=== PATIENT | male | born 1975 | race Caucasian/White ===

== ENCOUNTER 2020-04-10 09:24 | Inpatient (IN) | payer BC, SELFPAY ==
[2020-04-10] VITALS (13 sets, daily range): BP systolic 109–156; BP diastolic 66–104; PULSE 55–63; RESP 15–18; TEMP 36.4–36.6; O2SAT 94–97; BMI 36.2; BMI 36.8
--- NOTE | 2020-04-10 09:37 | CT_ITS ---
PROCEDURE: CT ABDOMEN PELVIS WO CON CLINICAL INDICATION: abdomen pain Left-sided abdominal pain COMPARISON: No exams were available for comparison TECHNIQUE: Axial images obtained with sagittal and coronal reformats. All CT scans at the facility use one or more dose reduction, viz: automated exposure control, ma/kV adjustment per patient size (including targeted exams where dose is matched to indication, i.e. head), or iterative reconstruction technique. FINDINGS: LOWER THORAX: No acute finding ABDOMEN & PELVIS: Fatty liver. Mild hepatomegaly. The liver measures 30 cm transverse and 23 cm cephalad caudad. There is splenomegaly at 16 cm. There is mild thickening of the GE junction. No renal or ureteral calculi or hydronephrosis. The adrenal glands have an unremarkable appearance. There is some minimal stranding of the fat adjacent to the pancreatic tail raising the suspicion of mild pancreatitis. There is mild thickening of the anterior pararenal fascia on the left which may also be seen with pancreatitis. No evidence of appendicitis. No intestinal obstruction or free air. There is a mild amount of retained colonic feces throughout the colon. Scattered small nodes are present in the mesenteries. No pelvic mass or abnormal fluid collection. No acute bony findings IMPRESSION: 1. Findings compatible with mild pancreatitis. 2. Hepatic splenomegaly 3. Moderate amount of retained colonic feces. Dictated by: Flakito Vasquez MD 04/10/2020 10:24 Electronically signed by Flakito Vasquez MD in [place] 04/10/2020 10:24
[2020-04-10 09:55] LABS: Basophils # 0.1 K/mm3 (0-0.2); Eosinophils # 0.2 K/mm3 (0.0-0.4); Mean Platelet Volume 9.7 fl (7.4-10.4); Monocytes # 0.6 K/mm3 (0.1-1.0); Monocytes % 5.3 % (1.7-9.3); Neutrophils # 6.8 K/mm3 (1.8-7.8); Red Cell Distribution Width 14.1 % (11.5-17.5)
[2020-04-10 09:59] LABS: Basophils % 0.8 % (0.1-2.0); Chloride 103 mmol/L (98-107); Eosinophils % 1.3 % (0.1-12.0); Hematocrit 45.2 % (42.0-52.0); Lymphocytes # 3.7 K/mm3 (0.7-4.5); Lymphocytes % 32.6 % (10-50); Platelet Count 184 K/mm3 (142-424); Potassium 4.6 mmoL/L (3.5-5.1); Red Blood Count 5.58 M/mm3 (4.60-6.20); Sodium 133 mmol/L (136-145); White Blood Count 11.3 K/mm3 (4.8-10.8)
[2020-04-10 10:02] LABS: Alanine Aminotransferase 37 U/L (12-78); Albumin Level 3.6 g/dl (3.5-5.0); Alkaline Phosphatase 110 U/L (38-126); Anion Gap 17.6 mEq/L (5-15); Aspartate Amino Transferase 27 U/L (17-59); Bilirubin,Total 0.8 mg/dl (0.2-1.3); Blood Urea Nitrogen 20 mg/dl (9-20); Carbon Dioxide 17 mmol/L (22.0-30.0); Creatinine Clearance Estimated 133 mL/min (50-200); Estimated Glomerular Filt Rate 82 ml/min (>60); GFR (African American) 99 ML/MIN (>60); Globulin 3.7 g/dL (1.3-3.2); Total Protein,Serum 7.3 g/dl (6.3-8.2)
[2020-04-10 10:05] LABS: Calcium 9.6 mg/dl (8.4-10.2); Glucose 330 mg/dl (74-100)
[2020-04-10 11:40] LABS: Amylase 37 U/L (30-110)
[2020-04-10 11:41] LABS: Lipase 548 U/L (23-300)
--- NOTE | 2020-04-10 13:00 | PC.NURSE ---
called Dr. Richmond office advised they were on lunch from 1-2, called out front and asked Dr. Talley to be paged
--- NOTE | 2020-04-10 13:41 | PC.NURSE ---
paged Dr. Talley
--- NOTE | 2020-04-10 14:06 | PC.NURSE ---
Calling Dr. Talley's office
--- NOTE | 2020-04-10 14:07 | PC.NURSE ---
No one answered, called switchboard and asked them to paged Dr. Talley again
--- NOTE | 2020-04-10 14:17 | PC.NURSE ---
SPEAKING WITH DR ARIAS AT THIS TIME
--- NOTE | 2020-04-10 15:07 | HMH.EDABDPAI ---
ED Disposition Clinical Impression: Polycythemia, Acute pancreatitis Disposition: Admitted As Inpatient Condition on Discharge: Good - Critical Care Critical Care Time: No Attestation: On 04/10/20, the high probability of a clinically significant, sudden or life threatening deterioration of the following system(s) required my full and direct attention, intervention and personal management. The time I documented below is in addition to time spent performing reported procedures but includes the following listed in this critical care notation. Medical Decision Making - Medical Records Medical records reviewed: Yes: I reviewed the patient's medical records. - Raymond Inquiry Pt receiving controlled substance: No Vital Signs: 04/10/20 09:27 04/10/20 10:30 04/10/20 11:10 Temperature 97.6 F Temperature Source Oral Pulse Rate [Radial] 63 59 L 59 L Respiratory Rate 18 Blood Pressure [Right Arm] 156/104 H 129/82 113/66 Blood Pressure Mean [Right Arm] 121 97 81 Blood Pressure Source [Right Arm] Automatic Cuff Automatic Cuff Automatic Cuff Blood Pressure Position [Right Arm] Sitting Sitting Sitting 02 Sat by Pulse Oximetry 97 97 95 Oxygen Delivery Method Room Air Room Air 04/10/20 11:34 04/10/20 12:03 04/10/20 12:43 Temperature Temperature Source Pulse Rate [Radial] 57 L 56 L 56 L Respiratory Rate Blood Pressure [Right Arm] 109/75 L 126/88 110/82 Blood Pressure Mean [Right Arm] 86 100 91 Blood Pressure Source [Right Arm] Automatic Cuff Automatic Cuff Automatic Cuff Blood Pressure Position [Right Arm] Sitting Sitting Sitting 02 Sat by Pulse Oximetry 95 95 94 L Oxygen Delivery Method Room Air Room Air Room Air 04/10/20 14:32 Temperature Temperature Source Pulse Rate [Radial] 55 L Respiratory Rate Blood Pressure [Right Arm] 114/72 Blood Pressure Mean [Right Arm] 86 Blood Pressure Source [Right Arm] Automatic Cuff Blood Pressure Position [Right Arm] Sitting 02 Sat by Pulse Oximetry 95 Oxygen Delivery Method Room Air - Lab Data Lab results reviewed: Yes: I reviewed the patient's lab results. Lab Results 04/10/20 09:45: WBC 11.3 H, RBC 5.58, Hgb 23.5 H*, Hct 45.2, MCV 81.0, MCH 42.1 H*, MCHC 51.9 H*, RDW 14.1, Plt Count 184, MPV 9.7, Neut % (Auto) 60.0, Lymph % (Auto) 32.6, [place] % (Auto) 5.3, Eos % (Auto) 1.3, Baso % (Auto) 0.8, Neut # (Auto) 6.8, Lymph # (Auto) 3.7, [place] # (Auto) 0.6, Eos # (Auto) 0.2, Baso # (Auto) 0.1 04/10/20 09:45: Sodium 133 L, Potassium 4.6, Chloride 103, Carbon Dioxide 17 L, Anion Gap 17.6 H, BUN 20, Creatinine 1.00, Estimated Creat Clear 133, Estimated GFR 82, Est GFR ( Amer) 99, Glucose 330 H, Calcium 9.6, Total Bilirubin 0.8, Conjugated Bilirubin 0.0, AST 27, ALT 37, Alkaline Phosphatase 110, Total Protein 7.3, Albumin 3.6, Globulin 3.7 H, Albumin/Globulin Ratio 1.0 L 04/10/20 09:45: Amylase 37, Lipase 548 H Result diagrams: 04/10/20 09:45 04/10/20 09:45 Orders (Tests/Meds): ED MEDICATIONS Discontinued Medications Generic Name Dose Route Start Last Admin Trade Name Freq PRN Reason Stop Dose Admin Sodium Chloride 1,000 mls @ 999 mls/hr 04/10/20 10:00 04/10/20 09:52 Sod Chlor 0.9% 1000ml Bag IV 04/10/20 11:00 999 mls/hr .Q1H1M LOREE Administration Ketorolac Tromethamine 30 mg 04/10/20 09:48 04/10/20 09:51 Toradol 30mg/Ml Vial IV 04/10/20 09:49 30 mg ONCE ONE Administration Morphine Sulfate 2 mg 04/10/20 10:30 04/10/20 10:33 Morphine 2mg/Ml Syringe IV 04/10/20 10:31 2 mg ONCE ONE Administration Ondansetron HCl 4 mg 04/10/20 10:30 04/10/20 10:33 Zofran 4mg/2ml Vial IV 04/10/20 10:31 4 mg ONCE ONE Administration - CT Data CT Scan: Abdomen, Pelvis Time Received: 12:[address] Reviewed: Yes: I have viewed the radiologist's interpretation Preliminary Findings: Abnormal (Early onset acute pancreatitis) Abdominal Pain HPI - General Chief Complaint: Abdominal Pain Stated Complaint: pain lowe
--- NOTE | 2020-04-10 15:12 | PC.NURSE ---
received report from nissa loving rn at this time, awaiting transfer orders from ER
--- NOTE | 2020-04-10 15:55 | P.CONPHA_ITS ---
[facility] Pharmacy VTE Monitoring - Patient Demographics Admission date: 04/10/20 Report Date: 04/10/20 Time: 15:55 Allergies/Adverse Reactions: Patient Allergies No Known Allergies Allergy (Verified 01/14/20 19:23) Height: 1.65 m Weight: 100.471 kg Patient Problems: Current Active Problems Polycythemia (Acute) Acute pancreatitis (Acute) - VTE Risk Labs: VTE Related Lab Results Hgb 23.5 g/dL (14.1-18.0) H* 04/10/20 09:45 Hct 45.2 % (42.0-52.0) 04/10/20 09:45 Plt Count 184 K/mm3 (142-424) 04/10/20 09:45 BUN 20 mg/dl (9-20) 04/10/20 09:45 Creatinine 1.00 mg/dl (0.66-1.25) 04/10/20 09:45 Estimated Creat Clear 133 mL/min (50-200) 04/10/20 09:45 - Prophylaxis VTE Prophylaxis Ordered?: Yes Types of VTE Prophylaxis: TEDS Knee High Location of Applied Device: Bilateral Lower Extremeties - VTE Diagnosis Confirmed Treatment or plan recommended: Continue Current Treatment
[2020-04-10 16:03] LABS: Mean Corpuscular Hemoglobin 28.3 pg (27.0-31.2)
[2020-04-10 16:09] LABS: Mean Corpuscular HGB Conc 35.1 g/dL (31.8-35.4)
[2020-04-10 16:10] LABS: Hemoglobin 15.9 g/dL (14.1-18.0)
--- NOTE | 2020-04-10 16:11 | HMH.HP ---
*Admission Date: 04/10/20 *Chief complaint: abdominal pain *History of present illness: Mr. Fitch is a pleasant 44-year-old male who presented to the ER due to acute onset of left upper quadrant pain. States that the pain was radiating through his abdomen down to the right lower abdomen. Denies any vomiting but has had some nausea that is persistent for the past 3 to 4 days with this episode. He states he has had several episodes of pancreatitis in the past due to his hypertriglyceridemia and recognized his symptoms as onset of a new episode. He has seen endocrinology before but does not currently. Has had some success taking fenofibrate and decreasing the recurrence of his episodes. On presentation to the ER he stated that his pain had been progressively worsening since waking up to the point was almost unbearable. Denies any recent fever, shakes or chills, cough or shortness of breath, headache or sore throat. He rated his abdominal pain as a 7 out of 10 on initial presentation, it is much improved by the time I interviewed him. Of note he ate a diabetic diet for dinner approximately 30 minutes before I interviewed him. Has not had worsening pain as of yet. Has responded well to pain control. Currently on IV fluids. On initial labs, patient had concerning finding for polycythemia. Repeat lab however confirmed normal hemoglobin and hematocrit. Initial erythrocytosis secondary to markedly lipemia of his sample. [facility] History I have reviewed the patient's past medical history: Yes Medical History: Reports:: Diabetes Mellitus Type 2, Hypertension *Have you ever received a pneumonia vaccine?: Yes *Have you received a flu vaccine this season?: No - *Social History Educational Level: Completed High School Smoking Status: Never smoker Alcohol Intake: never Substance Use Type: denies use *Occupational Status:: employed Housing: house Household Members: family *Travel in the last 8 weeks: None Family Hx:: No significant family history Review of Systems - Review of Systems Review of systems:: pertinent systems reviewed and negative unless documented below (14 point review of systems performed, pertinent positives and negatives as per HPI) Meds Home Medications Medication Instructions Recorded Confirmed Type atenolol 50 mg tablet 50 mg PO BID 05/21/19 04/10/20 History canagliflozin 100 mg tablet 100 mg PO DAILY 05/21/19 04/10/20 History glipizide 10 mg tablet, extended 10 mg PO BID 05/21/19 04/10/20 History release 24 hr lisinopril 2.5 mg tablet 2.5 mg PO DAILY 05/21/19 04/10/20 History Fenofibrate 160 mg PO DAILY 04/10/20 04/10/20 History Cecil-3 Acid Ethyl Esters [Lovaza] 1 gm PO BID 04/10/20 04/10/20 History Allergies Allergy/AdvReac Type Severity Reaction Status Date / Time No Known Allergies Allergy Verified 01/14/20 19:23 Exam Vital signs and Labs for Last 24 Hours: Temp Pulse Resp BP Pulse Ox 97.8 F 56 L 18 127/78 96 04/10/20 15:38 04/10/20 15:38 04/10/20 15:38 04/10/20 15:38 04/10/20 15:36 Laboratory Results - last 24 hr 04/10/20 09:45: WBC 11.3 H, RBC 5.58, Hgb 15.9, Hct 45.2, MCV 81.0, MCH 28.3, MCHC 35.1, RDW 14.1, Plt Count 184, MPV 9.7, Neut % (Auto) 60.0, Lymph % (Auto) 32.6, [place] % (Auto) 5.3, Eos % (Auto) 1.3, Baso % (Auto) 0.8, Neut # (Auto) 6.8, Lymph # (Auto) 3.7, [place] # (Auto) 0.6, Eos # (Auto) 0.2, Baso # (Auto) 0.1 04/10/20 09:45: Sodium 133 L, Potassium 4.6, Chloride 103, Carbon Dioxide 17 L, Anion Gap 17.6 H, BUN 20, Creatinine 1.00, Estimated Creat Clear 133, Estimated GFR 82, Est GFR ( Amer) 99, Glucose 330 H, Calcium 9.6, Total Bilirubin 0.8, Conjugated Bilirubin 0.0, AST 27, ALT 37, Alkaline Phosphatase 110, Total Protein 7.3, Albumin 3.6, Globulin 3.7 H, Albumin/Globulin Ratio 1.0 L 04/10/20 09:45: Amylase 37, Lipase 548 H I & O for Last 24 hours: Intake & Output 06/15/20 06/16/20 06/17/20 06/18/20 23:59 23:59 23:59 23:59 Weight 100.471 kg -
[2020-04-10 17:07] LABS: POC Glucose,Bedside 232 (70-110)
[2020-04-10 21:18] LABS: POC Glucose,Bedside 220 (70-110)
[2020-04-10 21:22] LABS: Cholesterol 669 mg/dl (140-200); Triglycerides 12764 mg/dl (30-150)
[2020-04-10 21:23] LABS: Chol/HDL Ratio 22.3 (1-3.5); Direct LDL Cholesterol 55 mg/dL (100-129); HDL Cholesterol 30 mg/dl (40-60)
--- NOTE | 2020-04-10 21:49 | PC.NURSE ---
CALLED AND SAID HE VIEWED PT LIPID PANAL AND HIS TRIGLYCERIDES WAS LESS THAN 13,000 AND HE WOULD LIKE TO PUT HIM ON AND INSULIN DRIP,TRITRATE FOR SUGARS OF 150-200.CLEAR LIQUID DIET NO FAT.PHONE WAS HANDED TO ODIN LEIGH-CHARGE NURSE.PT BEING MOVED TO STEP-DOWN.REPORT TO BE GIVEN TO ODIN PHELAN
--- NOTE | 2020-04-10 22:29 | PC.NURSE ---
REPORT RECIEVED FROM REESERN
[2020-04-10 23:52] LABS: POC Glucose,Bedside 269 (70-110)
[2020-04-10 23:52] LABS: POC Glucose,Bedside 261 (70-110)
[2020-04-11] VITALS (14 sets, daily range): BP systolic 100–146; BP diastolic 56–94; PULSE 57–86; RESP 12–20; TEMP 36.7–38.2; O2SAT 92–100; BMI 36.8; BMI 36.7
[2020-04-11 03:03] LABS: POC Glucose,Bedside 185 (70-110)
[2020-04-11 03:03] LABS: POC Glucose,Bedside 196 (70-110)
[2020-04-11 03:06] LABS: POC Glucose,Bedside 200 (70-110)
[2020-04-11 04:02] LABS: POC Glucose,Bedside 183 (70-110)
--- NOTE | 2020-04-11 04:07 | PC.NURSE ---
Time Glucose Insulin gtt changed to 2300 261 6 2400 269 7 0100 185 3 0200 196 5 0300 200 7 0400 183 7
[2020-04-11 06:03] LABS: Basophils # 0.1 K/mm3 (0-0.2); Basophils % 1.1 % (0.1-2.0); Eosinophils # 0.1 K/mm3 (0.0-0.4); Eosinophils % 1.5 % (0.1-12.0); Hematocrit 42.2 % (42.0-52.0); Lymphocytes # 2.2 K/mm3 (0.7-4.5); Lymphocytes % 36.1 % (10-50); Mean Corpuscular Volume 85.1 fl (80-94); Mean Platelet Volume 9.9 fl (7.4-10.4); Monocytes # 0.4 K/mm3 (0.1-1.0); Monocytes % 6.9 % (1.7-9.3); Neutrophils # 3.2 K/mm3 (1.8-7.8); Neutrophils % 54.4 % (37.0-80.0); Platelet Count 134 K/mm3 (142-424); Red Blood Count 4.96 M/mm3 (4.60-6.20); Red Cell Distribution Width 13.9 % (11.5-17.5)
[2020-04-11 06:05] LABS: Chloride 106 mmol/L (98-107); Potassium 4.2 mmoL/L (3.5-5.1); Sodium 135 mmol/L (136-145)
[2020-04-11 06:08] LABS: Alanine Aminotransferase 371 U/L (12-78); Albumin Level 3.5 g/dl (3.5-5.0); Albumin/Globulin Ratio 1.2 (1.1-1.8); Alkaline Phosphatase 88 U/L (38-126); Anion Gap 13.2 mEq/L (5-15); Aspartate Amino Transferase 586 U/L (17-59); Bilirubin,Total 1.4 mg/dl (0.2-1.3); Blood Urea Nitrogen 15 mg/dl (9-20); Calcium 8.9 mg/dl (8.4-10.2); Carbon Dioxide 20 mmol/L (22.0-30.0); Creatinine Clearance Estimated 113 mL/min (50-200); Estimated Glomerular Filt Rate 66 ml/min (>60); GFR (African American) 80 ML/MIN (>60); Globulin 2.9 g/dL (1.3-3.2); Glucose 134 mg/dl (74-100); Lipase 333 U/L (23-300); Total Protein,Serum 6.4 g/dl (6.3-8.2)
[2020-04-11 06:11] LABS: Mean Corpuscular HGB Conc 35.3 g/dL (31.8-35.4); Mean Corpuscular Hemoglobin 29.8 pg (27.0-31.2)
[2020-04-11 06:13] LABS: Hemoglobin 14.9 g/dL (14.1-18.0)
--- NOTE | 2020-04-11 06:17 | PC.NURSE ---
Time Glucose Insulin changed to 0500 167 5 0600 152 3
[2020-04-11 06:26] LABS: POC Glucose,Bedside 152 (70-110)
[2020-04-11 06:40] LABS: POC Glucose,Bedside 167 (70-110)
[2020-04-11 06:58] LABS: POC Glucose,Bedside 169 (70-110)
--- NOTE | 2020-04-11 07:42 | US_ITS ---
PROCEDURE: US ABDOMEN LIMITED CLINICAL INDICATION: pancreatitis, acute elevation in liver enzymes COMPARISON: No exams were available for comparison FINDINGS: PANCREAS: The pancreas is normal in size showing mild diffuse fatty infiltration. There are no obvious inflammatory changes noted. LIVER: The liver is upper limits of normal in size and shows overall increase in somewhat coarsened appearing echogenicity consistent with diffuse hepatic steatosis. There are no focal lesions. There is appropriate directional flow in the nondilated portal vein. RIGHT KIDNEY: The right kidney measures 12.2 x 5.8 by 7.3 cm and appears sonographically normal. GALLBLADDER: The patient is post cholecystectomy, the common bile duct is normal in caliber. IMPRESSION: Diffuse hepatic steatosis along with probable fatty infiltration of the pancreas without obvious findings of pancreatitis Dictated by: Dr. Turner Baker MD 04/11/2020 13:[address] Turner Baker MD in [place] 04/11/2020 13:49
--- NOTE | 2020-04-11 08:00 | PC.NURSE ---
INCREASED INSULIN DRIP TO 5 UNITS/HR
[2020-04-11 08:05] LABS: POC Glucose,Bedside 213 (70-110)
--- NOTE | 2020-04-11 08:55 | HMH.ACPN2 ---
Internal Medicine - PN: Subj *Date: 04/11/20 *Time: 13:10 Interval history: Constantine is done well overnight. Denies any nausea or vomiting. Actually states he is got improvement in his abdominal discomfort. Has tolerated insulin drip with glucose running between 150 and 225 overnight. Repeat labs this morning reviewed, triglycerides have decreased by half to approximately 6000. Electrolytes appear stable. Kidney function stable. Liver function has worsened with an especially increase in LFTs. Tolerating clear liquid diet last night though he is n.p.o. at this time for ultrasound of right upper quadrant. Girlfriend is at bedside. Questions answered on rounds. Clinically patient looks well, but is weak per his report. Stable on room air, afebrile. Exam Vital signs and Labs for Last 24 Hours: Temp Pulse Resp BP Pulse Ox 98.5 F 65 16 112/62 93 L 04/11/20 08:00 04/11/20 08:00 04/11/20 08:00 04/11/20 08:00 04/11/20 08:00 Laboratory Results - last 24 hr 04/10/20 09:45: WBC 11.3 H, RBC 5.58, Hgb 15.9, Hct 45.2, MCV 81.0, MCH 28.3, MCHC 35.1, RDW 14.1, Plt Count 184, MPV 9.7, Neut % (Auto) 60.0, Lymph % (Auto) 32.6, [place] % (Auto) 5.3, Eos % (Auto) 1.3, Baso % (Auto) 0.8, Neut # (Auto) 6.8, Lymph # (Auto) 3.7, [place] # (Auto) 0.6, Eos # (Auto) 0.2, Baso # (Auto) 0.1 04/10/20 09:45: Sodium 133 L, Potassium 4.6, Chloride 103, Carbon Dioxide 17 L, Anion Gap 17.6 H, BUN 20, Creatinine 1.00, Estimated Creat Clear 133, Estimated GFR 82, Est GFR ( Amer) 99, Glucose 330 H, Calcium 9.6, Total Bilirubin 0.8, Conjugated Bilirubin 0.0, AST 27, ALT 37, Alkaline Phosphatase 110, Total Protein 7.3, Albumin 3.6, Globulin 3.7 H, Albumin/Globulin Ratio 1.0 L 04/10/20 09:45: Amylase 37, Lipase 548 H 04/10/20 09:45: Hemoglobin A1c 8.0 H 04/10/20 09:45: Triglycerides 22880 H, Cholesterol 669 H, LDL Cholesterol Direct 55 L, HDL Cholesterol 30 L, Cholesterol/HDL Ratio 22.3 H 04/10/20 16:42: POC Glucose 232 H 04/10/20 20:25: POC Glucose 220 H 04/10/20 22:55: POC Glucose 261 H 04/10/20 23:44: POC Glucose 269 H 04/11/20 00:42: POC Glucose 185 H 04/11/20 01:58: POC Glucose 196 H 04/11/20 02:57: POC Glucose 200 H 04/11/20 03:55: POC Glucose 183 H 04/11/20 05:06: POC Glucose 167 H 04/11/20 05:35: WBC 6.0 D, RBC 4.96, Hgb 14.9, Hct 42.2, MCV 85.1, MCH 29.8, MCHC 35.3, RDW 13.9, Plt Count 134 L D, MPV 9.9, Neut % (Auto) 54.4, Lymph % (Auto) 36.1, [place] % (Auto) 6.9, Eos % (Auto) 1.5, Baso % (Auto) 1.1, Neut # (Auto) 3.2, Lymph # (Auto) 2.2, [place] # (Auto) 0.4, Eos # (Auto) 0.1, Baso # (Auto) 0.1 04/11/20 05:35: Sodium 135 L, Potassium 4.2, Chloride 106, Carbon Dioxide 20 L, Anion Gap 13.2, BUN 15, Creatinine 1.20, Estimated Creat Clear 113, Estimated GFR 66, Est GFR ( Amer) 80, Glucose 134 H D, Calcium 8.9, Total Bilirubin 1.4 H, AST 586 H* D, ALT 371 H*, Alkaline Phosphatase 88, Total Protein 6.4, Albumin 3.5, Globulin 2.9, Albumin/Globulin Ratio 1.2, Lipase 333 H 04/11/20 06:14: POC Glucose 152 H 04/11/20 06:51: POC Glucose 169 H 04/11/20 07:57: POC Glucose 213 H I & O for Last 24 hours: Intake & Output 04/08/20 04/09/20 04/10/20 04/11/20 23:59 23:59 23:59 23:59 Intake Total 480 / 490 1696 / 1696 Balance 480 / 490 1696 / 1696 Weight 100.471 kg 100.471 kg Narrative: - *Routine HEENT Exam Head: Present: normocephalic Eye: Present: EOMI, PERRL ENT: Present: mucous membranes moist - *Routine Neck Exam Present: supple. Absent: lymphadenopathy - *Routine Respiratory Exam Present: CTA bilaterally - *Routine Cardiovascular Exam Present: RRR - *Routine Abdominal Exam Present: soft, normoactive bowel sounds, overall improvement in tenderness, very minimal on exam today. Nonfocal. No rebound or guarding. Prominent liver felt hands with below costal margin. - *Routine Extremities Exam Absent: cyanosis, clubbing, edema - *Routine Skin Exam Present: warm. Absent: rash - *Routine Neurological Exam Present: [place]
[2020-04-11 09:13] LABS: HDL Cholesterol 19 mg/dl (40-60)
[2020-04-11 09:24] LABS: Direct LDL Cholesterol 128.12 mg/dL (100-129)
[2020-04-11 09:27] LABS: Chol/HDL Ratio 24.1 (1-3.5); Cholesterol 458 mg/dl (140-200)
[2020-04-11 09:35] LABS: Triglycerides 6295 mg/dl (30-150)
[2020-04-11 09:52] LABS: POC Glucose,Bedside 187 (70-110)
[2020-04-11 12:07] LABS: POC Glucose,Bedside 133 (70-110)
--- NOTE | 2020-04-11 12:52 | PC.NURSE ---
LATE ENTRY 1200 INSULIN TURNED DOWN TO 3 UNITS/HR
[2020-04-11 14:11] LABS: POC Glucose,Bedside 220 (70-110)
--- NOTE | 2020-04-11 15:17 | DIET.NUTRFU ---
Nutritional assessment completed, diet education for dm and low fat diet provided. 75-100% PO intake of clear liquids today with good toleration, BG moderate- ~170. Will continue to monitor.
--- NOTE | 2020-04-11 16:09 | PC.NURSE ---
PATIENT REPORTS HAVING 4 EPISODES OF DIARRHEA TODAY. HE STATES THAT HE THINKS IT IS RELATED TO HIS CLEAR LIQUID DIET. PLACED IN CONTACT [employer] PENDING STOOL SAMPLE.
[2020-04-11 16:11] LABS: POC Glucose,Bedside 206 (70-110)
[2020-04-11 16:48] LABS: Adenovirus F 40/41, stool Not Detected (NotDetected); Astrovirus Not Detected (NotDetected); Campylobacter Not Detected (NotDetected); Cryptosporidium Not Detected (NotDetected); Cyclospora Cayetanesis Not Detected (NotDetected); Entamoeba histolytica Not Detected (NotDetected); Enteroaggregative E coli Not Detected (NotDetected); Enteropathogenic E coli Not Detected (NotDetected); Enterotoxigenic E coli Not Detected (NotDetected); Giardia lamblia Not Detected (NotDetected); Norovirus Not Detected (NotDetected); Plesimonas Shigalloides, PCR Not Detected (NotDetected); Rotavirus A Not Detected (NotDetected); Salmonella, PCR Not Detected (NotDetected); Sapovirus Not Detected (NotDetected); Shiga-like toxin E coli Not Detected (NotDetected); Shigella Enterovasive E coli Not Detected (NotDetected); Vibrio Cholerae Not Detected (NotDetected); Vibrio, PCR Not Detected (NotDetected); Yersinia Entercolitica, PCR Not Detected (NotDetected)
--- NOTE | 2020-04-11 17:04 | PC.NURSE ---
LATE ENTRY 1400 INCREASED INSULIN 5 UNITS/HR 1600 INCREASED INSULIN 7 UNITS/HR
--- NOTE | 2020-04-11 17:25 | PC.NURSE ---
1700 - Received report and resumed care from Solange Betts RN
--- NOTE | 2020-04-11 18:07 | PC.NURSE ---
Insulin gtt decreased to 5 units/hr
[2020-04-11 18:21] LABS: Chloride 105 mmol/L (98-107); Potassium 4.3 mmoL/L (3.5-5.1); Sodium 134 mmol/L (136-145)
[2020-04-11 18:24] LABS: Anion Gap 11.3 mEq/L (5-15); Blood Urea Nitrogen 9 mg/dl (9-20); Calcium 8.9 mg/dl (8.4-10.2); Carbon Dioxide 22 mmol/L (22.0-30.0); Creatinine Clearance Estimated 135 mL/min (50-200); Estimated Glomerular Filt Rate 82 ml/min (>60); GFR (African American) 99 ML/MIN (>60); Glucose 168 mg/dl (74-100); Magnesium 1.9 mg/dl (1.6-2.3); Phosphorous 2.4 mg/dl (2.5-4.5)
[2020-04-11 18:34] LABS: Clostridium Difficile A/B, PCR Detected (NotDetected)
--- NOTE | 2020-04-11 19:11 | PC.NURSE ---
report given to alex
[2020-04-11 20:59] LABS: POC Glucose,Bedside 168 (70-110)
[2020-04-11 20:59] LABS: POC Glucose,Bedside 148 (70-110)
[2020-04-11 20:59] LABS: POC Glucose,Bedside 169 (70-110)
[2020-04-11 21:15] LABS: Chol/HDL Ratio 14.5 (1-3.5); Cholesterol 319 mg/dl (140-200); HDL Cholesterol 22 mg/dl (40-60)
[2020-04-11 21:30] LABS: Direct LDL Cholesterol 36.33 mg/dL (100-129)
[2020-04-11 22:41] LABS: Triglycerides 4323 mg/dl (30-150)
[2020-04-11 23:03] LABS: POC Glucose,Bedside 140 (70-110)
[2020-04-11 23:03] LABS: POC Glucose,Bedside 156 (70-110)
[2020-04-12] VITALS (15 sets, daily range): BP systolic 107–147; BP diastolic 64–88; PULSE 60–80; RESP 14–20; TEMP 36–37.7; O2SAT 96–100; BMI 37.2
[2020-04-12 00:13] LABS: POC Glucose,Bedside 175 (70-110)
[2020-04-12 02:04] LABS: POC Glucose,Bedside 180 (70-110)
--- NOTE | 2020-04-12 03:52 | PC.NURSE ---
Pt has rested on and off t/o shift. Pt is A&O x4. Pt was febrile x1 during this shift. This nurse took all of pt's blankets off of him, applied cold towel to forehead and back of neck and lowered temperature in room. Pt has been afebrile ever since. Lungs sounds are clear bilaterally. Hyperactive bowel sounds in all 4 quadrants. Pt is under contact enteric precautions per stool sample positive for C. diff. All nursing staff wearing the proper PPE. Insulin gtt is running at 5 units/hr, through 20 in LFA and D5 0.45% NS with 20K running through LAC. has been at bedside the entire night. Call light is within reach, along with all other safety measures. No complaints at this time, will continue to monitor for any changes.
[2020-04-12 04:14] LABS: POC Glucose,Bedside 208 (70-110)
--- NOTE | 2020-04-12 04:38 | PC.NURSE ---
Addendum entered by Nimo Hoskins RN 04/12/20 06:12: 0600 175 3 units Original Note: Insulin titrated as followed: TIME BLOOD SUGAR TITRATED TO 1999 148 3 units 2120 140 2 units 0000 175 3 units 0400 208 5 units
[2020-04-12 06:17] LABS: POC Glucose,Bedside 175 (70-110)
[2020-04-12 07:00] LABS: Chloride 108 mmol/L (98-107); Potassium 3.9 mmoL/L (3.5-5.1); Sodium 136 mmol/L (136-145)
[2020-04-12 07:03] LABS: Alanine Aminotransferase 297 U/L (12-78); Albumin Level 3.6 g/dl (3.5-5.0); Albumin/Globulin Ratio 1.4 (1.1-1.8); Alkaline Phosphatase 86 U/L (38-126); Anion Gap 9.9 mEq/L (5-15); Aspartate Amino Transferase 159 U/L (17-59); Blood Urea Nitrogen 6 mg/dl (9-20); Calcium 9.3 mg/dl (8.4-10.2); Carbon Dioxide 22 mmol/L (22.0-30.0); Creatinine Clearance Estimated 124 mL/min (50-200); Estimated Glomerular Filt Rate 73 ml/min (>60); GFR (African American) 88 ML/MIN (>60); Globulin 2.6 g/dL (1.3-3.2); Glucose 185 mg/dl (74-100); Total Protein,Serum 6.2 g/dl (6.3-8.2)
[2020-04-12 07:41] LABS: Chol/HDL Ratio 13.8 (1-3.5); Cholesterol 303 mg/dl (140-200); HDL Cholesterol 22 mg/dl (40-60)
--- NOTE | 2020-04-12 07:43 | HMH.ACPN2 ---
Internal Medicine - PN: Miguelangel *Date: 04/12/20 *Time: 07:43 Interval history: Overall patient feels better, has tolerated full liquid diet well. Diarrhea has also resolved. Exam Vital signs and Labs for Last 24 Hours: Temp Pulse Resp BP Pulse Ox 98.0 F 61 14 137/85 99 04/12/20 07:37 04/12/20 06:31 04/12/20 06:31 04/12/20 06:31 04/12/20 06:31 Laboratory Results - last 24 hr 04/10/20 09:45: LDL Cholesterol Direct 94 04/11/20 07:57: POC Glucose 213 H 04/11/20 08:43: Triglycerides 6295 H, Cholesterol 458 H, LDL Cholesterol Direct 128.12, HDL Cholesterol 19 L, Cholesterol/HDL Ratio 24.1 H 04/11/20 09:44: POC Glucose 187 H 04/11/20 12:00: POC Glucose 133 H 04/11/20 14:03: POC Glucose 220 H 04/11/20 16:03: POC Glucose 206 H 04/11/20 16:38: Stl Aeromonas (PCR) Not detected, Stl C. cayetanensis PCR Not detected, Stool Rotavirus (PCR) Not detected, Stl Adenov F 40/41 PCR Not detected, Stool Astrovirus (PCR) Not detected, Stool Campylobacter PCR Not detected, Stl C.difficile Tox PCR Detected A, Stool Cryptosporidium PCR Not detected, Stl E.coli Shiga Tox PCR Not detected, Stool E coli O157 PCR Not detected, Stl Enterotoxigenic E PCR Not detected, Stool EPEC (PCR) Not detected, Stool EAEC (PCR) Not detected, Stl E. histolytica PCR Not detected, Stool Giardia Lamblia PCR Not detected, Stool Salmonella PCR Not detected, Stool Sapovirus (PCR) Not detected, Stl P. shigelloides PCR Not detected, Stl Shigella/EIEC PCR Not detected, St Y.enterocolitica PCR Not detected, Stool Vibrio (PCR) Not detected, Stl Vibrio cholerae PCR Not detected, Stl Norovirus GI/GII PCR Not detected 04/11/20 18:06: POC Glucose 168 H 04/11/20 18:10: Sodium 134 L, Potassium 4.3, Chloride 105, Carbon Dioxide 22, Anion Gap 11.3, BUN 9 D, Creatinine 1.00, Estimated Creat Clear 135, Estimated GFR 82, Est GFR ( Amer) 99 D, Glucose 168 H D, Calcium 8.9 04/11/20 18:10: Phosphorus 2.4 L, Magnesium 1.9 04/11/20 18:52: POC Glucose 169 H 04/11/20 20:29: POC Glucose 148 H 04/11/20 20:57: Triglycerides 4323 H, Cholesterol 319 H, LDL Cholesterol Direct 36.33 L, HDL Cholesterol 22 L, Cholesterol/HDL Ratio 14.5 H 04/11/20 21:19: POC Glucose 140 H 04/11/20 22:23: POC Glucose 156 H 04/12/20 00:06: POC Glucose 175 H 04/12/20 01:44: POC Glucose 180 H 04/12/20 04:05: POC Glucose 208 H 04/12/20 05:45: Sodium 136, Potassium 3.9, Chloride 108 H, Carbon Dioxide 22, Anion Gap 9.9, BUN 6 L D, Creatinine 1.10, Estimated Creat Clear 124, Estimated GFR 73, Est GFR ( Amer) 88, Glucose 185 H, Calcium 9.3, Total Bilirubin 1.0, AST 159 H D, ALT 297 H, Alkaline Phosphatase 86, Total Protein 6.2 L, Albumin 3.6, Globulin 2.6, Albumin/Globulin Ratio 1.4 04/12/20 06:10: POC Glucose 175 H I & O for Last 24 hours: Intake & Output 04/09/20 04/10/20 04/11/20 04/12/20 11:59 11:59 11:59 11:59 Intake Total 2796 / 2796 3430 / 3430 Balance 2796 / 2796 3430 / 3430 Weight 218 lb 221 lb 8.01 oz 223 lb 4 oz Narrative: Patient is pleasant, alert, in absolutely no distress. Lungs clear. Oropharynx clear. No JVD. Heart rate regular. Abdomen soft, nontender, no [place] or [place] sign. No edema or clubbing. Neurologically intact. Assessment and Plan (1) Acute pancreatitis Current visit: Yes Status: Acute Qualifiers: Pancreatitis type: other Category: Medical Code(s): K85.90 - Acute pancreatitis without necrosis or infection, unspecified (2) Hypertriglyceridemia Current visit: Yes Status: Chronic Category: Medical Code(s): E78.1 - Pure hyperglyceridemia (3) Hypertension Current visit: Yes Status: Chronic Qualifiers: Hypertension type: essential hypertension Qualified Code(s): I10 - Essential (primary) hypertension Category: Medical Code(s): I10 - Essential (primary) hypertension (4) Type 2 diabetes mellitus Current visit: Yes Status: Chronic Qualifiers: Diabetes mellitus chcf insulin use: without ra
[2020-04-12 07:52] LABS: Direct LDL Cholesterol 38.27 mg/dL (100-129)
[2020-04-12 07:58] LABS: Triglycerides 2784 mg/dl (30-150)
[2020-04-12 08:49] LABS: POC Glucose,Bedside 268 (70-110)
[2020-04-12 10:57] LABS: POC Glucose,Bedside 187 (70-110)
--- NOTE | 2020-04-12 11:05 | PC.NURSE ---
Spoke to Dr. Nelson during morning rounds related to insulin drip. States to keep him at 5 units an hour and keep monitoring blood glucose. States not to follow DKA protocol related to not being in DKA.
[2020-04-12 12:26] LABS: POC Glucose,Bedside 203 (70-110)
[2020-04-12 14:17] LABS: POC Glucose,Bedside 270 (70-110)
[2020-04-12 16:13] LABS: POC Glucose,Bedside 179 (70-110)
--- NOTE | 2020-04-12 16:33 | PC.NURSE ---
Pt has been pleasant and cooperative this shift. A&O X4. No complaints of pain or SOA. Pt is step-down status and receiving a continuous Insulin drip with FSBS Q2H. Lungs CTA. No edema noted. Skin is c/d/i. Telemetry reveals NSR with a rate between 60-80. Pt is on room air and sats. have remained >95%. Pt ambulates independently to and from the bathroom. 20 G peripheral IV in the LT AC is patent and infusing D5W 0.45% NS w/ 20K+ @ 200 ML/HR. 20 G peripheral IV in the RT AC is patent and infusing regular Insulin @ 5 ML/HR. B/P has periodically been slightly elevated, but otherwise VSS. Call light within reach. Will continue to monitor.
[2020-04-12 18:21] LABS: POC Glucose,Bedside 230 (70-110)
[2020-04-12 20:15] LABS: POC Glucose,Bedside 210 (70-110)
[2020-04-12 21:21] LABS: Chol/HDL Ratio 10.7 (1-3.5); Cholesterol 322 mg/dl (140-200); HDL Cholesterol 30 mg/dl (40-60)
[2020-04-12 21:31] LABS: Direct LDL Cholesterol 35.73 mg/dL (100-129)
[2020-04-12 21:57] LABS: Triglycerides 2466 mg/dl (30-150)
[2020-04-12 22:20] LABS: POC Glucose,Bedside 177 (70-110)
[2020-04-13] VITALS (16 sets, daily range): BP systolic 108–154; BP diastolic 54–92; PULSE 51–74; RESP 12–18; TEMP 36.3–36.9; O2SAT 95–98; BMI 37.2
[2020-04-13 00:24] LABS: POC Glucose,Bedside 157 (70-110)
[2020-04-13 02:08] LABS: POC Glucose,Bedside 169 (70-110)
--- NOTE | 2020-04-13 02:10 | PC.NURSE ---
He continues in contact enteric precautions. He reports having a BM on 04/12/20. He denies pain. Continues on RA. NSR on telemetry. Insulin gtt has remained at 5units/hr.
[2020-04-13 04:23] LABS: POC Glucose,Bedside 130 (70-110)
[2020-04-13 06:19] LABS: POC Glucose,Bedside 134 (70-110)
[2020-04-13 07:17] LABS: HDL Cholesterol 32 mg/dl (40-60)
[2020-04-13 07:25] LABS: Triglycerides 2028 mg/dl (30-150)
[2020-04-13 07:27] LABS: Chol/HDL Ratio 17.3 (1-3.5); Cholesterol 555 mg/dl (140-200)
[2020-04-13 07:31] LABS: Direct LDL Cholesterol 39.85 mg/dL (100-129)
--- NOTE | 2020-04-13 07:53 | HMH.ACPN2 ---
Internal Medicine - PN: Subj *Date: 04/13/20 *Time: 07:53 Interval history: Patient is awake, alert, pleasant, tolerated low-fat diet well. Continues to have some loose stool Exam Vital signs and Labs for Last 24 Hours: Temp Pulse Resp BP Pulse Ox 97.8 F 57 L 17 108/54 L 97 04/13/20 07:22 04/13/20 06:00 04/12/20 20:00 04/13/20 06:00 04/13/20 06:00 Laboratory Results - last 24 hr 04/12/20 05:45: Triglycerides 2784 H, LDL Cholesterol Direct 38.27 L 04/12/20 08:43: POC Glucose 268 H 04/12/20 10:50: POC Glucose 187 H 04/12/20 12:18: POC Glucose 203 H 04/12/20 14:10: POC Glucose 270 H 04/12/20 16:05: POC Glucose 179 H 04/12/20 18:10: POC Glucose 230 H 04/12/20 20:02: POC Glucose 210 H 04/12/20 20:50: Triglycerides 2466 H, Cholesterol 322 H, LDL Cholesterol Direct 35.73 L, HDL Cholesterol 30 L, Cholesterol/HDL Ratio 10.7 H 04/12/20 22:12: POC Glucose 177 H 04/13/20 00:15: POC Glucose 157 H 04/13/20 02:00: POC Glucose 169 H 04/13/20 04:13: POC Glucose 130 H 04/13/20 06:11: POC Glucose 134 H 04/13/20 06:27: Triglycerides 2028 H, Cholesterol 555 H, LDL Cholesterol Direct 39.85 L, HDL Cholesterol 32 L, Cholesterol/HDL Ratio 17.3 H I & O for Last 24 hours: Intake & Output 04/10/20 04/11/20 04/12/20 04/13/20 11:59 11:59 11:59 11:59 Intake Total 2796 / 2796 3430 / 3430 8192 / 8192 Output Total 850 / 850 Balance 2796 / 2796 3430 / 3430 7342 / 7342 Weight 218 lb 221 lb 8.01 oz 223 lb 4 oz 223 lb 3.982 oz - *Routine HEENT Exam Head: Present: normocephalic Eye: Present: EOMI, PERRL ENT: Present: mucous membranes moist - *Routine Neck Exam Present: supple. Absent: lymphadenopathy - *Routine Respiratory Exam Present: CTA bilaterally - *Routine Cardiovascular Exam Present: RRR - *Routine Abdominal Exam Present: soft, normoactive bowel sounds. Absent: tenderness - *Routine Extremities Exam Absent: cyanosis, clubbing, edema - *Routine Skin Exam Present: warm. Absent: rash - *Routine Neurological Exam Present: alert, oriented X3 Assessment and Plan (1) Acute pancreatitis Current visit: Yes Status: Acute Qualifiers: Pancreatitis type: other Category: Medical Code(s): K85.90 - Acute pancreatitis without necrosis or infection, unspecified (2) Hypertriglyceridemia Current visit: Yes Status: Chronic Category: Medical Code(s): E78.1 - Pure hyperglyceridemia (3) Hypertension Current visit: Yes Status: Chronic Qualifiers: Hypertension type: essential hypertension Qualified Code(s): I10 - Essential (primary) hypertension Category: Medical Code(s): I10 - Essential (primary) hypertension (4) Type 2 diabetes mellitus Current visit: Yes Status: Chronic Qualifiers: Diabetes mellitus termite exterminator insulin use: without termite exterminator use Diabetes mellitus complication status: without complication Qualified Code(s): E11.9 - Type 2 diabetes mellitus without complications Category: Medical Code(s): E11.9 - Type 2 diabetes mellitus without complications (5) Hepatitis Current visit: Yes Status: Acute Category: Medical Code(s): K75.9 - Inflammatory liver disease, unspecified (6) C. difficile colitis Current visit: Yes Status: Acute Category: Medical Code(s): A04.72 - Enterocolitis due to Clostridium difficile, not specified as recurrent - Assessment and plan all Dx Assessment and Plan for all problems:: Patient's abdomen remains surprisingly nontender. Triglycerides are coming down nicely. Add fenofibrate, niacin and restart patient's fish oil tonight. Continue monitoring labs. Continue treatment for C. difficile that was present on admission.
[2020-04-13 08:45] LABS: POC Glucose,Bedside 211 (70-110)
[2020-04-13 10:17] LABS: POC Glucose,Bedside 223 (70-110)
[2020-04-13 12:09] LABS: POC Glucose,Bedside 201 (70-110)
[2020-04-13 14:21] LABS: POC Glucose,Bedside 222 (70-110)
[2020-04-13 16:17] LABS: POC Glucose,Bedside 206 (70-110)
--- NOTE | 2020-04-13 16:51 | PC.NURSE ---
Pt has been pleasant and cooperative this shift. A&O X4. No complaints of pain or SOA. Pt remains step-down status and is receiving a continuous Insulin drip with FSBS Q2H. Contact enteric precautions in place due to C-difficile diagnosis. Lungs CTA. No edema noted. Skin is c/d/i. Telemetry reveals NSR and occasional SB with a rate between 50-70. Pt is on room air and sats. have remained >95%. Pt ambulates independently to and from the bathroom. Pt reports 2 loose stools thus far this shift. 20 G peripheral IV in the LT AC is patent and infusing D5W 0.45% NS w/ 20K+ @ 200 ML/HR. 20 G peripheral IV in the RT AC is patent and infusing regular Insulin @ 5 ML/HR. VSS. Call light within reach. Will continue to monitor.
[2020-04-13 18:03] LABS: Cholesterol 294 mg/dl (140-200)
[2020-04-13 18:04] LABS: Chol/HDL Ratio 12.3 (1-3.5); HDL Cholesterol 24 mg/dl (40-60)
[2020-04-13 18:14] LABS: Direct LDL Cholesterol 33.44 mg/dL (100-129)
[2020-04-13 18:14] LABS: POC Glucose,Bedside 281 (70-110)
[2020-04-13 18:21] LABS: Triglycerides 2302 mg/dl (30-150)
[2020-04-13 22:24] LABS: POC Glucose,Bedside 233 (70-110)
[2020-04-13 22:24] LABS: POC Glucose,Bedside 269 (70-110)
[2020-04-14] VITALS (8 sets, daily range): BP systolic 113–137; BP diastolic 67–82; PULSE 60–70; RESP 16–18; TEMP 36.4–36.7; O2SAT 95–97; BMI 37.3
[2020-04-14 00:23] LABS: POC Glucose,Bedside 245 (70-110)
[2020-04-14 02:22] LABS: POC Glucose,Bedside 209 (70-110)
[2020-04-14 04:09] LABS: POC Glucose,Bedside 180 (70-110)
[2020-04-14 05:49] LABS: Chol/HDL Ratio 12.6 (1-3.5); Cholesterol 278 mg/dl (140-200); HDL Cholesterol 22 mg/dl (40-60)
[2020-04-14 06:01] LABS: Triglycerides 2341 mg/dl (30-150)
[2020-04-14 06:02] LABS: Direct LDL Cholesterol < 30.00 mg/dL (100-129)
[2020-04-14 06:16] LABS: POC Glucose,Bedside 182 (70-110)
--- NOTE | 2020-04-14 06:49 | PC.NURSE ---
Pt has rested on and off t/o this shift. A&O x4, lung sounds clear, pulses equal. Pt remains on insulin gtt at 5 units/hr and D5 0.45% NS with 20 MEQ K+. has remained at bedside this evening. Call light is within reach, along with all other safety measures. No complaints at this time, will continue to monitor for any changes.
--- NOTE | 2020-04-14 07:41 | HMH.DCSUM ---
General - General Admission date:: 04/10/20 Discharge date: 04/14/20 HPI HPI: Mr. Fitch is a pleasant 44-year-old male who presented to the ER due to acute onset of left upper quadrant pain. States that the pain was radiating through his abdomen down to the right lower abdomen. Denies any vomiting but has had some nausea that is persistent for the past 3 to 4 days with this episode. He states he has had several episodes of pancreatitis in the past due to his hypertriglyceridemia and recognized his symptoms as onset of a new episode. He has seen endocrinology before but does not currently. Has had some success taking fenofibrate and decreasing the recurrence of his episodes. On presentation to the ER he stated that his pain had been progressively worsening since waking up to the point was almost unbearable. Denies any recent fever, shakes or chills, cough or shortness of breath, headache or sore throat. He rated his abdominal pain as a 7 out of 10 on initial presentation, it is much improved by the time I interviewed him. Of note he ate a diabetic diet for dinner approximately 30 minutes before I interviewed him. Has not had worsening pain as of yet. Has responded well to pain control. Currently on IV fluids. On initial labs, patient had concerning finding for polycythemia. Repeat lab however confirmed normal hemoglobin and hematocrit. Initial erythrocytosis secondary to markedly lipemia of his sample. Hospital Course Hospital Course: Patient was admitted. Given his significant hypertriglyceridemia and need for lowering emergently insulin drip was started and this was very successful in dramatically reducing his triglycerides over the next 3 to 4 days to the 2000 level. He felt much better. Incidentally patient was found to have C. difficile colitis, present on admission, treated with oral vancomycin he did well with this. Patient was cautiously advanced to a low-fat diet and did well. This morning he was feeling great, wished to go home. Plan will be as follows: He will be discharged and follow-up in our office on to reassess pain and medication response. He will be placed on fenofibrate, and prescription fish oil for his triglycerides, consideration to start statin will be made on . Patient has had a previous respiratory reaction to niacin and so we will hold off on this. He will also be placed on Lantus insulin 10 units at night and oral antidiabetic agents will be held given possible propensity for pancreatitis. Of note given patient's diabetic status we will stop atenolol, increase lisinopril to 5 mg daily. Continue vancomycin orally at home for 4 more days. Patient has been asymptomatic in the hospital for the last 48 hours. Objective Vital signs: Temp Pulse Resp BP Pulse Ox 97.9 F 62 16 115/82 96 04/14/20 04:00 04/14/20 06:00 04/14/20 06:00 04/14/20 06:00 04/14/20 06:00 no acute distress - *Routine HEENT Exam Head: Present: normocephalic Eye: Present: EOMI, PERRL ENT: Present: mucous membranes moist - *Routine Neck Exam Present: supple - *Routine Respiratory Exam Present: CTA bilaterally - *Routine Cardiovascular Exam Present: RRR - *Routine Abdominal Exam Present: soft, normoactive bowel sounds. Absent: tenderness - *Routine Extremities Exam Absent: cyanosis, clubbing, edema - *Routine Skin Exam Present: warm. Absent: rash - Detailed Eye Exam Eyelids: Bilateral normal inspection Results Labs on day of discharge: Labs from last 24 hours 04/14/20 04/14/20 04/14/20 06:08 05:12 04:02 POC Glucose 182 H 180 H Triglycerides 2341 H Cholesterol 278 H LDL Cholesterol Direct < 30.00 L HDL Cholesterol 22 L Cholesterol/HDL Ratio 12.6 H 04/14/20 04/14/20 04/13/20 02:12 00:15 22:17 POC Glucose 209 H 245 H 233 H Triglycerides Cholesterol LDL Cholesterol Direct HDL Cholesterol Cholesterol/HDL
--- NOTE | 2020-04-14 08:13 | HMH.ACPN ---
Internal Medicine - PN: Subj *Date: 04/14/20 *Time: 08:13 Exam Vital signs and Labs for Last 24 Hours: Temp Pulse Resp BP Pulse Ox 98.1 F 62 16 115/82 95 04/14/20 07:58 04/14/20 06:00 04/14/20 06:00 04/14/20 06:00 04/14/20 07:55 Laboratory Results - last 24 hr 04/13/20 08:29: POC Glucose 211 H 04/13/20 10:08: POC Glucose 223 H 04/13/20 12:00: POC Glucose 201 H 04/13/20 14:14: POC Glucose 222 H 04/13/20 16:05: POC Glucose 206 H 04/13/20 17:35: Triglycerides 2302 H, Cholesterol 294 H, LDL Cholesterol Direct 33.44 L, HDL Cholesterol 24 L, Cholesterol/HDL Ratio 12.3 H 04/13/20 17:55: POC Glucose 281 H 04/13/20 19:58: POC Glucose 269 H 04/13/20 22:17: POC Glucose 233 H 04/14/20 00:15: POC Glucose 245 H 04/14/20 02:12: POC Glucose 209 H 04/14/20 04:02: POC Glucose 180 H 04/14/20 05:12: Triglycerides 2341 H, Cholesterol 278 H, LDL Cholesterol Direct < 30.00 L, HDL Cholesterol 22 L, Cholesterol/HDL Ratio 12.6 H 04/14/20 06:08: POC Glucose 182 H I & O for Last 24 hours: Intake & Output 04/11/20 04/12/20 04/13/20 04/14/20 23:59 23:59 23:59 23:59 Intake Total 5026 / 5026 6334 / 6334 6482 / 6482 326 / 3266 Output Total 850 / 850 502 / 502 Balance 5026 / 5026 5484 / 5484 5980 / 5980 3266 / 3266 Weight 100 kg 101.264 kg 101.264 kg 101.803 kg Assessment and Plan (1) Acute pancreatitis Current visit: Yes Status: Resolved Qualifiers: Pancreatitis type: other Category: Medical Code(s): K85.90 - Acute pancreatitis without necrosis or infection, unspecified (2) Hypertriglyceridemia Current visit: Yes Status: Chronic Category: Medical Code(s): E78.1 - Pure hyperglyceridemia (3) Hypertension Current visit: Yes Status: Chronic Qualifiers: Hypertension type: essential hypertension Qualified Code(s): I10 - Essential (primary) hypertension Category: Medical Code(s): I10 - Essential (primary) hypertension (4) Type 2 diabetes mellitus Current visit: Yes Status: Chronic Qualifiers: Diabetes mellitus assisted insulin use: without termite technician use Diabetes mellitus complication status: without complication Qualified Code(s): E11.9 - Type 2 diabetes mellitus without complications Category: Medical Code(s): E11.9 - Type 2 diabetes mellitus without complications (5) Hepatitis Current visit: Yes Status: Acute Category: Medical Code(s): K75.9 - Inflammatory liver disease, unspecified (6) C. difficile colitis Current visit: Yes Status: Acute Category: Medical Code(s): A04.72 - Enterocolitis due to Clostridium difficile, not specified as recurrent The patient's infection will respond to the chosen ABx?: Yes Is the patient receiving the right drug, dose, and route?: Yes Could a more targeted ABx be ordered?: No (4 MORE DAYS UPON DISCHARGE OF PO VANC)
[2020-04-14 08:25] LABS: POC Glucose,Bedside 237 (70-110)
--- NOTE | 2020-04-14 08:36 | HMH.PHAINT ---
DISCHARGE COUNSELING COMPLETED.
== END 2020-04-14 09:20 | disposition home or self-care (01) | DRG 642 ==
LOC: ER 09:45 → 2ND 14:58
PROVIDERS: Admitting Provider Internal Medicine Adolescent Medicine; Emergency Provider Family Medicine; PCP Internal Medicine Adolescent Medicine; Visit Provider Internal Medicine Adolescent Medicine
DX: K85.90 Acute pancreatitis without necrosis or infection, unspecified (principal); A04.72 Enterocolitis due to Clostridium difficile, not specified as recurrent; E11.9 Type 2 diabetes mellitus without complications; Z79.4 Long term (current) use of insulin; K75.9 Inflammatory liver disease, unspecified; I10 Essential (primary) hypertension; E78.1 Pure hyperglyceridemia; Z79.899 Other long term (current) drug therapy
CPT/HCPCS: 36415; 74176; 76705; 80048; 80053; 80061; 82150; 82962; 83036; 83690; 83722; 83735; 84100; 85025; 87507; 96365; 96375; 99284; J2405; J3370

== ENCOUNTER → 2020-08-25 17:29 | Outpatient (CLI) | payer BC, SELFPAY ==
[2020-08-25 18:09] LABS: Basophils # 0.1 K/mm3 (0-0.2); Basophils % 0.9 % (0.1-2.0); Eosinophils # 0.2 K/mm3 (0.0-0.4); Eosinophils % 1.5 % (0.1-12.0); Hematocrit 46.7 % (42.0-52.0); Lymphocytes # 2.6 K/mm3 (0.7-4.5); Lymphocytes % 23.4 % (10-50); Mean Corpuscular HGB Conc 34.3 g/dL (31.8-35.4); Mean Corpuscular Volume 84.4 fl (80-94); Monocytes # 0.6 K/mm3 (0.1-1.0); Monocytes % 5.3 % (1.7-9.3); Neutrophils # 7.6 K/mm3 (1.8-7.8); Neutrophils % 68.9 % (37.0-80.0); Platelet Count 274 K/mm3 (142-424); Red Blood Count 5.53 M/mm3 (4.60-6.20); White Blood Count 11.1 K/mm3 (4.8-10.8)
[2020-08-25 19:15] LABS: Chloride 101 mmol/L (98-107); Sodium 139 mmol/L (136-145)
[2020-08-25 19:16] LABS: Potassium 4.8 mmoL/L (3.5-5.1)
[2020-08-25 19:18] LABS: Alanine Aminotransferase 21 U/L (12-78); Alkaline Phosphatase 78 U/L (38-126); Amylase 48 U/L (30-110); Anion Gap 15.8 mEq/L (5-15); Aspartate Amino Transferase 24 U/L (17-59); Bilirubin,Total 0.5 mg/dl (0.2-1.3); Blood Urea Nitrogen 22 mg/dl (9-20); Carbon Dioxide 27 mmol/L (22.0-30.0); Estimated Glomerular Filt Rate 66 ml/min (>60); GFR (African American) 80 ML/MIN (>60)
[2020-08-25 19:19] LABS: Albumin Level 4.4 g/dl (3.5-5.0); Albumin/Globulin Ratio 1.4 (1.1-1.8); Calcium 11.9 mg/dl (8.4-10.2); Globulin 3.1 g/dL (1.3-3.2); Glucose 169 mg/dl (74-100); Lipase 165 U/L (23-300); Total Protein,Serum 7.5 g/dl (6.3-8.2)
[2020-08-25 19:37] LABS: Triglycerides 931 mg/dl (30-150)
== END ==
PROVIDERS: Visit Provider Nurse Practitioner Family
DX: K85.90 Acute pancreatitis without necrosis or infection, unspecified (principal); E11.9 Type 2 diabetes mellitus without complications; Z79.4 Long term (current) use of insulin
CPT/HCPCS: 36415; 80053; 82150; 83036; 83690; 84478; 85025

== ENCOUNTER 2021-01-01 00:14 | Inpatient (IN) | payer BC, SELFPAY ==
[2021-01-01] VITALS (10 sets, daily range): BP systolic 124–170; BP diastolic 65–92; PULSE 74–99; RESP 14–20; TEMP 36.7–37.5; O2SAT 90–99; BMI 35.7; BMI 37.0; BMI 36.7
--- NOTE | 2021-01-01 00:39 | CT_ITS ---
PROCEDURE: CT ABDOMEN PELVIS W CON CLINICAL INDICATION: Abd pain Mid epigastric pain, history of pancreatitis COMPARISON: CT CT ABDOMEN PELVIS WO CON from 04/10/2020 TECHNIQUE: IV Contrast: 75ML Isovue 370 Oral Contrast None Axial images obtained with sagittal and coronal reformats. All CT scans at the facility use one or more dose reduction, viz: automated exposure control, ma/kV adjustment per patient size (including targeted exams where dose is matched to indication, i.e. head), or iterative reconstruction technique. FINDINGS: LOWER THORAX: No acute finding ABDOMEN & PELVIS: The liver and spleen are enlarged. The liver measures 29 cm transverse in the spleen measures 16 cm cephalad caudad. The adrenal glands and kidneys have an unremarkable appearance. There is some heterogeneous density around the head of the pancreas inferiorly. Fluid is present in around the head of the pancreas and the duodenal bulb and descending portion of the duodenum. There are few small peripancreatic lymph nodes. No gas is apparent within the collection or within the pancreatic head. These findings may either be related to acute pancreatitis and/or duodenitis. I so density is present in the pancreatic body/tail junction measuring 7 mm. No definite evidence of pancreatic necrosis. Prior cholecystectomy. No intestinal obstruction or free air. No evidence of appendicitis. There are some fluid-filled loops of small bowel which are nondistended. No pelvic mass or abnormal fluid collection apparent. No acute bony anomaly. IMPRESSION: 1. Acute pancreatitis and or duodenitis with a moderate amount of stranding and fluid in the pancreaticoduodenal groove 2. Hepatosplenomegaly 3. 7 mm low-dense lesion in the pancreatic body/tail possibly due to an IPMN. Convalescent MRI with pancreatic protocol may provide further evaluation. Dictated by: Flakito Vasquez MD 01/01/2021 06:09 Flakito Vasquez MD in [place] 01/01/2021 06:09
[2021-01-01 00:50] LABS: Basophils # 0.1 K/mm3 (0-0.2); Basophils % 0.8 % (0.1-2.0); Eosinophils # 0.2 K/mm3 (0.0-0.4); Eosinophils % 1.5 % (0.1-12.0); Lymphocytes # 2.8 K/mm3 (0.7-4.5); Lymphocytes % 22.3 % (10-50); Mean Corpuscular HGB Conc 39.1 g/dL (31.8-35.4); Mean Corpuscular Hemoglobin 33.2 pg (27.0-31.2); Mean Corpuscular Volume 84.9 fl (80-94); Mean Platelet Volume 9.6 fl (7.4-10.4); Monocytes # 0.5 K/mm3 (0.1-1.0); Neutrophils # 8.9 K/mm3 (1.8-7.8); Neutrophils % 71.3 % (37.0-80.0); Platelet Count 153 K/mm3 (142-424); Red Blood Count 5.65 M/mm3 (4.60-6.20); Red Cell Distribution Width 14.4 % (11.5-17.5); White Blood Count 12.5 K/mm3 (4.8-10.8)
[2021-01-01 00:53] LABS: Chloride 104 mmol/L (98-107); Potassium 4.6 mmoL/L (3.5-5.1); Sodium 136 mmol/L (136-145)
[2021-01-01 00:55] LABS: Amylase 177 U/L (30-110); Blood Urea Nitrogen 18 mg/dl (9-20); Creatinine Clearance Estimated 100 mL/min (50-200); Estimated Glomerular Filt Rate 60 ml/min (>60); GFR (African American) 73 ML/MIN (>60)
[2021-01-01 00:56] LABS: Alanine Aminotransferase 30 U/L (12-78); Albumin Level 4.7 g/dl (3.5-5.0); Albumin/Globulin Ratio 1.3 (1.1-1.8); Alkaline Phosphatase 88 U/L (38-126); Anion Gap 14.6 mEq/L (5-15); Aspartate Amino Transferase 48 U/L (17-59); Bilirubin,Total 1.2 mg/dl (0.2-1.3); Calcium 10.5 mg/dl (8.4-10.2); Carbon Dioxide 22 mmol/L (22.0-30.0); Globulin 3.5 g/dL (1.3-3.2); Glucose 198 mg/dl (74-100); Total Protein,Serum 8.2 g/dl (6.3-8.2)
[2021-01-01 01:02] LABS: C-Reactive Protein 9.1 mg/L (0-4)
[2021-01-01 01:06] LABS: Lipase 2206 U/L (23-300)
[2021-01-01 01:25] LABS: Hemoglobin 18.9 g/dL (14.1-18.0)
[2021-01-01 01:31] LABS: Erythrocyte Sedimentation Rate 2 mm/hr (0-15)
--- NOTE | 2021-01-01 01:32 | HMH.EDNVD ---
ED Disposition Clinical Impression: Pancreatitis, acute Qualifiers: Pancreatitis type: unspecified pancreatitis type Acute pancreatitis complication: no infection or necrosis Qualified Code(s): K85.90 - Acute pancreatitis without necrosis or infection, unspecified Disposition: Admitted As Inpatient Condition on Discharge: Serious - Critical Care Critical Care Time: No Attestation: On 01/01/21, the high probability of a clinically significant, sudden or life threatening deterioration of the following system(s) required my full and direct attention, intervention and personal management. The time I documented below is in addition to time spent performing reported procedures but includes the following listed in this critical care notation. Medical Decision Making - Medical Records Medical records reviewed: Yes: I reviewed the patient's medical records. - Raymond Inquiry Pt receiving controlled substance: No Vital Signs: 01/01/21 00:25 Temperature 98.3 F Temperature Source Oral Pulse Rate [Right] 74 Respiratory Rate 18 Blood Pressure [Right Arm] 141/92 H Blood Pressure Mean [Right Arm] 108 Blood Pressure Source [Right Arm] Automatic Cuff 02 Sat by Pulse Oximetry 99 Oxygen Delivery Method Room Air - Lab Data Lab results reviewed: Yes: I reviewed the patient's lab results. Lab Results 01/01/21 00:41: WBC 12.5 H, RBC 5.65, Hgb 18.9 H*, Hct 48.0, MCV 84.9, MCH 33.2 H, MCHC 39.1 H, RDW 14.4, Plt Count 153, MPV 9.6, Neut % (Auto) 71.3, Lymph % (Auto) 22.3, [place] % (Auto) 4.0, Eos % (Auto) 1.5, Baso % (Auto) 0.8, Neut # (Auto) 8.9 H, Lymph # (Auto) 2.8, [place] # (Auto) 0.5, Eos # (Auto) 0.2, Baso # (Auto) 0.1 01/01/21 00:41: Sodium 136, Potassium 4.6, Chloride 104, Carbon Dioxide 22, Anion Gap 14.6, BUN 18, Creatinine 1.30 H, Estimated Creat Clear 100, Estimated GFR 60, Est GFR ( Amer) 73, Glucose 198 H, Calcium 10.5 H, Total Bilirubin 1.2, AST 48, ALT 30, Alkaline Phosphatase 88, C-Reactive Protein 9.1 H, Total Protein 8.2, Albumin 4.7, Globulin 3.5 H, Albumin/Globulin Ratio 1.3, Amylase 177 H, Lipase 2206 H 01/01/21 00:41: ESR 2 01/01/21 00:41: Procalcitonin 0.105 Result diagrams: 01/01/21 00:41 01/01/21 00:41 Orders (Tests/Meds): ED MEDICATIONS Generic Name Dose Route Start Last Admin Trade Name Freq PRN Reason Stop Dose Admin Sodium Chloride 1,000 mls @ 999 mls/hr 01/01/21 00:45 01/01/21 00:50 Sod Chlor 0.9% 1000ml Bag IV 01/01/21 01:45 999 mls/hr .Q1H1M LOREE Administration Discontinued Medications Generic Name Dose Route Start Last Admin Trade Name Freq PRN Reason Stop Dose Admin Hydromorphone HCl 1 mg 01/01/21 01:47 01/01/21 01:49 Hydromorphone 2mg/Ml Syringe IV 01/01/21 01:48 1 mg ONCE ONE Administration Morphine Sulfate 4 mg 01/01/21 00:41 01/01/21 00:49 Morphine 4mg/Ml Syringe IV 01/01/21 00:42 4 mg ONCE ONE Administration Ondansetron HCl 4 mg 01/01/21 00:39 01/01/21 00:49 Ondansetron 4mg/2ml Vial IV 01/01/21 00:40 4 mg ONCE ONE Administration ORDERS Category Date Time Status CT abdomen pelvis w con Stat Cat Scan 01/01/21 00:39 Ordered Full Resp Panel w/COVID ([facility]) Routine Lab 01/01/21 02:20 Received Urinalysis and Microscopic Stat Lab 01/01/21 00:39 Ordered - CT Data CT Scan: Abdomen, Pelvis Time Received: 02:[address] Reviewed: Yes: I have viewed the radiologist's interpretation Preliminary Findings: Abnormal - Physician Consults Physician Consulted: alison Reason -: Admission Medical Decision Narrative: acute pancreatitis with elevated lipase and abn ct Nausea/Vomiting/Diarrhea HPI - General Chief complaint: Abdominal Pain Stated complaint: poss pancreatitis Time Seen by Provider: 01/01/21 00:30 Mode of Arrival: Ambulatory Source of Information: Patient, Medical Record Limitations: No Limitations Description of Symptoms (Recalled from ER Triage Doc. by RN): Pt has hx od pancreatitis and is having upper ABD pain
[2021-01-01 01:40] LABS: Procalcitonin 0.105 ng/mL (0.0-2.0)
[2021-01-01 02:27] LABS: Adenovirus,PCR Not Detected (NotDetected); Bordetella Pertussis Not Detected (NotDetected); Chlamydophila Pneumoniae, PCR Not Detected (NotDetected); Coronavirus 19, PCR Not Detected (NotDetected); Coronavirus 229E Not Detected (NotDetected); Coronavirus NL63 Not Detected (NotDetected); Coronavirus OC43 Not Detected (NotDetected); Coronovirus HKU1,PCR Not Detected (NotDetected); Human Metapneumovirus Not Detected (NotDetected); Influenza A, PCR Not Detected (NotDetected); Influenza AH1, 2009 Not Detected (NotDetected); Influenza AH1, PCR Not Detected (NotDetected); Influenza AH3,PCR Not Detected (NotDetected); Influenza B, PCR Not Detected (NotDetected); Mycoplasma Pneumoniae, PCR Not Detected (NotDetected); Parainfluenza 1, PCR Not Detected (NotDetected); Parainfluenza 2, PCR Not Detected (NotDetected); Parainfluenza 3, PCR Not Detected (NotDetected); Parainfluenza 4, PCR Not Detected (NotDetected); Respiratory Syncytial Virus Not Detected (NotDetected); Rhinovirus/Enterovirus Not Detected (NotDetected)
--- NOTE | 2021-01-01 02:52 | PC.NURSE ---
patient up to floor via wheelchair.
--- NOTE | 2021-01-01 03:07 | PC.NURSE ---
patient arrived on floor at 0300 by wheelchair showing no s/s of acute distress noted at this time.
[2021-01-01 05:54] LABS: POC Glucose,Bedside 176 (70-110)
[2021-01-01 06:35] LABS: Microscopic, Urine URINE MICROSCOPIC (MICROSCOPIC)
[2021-01-01 07:00] LABS: Appearance,Urine CLEAR (Clear); Bilirubin,Urine Negative (Negative); Blood, Urine Negative (Negative); Color,Urine YELLOW (Yellow); Glucose,Urine (UA) 3+ (Negative); Ketones,Urine TRACE (Negative); Leukocyte Esterase,Urine Negative (Negative); Nitrate,Urine Negative (Negative); Protein,Urine Negative (Negative); Urobilinogen,Urine 0.2 EU/dl (0.2)
[2021-01-01 07:01] LABS: Basophils # 0.1 K/mm3 (0-0.2); Basophils % 0.6 % (0.1-2.0); Eosinophils # 0.2 K/mm3 (0.0-0.4); Eosinophils % 1.2 % (0.1-12.0); Hematocrit 46.4 % (42.0-52.0); Hemoglobin 17.5 g/dL (14.1-18.0); Lymphocytes # 1.8 K/mm3 (0.7-4.5); Mean Corpuscular HGB Conc 37.7 g/dL (31.8-35.4); Mean Corpuscular Hemoglobin 32.2 pg (27.0-31.2); Mean Corpuscular Volume 85.6 fl (80-94); Mean Platelet Volume 9.9 fl (7.4-10.4); Monocytes # 0.7 K/mm3 (0.1-1.0); Monocytes % 4.8 % (1.7-9.3); Neutrophils # 11.1 K/mm3 (1.8-7.8); Neutrophils % 80.5 % (37.0-80.0); Platelet Count 150 K/mm3 (142-424); Red Blood Count 5.42 M/mm3 (4.60-6.20); Red Cell Distribution Width 14.5 % (11.5-17.5); White Blood Count 13.9 K/mm3 (4.8-10.8)
--- NOTE | 2021-01-01 07:01 | PC.NURSE ---
Patient VS WNL throughout shift. Shows no s/s of acute distress noted at this time. Call light within reach, bed at lowest level for safety. Will continue to monitor.
[2021-01-01 07:08] LABS: Anion Gap 18.2 mEq/L (5-15); Blood Urea Nitrogen 14 mg/dl (9-20); Calcium 9.8 mg/dl (8.4-10.2); Carbon Dioxide 18 mmol/L (22.0-30.0); Chloride 106 mmol/L (98-107); Creatinine Clearance Estimated 134 mL/min (50-200); Estimated Glomerular Filt Rate 81 ml/min (>60); GFR (African American) 98 ML/MIN (>60); Glucose 182 mg/dl (74-100); HDL Cholesterol 13 mg/dl (40-60); Lipase 1091 U/L (23-300); Potassium 5.2 mmoL/L (3.5-5.1); Sodium 137 mmol/L (136-145)
[2021-01-01 07:18] LABS: Chol/HDL Ratio 31.5 (1-3.5); Cholesterol 409 mg/dl (140-200)
[2021-01-01 07:19] LABS: Direct LDL Cholesterol 57.42 mg/dL (100-129)
--- NOTE | 2021-01-01 07:54 | HMH.HP ---
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 Patient has had abdominal pain for 12 hours, without response to OTC pain medications and clear liquids, came to the ER, lipase over thousand, significant pain. CT showed pancreatic inflammation. Admitted to hospital for pain control, IV fluids and further testing. [facility] History I have reviewed the patient's past medical history: Yes Medical History: Reports:: Diabetes Mellitus Type 2, Hyperlipidemia, Hypertension Denies:: Cancer, MRSA *Have you ever received a pneumonia vaccine?: Yes *Have you received a flu vaccine this season?: Yes Other Surgeries: Yes: Cholecystectomy, Other Amputation: No Fractures: No - *Social History Last grade of school completed: Advanced degree Smoking Status: Never smoker Alcohol Intake: never Substance Use Type: denies use *Occupational Status:: employed Housing: house Household Members: spouse, children *Travel in the last 8 weeks: None Family Hx:: Cancer, Diabetes Review of Systems - Review of Systems Review of systems:: pertinent systems reviewed and negative unless documented below - *Neurologic Denies localized weakness, Denies headache(s), Denies seizure-like activity Meds Home Medications Medication Instructions Recorded Confirmed Type Cetirizine HCl 10 mg PO DAILY 04/11/20 01/01/21 History Fenofibrate 160 mg PO DAILY #90 tab 04/14/20 01/01/21 Rx Lutz-3 Acid Ethyl Esters [Lovaza] 2 gm PO BID #120 cap 04/14/20 01/01/21 Rx Insulin Glargine,Hum.rec.anlog 15 units SQ HS 01/01/21 01/01/21 History [Lantus Solostar 100 Units/mL 3mL flexpen] Insulin Lispro 0 unit SQ AC 01/01/21 01/01/21 History lisinopriL [Lisinopril 5mg 5 mg PO DAILY 01/01/21 01/01/21 History Tablet] Allergies Allergy/AdvReac Type Severity Reaction Status Date / Time atorvastatin [From Lipitor] Allergy Verified 01/01/21 03:22 niacin Allergy Verified 01/01/21 03:22 Exam Vital signs and Labs for Last 24 Hours: Temp Pulse Resp BP Pulse Ox 98.0 F 99 H 18 170/91 H 99 01/01/21 03:00 01/01/21 03:00 01/01/21 03:00 01/01/21 03:00 01/01/21 03:00 Laboratory Results - last 24 hr 01/01/21 00:41: WBC 12.5 H, RBC 5.65, Hgb 18.9 H*, Hct 48.0, MCV 84.9, MCH 33.2 H, MCHC 39.1 H, RDW 14.4, Plt Count 153, MPV 9.6, Neut % (Auto) 71.3, Lymph % (Auto) 22.3, [place] % (Auto) 4.0, Eos % (Auto) 1.5, Baso % (Auto) 0.8, Neut # (Auto) 8.9 H, Lymph # (Auto) 2.8, [place] # (Auto) 0.5, Eos # (Auto) 0.2, Baso # (Auto) 0.1 01/01/21 00:41: Sodium 136, Potassium 4.6, Chloride 104, Carbon Dioxide 22, Anion Gap 14.6, BUN 18, Creatinine 1.30 H, Estimated Creat Clear 100, Estimated GFR 60, Est GFR ( Amer) 73, Glucose 198 H, Calcium 10.5 H, Total Bilirubin 1.2, AST 48, ALT 30, Alkaline Phosphatase 88, C-Reactive Protein 9.1 H, Total Protein 8.2, Albumin 4.7, Globulin 3.5 H, Albumin/Globulin Ratio 1.3, Amylase 177 H, Lipase 2206 H 01/01/21 00:41: ESR 2 01/01/21 00:41: Procalcitonin 0.105 01/01/21 02:20: Chlamy pneumoniae PCR Not detected, Adenovirus (PCR) Not detected, B. pertussis DNA (PCR) Not detected, Coronavirus OC43 (PCR) Not detected, Coronavirus HKU1 (PCR) Not detected, Coronavirus 229E (PCR) Not detected, SARS-CoV-2 (PCR) Not detected, Coronavirus NL63 (PCR) Not detected, Human Metapneumovir PCR Not detected, Influenza A (H1) PCR Not detected, Influ A (H1N1/09) PCR Not detected, Influenza A (H3) PCR Not detected, Influenza Type A (PCR) Not detected, Influenza Type B (PCR) Not detected, M. pneumoniae (PCR) Not detected, Parainfluenza 1 (PCR) Not detected, Parainfluenza 2 (PCR) Not detected, Parainfluenza 3 (PCR) Not detected, Parainfluenza 4 (PCR) Not detected, RSV (PCR) Not detected, Entero/Rhino (PCR) Not detected 01/01/21 05:27: POC Glucose 176 H 01/01/21 06:00: Urine Color Yellow, Urine Appear
--- NOTE | 2021-01-01 08:13 | HMH.PHAVTE ---
[facility] Pharm[facility] VTE Monitoring - Patient Demographics Admission date: 01/01/21 Report Date: 01/01/21 Time: 08:14 Allergies/Adverse Reactions: Patient Allergies atorvastatin [From Lipitor] Allergy (Verified 01/01/21 03:22) niacin Allergy (Verified 01/01/21 03:22) Height: 1.65 m Weight: 100.868 kg Patient Problems: Current Active Problems Type 2 diabetes mellitus (Chronic) Hypertriglyceridemia (Chronic) Pancreatitis, acute (Acute) - VTE Risk Labs: VTE Related Lab Results Hgb 17.5 g/dL (14.1-18.0) 01/01/21 06:44 Hct 46.4 % (42.0-52.0) 01/01/21 06:44 Plt Count 150 K/mm3 (142-424) 01/01/21 06:44 BUN 14 mg/dl (9-20) 01/01/21 06:44 Creatinine 1.00 mg/dl (0.66-1.25) D 01/01/21 06:44 Estimated Creat Clear 134 mL/min (50-200) 01/01/21 06:44 Clinical Trial Participant: No - Prophylaxis VTE Prophylaxis Ordered?: Yes Types of VTE Prophylaxis: TEDS Knee High
[2021-01-01 08:18] LABS: WBC,Urine Occasional #/hpf (0-3)
[2021-01-01 09:16] LABS: Hemoglobin A1C 9.8 % (4.0-6.0)
[2021-01-01 11:26] LABS: POC Glucose,Bedside 188 (70-110)
[2021-01-01 16:12] LABS: POC Glucose,Bedside 161 (70-110)
[2021-01-01 18:32] LABS: Chloride 105 mmol/L (98-107); Potassium 4.4 mmoL/L (3.5-5.1); Sodium 138 mmol/L (136-145)
[2021-01-01 18:35] LABS: Anion Gap 12.4 mEq/L (5-15); Blood Urea Nitrogen 13 mg/dl (9-20); Carbon Dioxide 25 mmol/L (22.0-30.0); Creatinine Clearance Estimated 111 mL/min (50-200); Estimated Glomerular Filt Rate 66 ml/min (>60); GFR (African American) 80 ML/MIN (>60)
[2021-01-01 18:36] LABS: Calcium 9.6 mg/dl (8.4-10.2); Glucose 149 mg/dl (74-100)
--- NOTE | 2021-01-01 20:39 | PC.NURSE ---
Pt is alert and oriented x 4. RR even and unlabored. Has been moved to step down per Dr. Talley and started on an insulin drip. Have given report on pt to Kay Peck RN. VSS. Cb in reach. New IV started to L AC. Lungs cta, bs x 4. PRN pain meds given per dec. Pt is able to ambulate ad krunal.
--- NOTE | 2021-01-01 20:54 | PC.NURSE ---
Did get order for prn tylenol and have sent to [facility] and also an order for pt to have ice chips per Dr. Nelson.
[2021-01-01 22:19] LABS: Chloride 107 mmol/L (98-107); Sodium 136 mmol/L (136-145)
[2021-01-01 22:22] LABS: Blood Urea Nitrogen 13 mg/dl (9-20); Carbon Dioxide 21 mmol/L (22.0-30.0); Creatinine Clearance Estimated 133 mL/min (50-200); Estimated Glomerular Filt Rate 81 ml/min (>60); GFR (African American) 98 ML/MIN (>60)
[2021-01-01 22:23] LABS: Calcium 9.5 mg/dl (8.4-10.2); Glucose 156 mg/dl (74-100)
[2021-01-02] VITALS (17 sets, daily range): BP systolic 121–155; BP diastolic 72–97; PULSE 76–104; RESP 14–20; TEMP 36.7–38.8; O2SAT 89–98; BMI 37.5
--- NOTE | 2021-01-02 02:13 | PC.NURSE ---
Addendum entered by Kay Peck RN 01/02/21 06:00: 1800 BLOOD SUGAR 122. DRIP REMAINS @ 4 UNITS/HR. D5NS INCREASED TO 200 ML'S/HR. Original Note: PT IS RESTING IN BED. RECEIVING PAIN MEDICATION FOR DISCOMFORT. INSULIN DRIP HAS BEEN UNCHANGED T/O THE SHIFT (DRIP @4 UNITS/HR) D5NS WAS INCREASED TO 200 ML/HR AT 0000 B/C PT'S BLOOD SUGAR WAS 139. PT HAS BEEN USING THE URINAL TO VOID THIS SHIFT. LUNG SOUNDS CLEAR. ABDOMEN SOFT/TENDERNESS NOTED TO THE RUQ. PT STATED HIS LAST BOWEL MOVEMENT WAS YESTERDAY. NSR ON THE MONITOR. WHEN PT IS ASLEEP O2 SATURATION WILL DROP TO 88% ON ROOM AIR. WHILE AWAKE ON ROOM AIR O2 SATURATION 94-96%. 1 L NC WAS APPLIED ON PT WHILE SLEEPING. 0200 BLOOD SUGAR WAS 156 ( D5NS DECREASED BACK TO 150ML/HR ) VSS. WILL CONTINUE TO MONITOR.
[2021-01-02 02:23] LABS: Chloride 106 mmol/L (98-107); Potassium 3.9 mmoL/L (3.5-5.1); Sodium 135 mmol/L (136-145)
[2021-01-02 02:26] LABS: Anion Gap 9.9 mEq/L (5-15); Blood Urea Nitrogen 14 mg/dl (9-20); Carbon Dioxide 23 mmol/L (22.0-30.0); Creatinine Clearance Estimated 121 mL/min (50-200); Estimated Glomerular Filt Rate 73 ml/min (>60); GFR (African American) 88 ML/MIN (>60)
[2021-01-02 02:27] LABS: Calcium 9.3 mg/dl (8.4-10.2); Glucose 151 mg/dl (74-100)
[2021-01-02 05:13] LABS: POC Glucose,Bedside 154 (70-110)
[2021-01-02 05:13] LABS: POC Glucose,Bedside 165 (70-110)
[2021-01-02 05:13] LABS: POC Glucose,Bedside 149 (70-110)
[2021-01-02 05:13] LABS: POC Glucose,Bedside 137 (70-110)
[2021-01-02 05:13] LABS: POC Glucose,Bedside 156 (70-110)
[2021-01-02 06:02] LABS: POC Glucose,Bedside 122 (70-110)
[2021-01-02 06:16] LABS: Basophils # 0.1 K/mm3 (0-0.2); Basophils % 0.6 % (0.1-2.0); Eosinophils # 0.1 K/mm3 (0.0-0.4); Monocytes # 0.6 K/mm3 (0.1-1.0)
[2021-01-02 06:18] LABS: Chol/HDL Ratio 14.1 (1-3.5); Cholesterol 311 mg/dl (140-200); HDL Cholesterol 22 mg/dl (40-60); Lipase 256 U/L (23-300)
[2021-01-02 06:22] LABS: Alanine Aminotransferase 64 U/L (12-78); Albumin Level 3.7 g/dl (3.5-5.0); Albumin/Globulin Ratio 1.2 (1.1-1.8); Alkaline Phosphatase 68 U/L (38-126); Anion Gap 10.7 mEq/L (5-15); Aspartate Amino Transferase 61 U/L (17-59); Bilirubin,Total 1.6 mg/dl (0.2-1.3); Blood Urea Nitrogen 14 mg/dl (9-20); Calcium 9.3 mg/dl (8.4-10.2); Carbon Dioxide 22 mmol/L (22.0-30.0); Chloride 105 mmol/L (98-107); Creatinine Clearance Estimated 111 mL/min (50-200); Estimated Glomerular Filt Rate 66 ml/min (>60); GFR (African American) 80 ML/MIN (>60); Globulin 3.1 g/dL (1.3-3.2); Glucose 126 mg/dl (74-100); Potassium 3.7 mmoL/L (3.5-5.1); Sodium 134 mmol/L (136-145); Total Protein,Serum 6.8 g/dl (6.3-8.2)
--- NOTE | 2021-01-02 06:30 | HMH.ACPN2 ---
Internal Medicine - PN: Subj *Date: 01/02/21 *Time: 13:16 Interval history: Mr. Fitch did well overnight. Required some oxygen after getting pain meds due to mild desats after pain meds. Patient had elevated temperature overnight. Denies any nausea or vomiting. Still having some abdominal pain that responds well to Dilaudid. Interested in starting clear liquid diet this morning. Tolerated insulin drip and glucose for hypertriglyceridemia with improvement in level on labs this morning. On admission his levels were too high to count, this morning his triglycerides are 1800. Having adequate urine output, color has changed somewhat to orange this morning. Denies chest pain, palpitations, headache or confusion Exam Vital signs and Labs for Last 24 Hours: Temp Pulse Resp BP Pulse Ox 100.3 F H 92 H 20 142/91 H 97 01/02/21 03:31 01/02/21 06:00 01/02/21 06:00 01/02/21 06:00 01/02/21 06:00 Laboratory Results - last 24 hr 01/01/21 06:00: Urine Color Yellow, Urine Appearance Clear, Urine pH 5.0, Ur Specific [place] 1.020, Urine Protein Negative, Urine Glucose (UA) 3+, Urine Ketones Trace, Urine Blood Negative, Urine Nitrate Negative, Urine Bilirubin Negative, Urine Urobilinogen 0.2, Ur Leukocyte Esterase Negative, Urine RBC None, Urine WBC Occasional, Ur Squamous Epith Cells None, Urine Bacteria None 01/01/21 06:44: WBC 13.9 H, RBC 5.42, Hgb 17.5, Hct 46.4, MCV 85.6, MCH 32.2 H, MCHC 37.7 H, RDW 14.5, Plt Count 150, MPV 9.9, Neut % (Auto) 80.5 H, Lymph % (Auto) 13.0, [place] % (Auto) 4.8, Eos % (Auto) 1.2, Baso % (Auto) 0.6, Neut # (Auto) 11.1 H, Lymph # (Auto) 1.8, [place] # (Auto) 0.7, Eos # (Auto) 0.2, Baso # (Auto) 0.1 01/01/21 06:44: Sodium 137, Potassium 5.2 H, Chloride 106, Carbon Dioxide 18 L, Anion Gap 18.2 H, BUN 14, Creatinine 1.00 D, Estimated Creat Clear 134, Estimated GFR 81, Est GFR ( Amer) 98 D, Glucose 182 H, Calcium 9.8, Triglycerides TNP, Cholesterol 409 H, LDL Cholesterol Direct 57.42 L, VLDL Cholesterol TNP, HDL Cholesterol 13 L, Cholesterol/HDL Ratio 31.5 H, Lipase 1091 H 01/01/21 06:44: Hemoglobin A1c 9.8 H 01/01/21 11:18: POC Glucose 188 H 01/01/21 16:05: POC Glucose 161 H 01/01/21 18:15: Sodium 138, Potassium 4.4, Chloride 105, Carbon Dioxide 25 D, Anion Gap 12.4, BUN 13, Creatinine 1.20, Estimated Creat Clear 111, Estimated GFR 66, Est GFR ( Amer) 80, Glucose 149 H, Calcium 9.6 01/01/21 20:49: POC Glucose 165 H 01/01/21 22:10: Sodium 136, Potassium 4.0, Chloride 107, Carbon Dioxide 21 L, Anion Gap 12.0, BUN 13, Creatinine 1.00, Estimated Creat Clear 133, Estimated GFR 81, Est GFR ( Amer) 98 D, Glucose 156 H, Calcium 9.5 01/01/21 22:22: POC Glucose 154 H 01/02/21 00:07: POC Glucose 137 H 01/02/21 02:10: Sodium 135 L, Potassium 3.9, Chloride 106, Carbon Dioxide 23, Anion Gap 9.9, BUN 14, Creatinine 1.10, Estimated Creat Clear 121, Estimated GFR 73, Est GFR ( Amer) 88, Glucose 151 H, Calcium 9.3 01/02/21 02:11: POC Glucose 156 H 01/02/21 03:38: POC Glucose 149 H 01/02/21 05:55: POC Glucose 122 H I & O for Last 24 hours: Intake & Output 12/30/20 12/31/20 01/01/21 01/02/21 23:59 23:59 23:59 23:59 Intake Total 2548 / 2548 1430 / 1430 Output Total 300 / 300 Balance 2548 / 2248 1130 / 1130 Weight 100 kg - Constitutional no acute distress, obese - *Routine HEENT Exam Head: Present: normocephalic Eye: Present: EOMI, PERRL ENT: Present: mucous membranes moist - *Routine Neck Exam Present: supple. Absent: lymphadenopathy - *Routine Respiratory Exam Present: CTA bilaterally - *Routine Cardiovascular Exam Present: RRR - *Routine Abdominal Exam Present: soft, normoactive bowel sounds, tenderness Comments: Across entire upper abdomen, right worse than left - *Routine Extremities Exam Absent: cyanosis, clubbing, edema - *Routine Skin Exam Present: warm. Absent: rash - *Routine Neurological Exam Present: alert, oriented X3 Assessment and Plan (1)
[2021-01-02 06:59] LABS: Direct LDL Cholesterol < 30.00 mg/dL (100-129); Triglycerides 1835 mg/dl (30-150)
[2021-01-02 07:15] LABS: Eosinophils % 0.5 % (0.1-12.0); Hematocrit 43.2 % (42.0-52.0); Lymphocytes % 20.3 % (10-50); Mean Corpuscular HGB Conc 34.4 g/dL (31.8-35.4); Mean Corpuscular Hemoglobin 28.4 pg (27.0-31.2); Mean Corpuscular Volume 82.5 fl (80-94); Monocytes % 6.3 % (1.7-9.3); Neutrophils % 72.2 % (37.0-80.0); Platelet Count 135 K/mm3 (142-424); Red Blood Count 5.23 M/mm3 (4.60-6.20); Red Cell Distribution Width 14.2 % (11.5-17.5)
[2021-01-02 07:22] LABS: White Blood Count 9.7 K/mm3 (4.8-10.8)
[2021-01-02 07:23] LABS: Hemoglobin 14.8 g/dL (14.1-18.0)
[2021-01-02 08:16] LABS: POC Glucose,Bedside 136 (70-110)
--- NOTE | 2021-01-02 09:08 | DIET.NUTRFU ---
Nutritional assessment, IP/consult completed. Pt with chronic hypertriglyceridemia, poorly controlled DM, and associated recurrent pancreatitis. Pt was given in depth diet education and counseling at last admit for pancreatitis 04/12, and strongly encouraged to f/u through outpatient counseling for which he did not. His A1C has risen from an 8 to a 9.8 in this time, TGL remains critically elevated. Pt has also not lost any weight which would be expected with applied dietary changes. He has been recommended to follow a very low fat consistent carbohydrate diet for lowering TGL and managing BG. He states he has been applying some of the nutrition related recommendations made to him, but not all. He states it is hard to change the way he has eaten his whole life. Pt educated/counseled on the risks of his dietary/lifestyle choices and dangers of his condition without adequate dietary intervention. In depth education provided on transitioning to a restricted fat/consistent cho diet that is more plant based. He has been strongly encouraged to f/u through OP counseling, will continue to provide diet education and motivational counseling t/o stay.
--- NOTE | 2021-01-02 10:04 | PC.NURSE ---
fsbs 151 decreased d5ns to 150ml/hr
[2021-01-02 10:40] LABS: POC Glucose,Bedside 151 (70-110)
[2021-01-02 12:00] LABS: POC Glucose,Bedside 205 (70-110)
[2021-01-02 12:24] LABS: POC Glucose,Bedside 187 (70-110)
--- NOTE | 2021-01-02 14:26 | PC.NURSE ---
fsbs 206 per order states to increase 1 unit if greater than 180. insulin drip increased to 5 units/hour
[2021-01-02 14:33] LABS: POC Glucose,Bedside 206 (70-110)
[2021-01-02 16:38] LABS: POC Glucose,Bedside 160 (70-110)
[2021-01-02 16:44] LABS: Chol/HDL Ratio 13.8 (1-3.5); Cholesterol 304 mg/dl (140-200); HDL Cholesterol 22 mg/dl (40-60)
[2021-01-02 16:59] LABS: Direct LDL Cholesterol < 30.00 mg/dL (100-129); Triglycerides 1191 mg/dl (30-150)
[2021-01-02 18:36] LABS: Anion Gap 8.5 mEq/L (5-15); Blood Urea Nitrogen 11 mg/dl (9-20); Calcium 8.9 mg/dl (8.4-10.2); Carbon Dioxide 22 mmol/L (22.0-30.0); Chloride 106 mmol/L (98-107); Creatinine Clearance Estimated 114 mL/min (50-200); Estimated Glomerular Filt Rate 66 ml/min (>60); GFR (African American) 80 ML/MIN (>60); Potassium 3.5 mmoL/L (3.5-5.1); Sodium 133 mmol/L (136-145)
[2021-01-02 18:40] LABS: Glucose 155 mg/dl (74-100)
[2021-01-02 18:40] LABS: POC Glucose,Bedside 157 (70-110)
--- NOTE | 2021-01-02 19:38 | PC.NURSE ---
patient has done okay this shift. tolerating diet well most pain with coughing. has done well on insulin drip and d5ns. rings out as needed. did have a bath per which assisted with making him feel better. has ambulated in room, did have bm. slight fevers and urine noted to be orange. md aware and stated to order a ua with microscopy. vitals have been stable.
[2021-01-02 20:39] LABS: POC Glucose,Bedside 203 (70-110)
[2021-01-02 22:11] LABS: POC Glucose,Bedside 165 (70-110)
[2021-01-03] VITALS (15 sets, daily range): BP systolic 115–144; BP diastolic 60–82; PULSE 65–105; RESP 14–20; TEMP 36.7–38.8; O2SAT 93–99; BMI 39.3
[2021-01-03 00:09] LABS: POC Glucose,Bedside 171 (70-110)
[2021-01-03 02:23] LABS: POC Glucose,Bedside 146 (70-110)
[2021-01-03 04:36] LABS: POC Glucose,Bedside 128 (70-110)
--- NOTE | 2021-01-03 04:36 | PC.NURSE ---
0424: PAGED SHOE COVERER MD, DR. DASILVA, TO NOTIFY HIM THAT PATIENT HAS SPIKED A TEMPERATURE OF 101.8 AND PATIENT ISN'T ON ANY ANTIBIOTICS. ALSO, TO INQUIRE IF HE WOULD LIKE BLOOD CULTURES. AWAITING CALL BACK.
--- NOTE | 2021-01-03 04:43 | PC.NURSE ---
GENERAL REASSESSMENT: PATIENT HAS SLEPT AT INTERVALS THIS SHIFT. HE HAS RAN A LOW GRADE TEMP. THROUGHOUT THE SHIFT BUT HAS SPIKED A TEMP OF 101.8 THIS AM. AWAITING CALL BACK FROM BATTERY STACKER MD TO SEE IF HE WOULD LIKE TO GET BLOOD CULTURES OR START AN ANTIBIOTIC OR DEFER TO PRIMARY MD. PATIENT'S LUNGS REMAIN CTA. ABDOMEN REMAINS TENDER IN RUQ. PATIENT HAS BEEN MEDICATED Q4 HOURS FOR ABDOMINAL PAIN. BS + X4. PATIENT INDEPENDENT, AND TURNS SELF IN BED. PATIENT HAS VOIDED PER URINAL SEVERAL TIMES THIS SHIFT - DARK ANGELINE IN COLOR. PATIENT'S IV SITES REMAIN PATENT. INSULIN GTT INFUSING AT 5UNITS/HR AND D5NS INFUSING AT 150M/HR. PATIENT IS NSR ON TELEMETRY. BP WNL. COOPERATIVE WITH CARE.
--- NOTE | 2021-01-03 06:02 | PC.NURSE ---
0547: Dr. New stated to pass inquiry for blood cultures and antibiotic administration to circular clerk upon AM rounds.
[2021-01-03 06:34] LABS: POC Glucose,Bedside 127 (70-110)
[2021-01-03 07:06] LABS: Alanine Aminotransferase 38 U/L (12-78); Albumin Level 3.3 g/dl (3.5-5.0); Albumin/Globulin Ratio 1.1 (1.1-1.8); Alkaline Phosphatase 67 U/L (38-126); Anion Gap 9.5 mEq/L (5-15); Aspartate Amino Transferase 31 U/L (17-59); Bilirubin,Total 1.3 mg/dl (0.2-1.3); Blood Urea Nitrogen 10 mg/dl (9-20); Calcium 9.1 mg/dl (8.4-10.2); Carbon Dioxide 21 mmol/L (22.0-30.0); Chloride 108 mmol/L (98-107); Chol/HDL Ratio 12.5 (1-3.5); Cholesterol 263 mg/dl (140-200); Creatinine Clearance Estimated 119 mL/min (50-200); Estimated Glomerular Filt Rate 66 ml/min (>60); GFR (African American) 80 ML/MIN (>60); Globulin 2.9 g/dL (1.3-3.2); Glucose 121 mg/dl (74-100); HDL Cholesterol 21 mg/dl (40-60); Magnesium 1.8 mg/dl (1.6-2.3); Potassium 3.5 mmoL/L (3.5-5.1); Sodium 135 mmol/L (136-145); Total Protein,Serum 6.2 g/dl (6.3-8.2)
--- NOTE | 2021-01-03 07:09 | PC.NURSE ---
REPORT GIVEN TO Keaton WISE RN
[2021-01-03 07:14] LABS: Triglycerides 758 mg/dl (30-150)
[2021-01-03 07:28] LABS: Direct LDL Cholesterol < 30.00 mg/dL (100-129)
[2021-01-03 08:00] LABS: Basophils # 0.1 K/mm3 (0-0.2); Basophils % 0.5 % (0.1-2.0); Eosinophils # 0.1 K/mm3 (0.0-0.4); Eosinophils % 1.5 % (0.1-12.0); Hematocrit 39.3 % (42.0-52.0); Hemoglobin 13.1 g/dL (14.1-18.0); Lymphocytes # 1.5 K/mm3 (0.7-4.5); Lymphocytes % 16.7 % (10-50); Mean Corpuscular HGB Conc 33.4 g/dL (31.8-35.4); Mean Corpuscular Hemoglobin 27.8 pg (27.0-31.2); Mean Corpuscular Volume 83.2 fl (80-94); Mean Platelet Volume 11.5 fl (7.4-10.4); Monocytes # 0.5 K/mm3 (0.1-1.0); Monocytes % 5.7 % (1.7-9.3); Neutrophils # 6.6 K/mm3 (1.8-7.8); Neutrophils % 75.6 % (37.0-80.0); Platelet Count 112 K/mm3 (142-424); Red Blood Count 4.72 M/mm3 (4.60-6.20); White Blood Count 8.7 K/mm3 (4.8-10.8)
--- NOTE | 2021-01-03 08:44 | HMH.ACPN2 ---
Internal Medicine - PN: Subj *Date: 01/03/21 *Time: 10:59 Interval history: Hemodynamically stable overnight. Afebrile. No nausea or vomiting. Denies much abdominal pain this morning. Tolerating p.o. intake without much discomfort. Triglycerides have responded appropriately to insulin drip. Stable on room air. No shortness of breath, cough, chest pain, edema, dizziness. Exam Vital signs and Labs for Last 24 Hours: Temp Pulse Resp BP Pulse Ox 98.9 F 94 H 16 115/72 94 L 01/03/21 06:00 01/03/21 07:05 01/03/21 07:05 01/03/21 07:05 01/03/21 07:05 Laboratory Results - last 24 hr 01/02/21 09:55: POC Glucose 151 H 01/02/21 11:16: POC Glucose 205 H 01/02/21 12:17: POC Glucose 187 H 01/02/21 14:24: POC Glucose 206 H 01/02/21 16:29: Triglycerides 1191 H, Cholesterol 304 H, LDL Cholesterol Direct < 30.00 L, HDL Cholesterol 22 L, Cholesterol/HDL Ratio 13.8 H 01/02/21 16:29: POC Glucose 160 H 01/02/21 18:09: Sodium 133 L, Potassium 3.5, Chloride 106, Carbon Dioxide 22, Anion Gap 8.5, BUN 11, Creatinine 1.20, Estimated Creat Clear 114, Estimated GFR 66, Est GFR ( Amer) 80, Glucose 155 H D, Calcium 8.9 01/02/21 18:22: POC Glucose 157 H 01/02/21 20:14: POC Glucose 203 H 01/02/21 22:00: POC Glucose 165 H 01/03/21 00:00: POC Glucose 171 H 01/03/21 02:15: POC Glucose 146 H 01/03/21 04:15: POC Glucose 128 H 01/03/21 06:10: POC Glucose 127 H 01/03/21 06:25: WBC 8.7, RBC 4.72, Hgb 13.1 L, Hct 39.3 L, MCV 83.2, MCH 27.8, MCHC 33.4, RDW 14.0, Plt Count 112 L, MPV 11.5 H, Neut % (Auto) 75.6, Lymph % (Auto) 16.7, [place] % (Auto) 5.7, Eos % (Auto) 1.5, Baso % (Auto) 0.5, Neut # (Auto) 6.6, Lymph # (Auto) 1.5, [place] # (Auto) 0.5, Eos # (Auto) 0.1, Baso # (Auto) 0.1 01/03/21 06:25: Sodium 135 L, Potassium 3.5, Chloride 108 H, Carbon Dioxide 21 L, Anion Gap 9.5, BUN 10, Creatinine 1.20, Estimated Creat Clear 119, Estimated GFR 66, Est GFR ( Amer) 80, Glucose 121 H D, Calcium 9.1, Magnesium 1.8, Total Bilirubin 1.3, AST 31 D, ALT 38 D, Alkaline Phosphatase 67, Total Protein 6.2 L, Albumin 3.3 L D, Globulin 2.9, Albumin/Globulin Ratio 1.1, Triglycerides 758 H, Cholesterol 263 H, LDL Cholesterol Direct < 30.00 L, HDL Cholesterol 21 L, Cholesterol/HDL Ratio 12.5 H I & O for Last 24 hours: Intake & Output 12/31/20 01/01/21 01/02/21 01/03/21 23:59 23:59 23:59 23:59 Intake Total 2548 / 2548 3069 / 3069 2375 / 2375 Output Total 975 / 1250 275 / 275 Balance 2548 / 2248 2094 / 1819 2099 / 2099 Weight 100 kg 102.2 kg 107.104 kg - Constitutional no acute distress, obese - *Routine HEENT Exam Head: Present: normocephalic Eye: Present: EOMI, PERRL ENT: Present: mucous membranes moist - *Routine Neck Exam Present: supple. Absent: lymphadenopathy - *Routine Respiratory Exam Present: CTA bilaterally - *Routine Cardiovascular Exam Present: RRR - *Routine Abdominal Exam Present: soft, normoactive bowel sounds, tenderness (upper abdominal tenderness without rebound or guarding) - *Routine Extremities Exam Absent: cyanosis, clubbing, edema - *Routine Skin Exam Present: warm. Absent: rash - *Routine Neurological Exam Present: alert, oriented X3 Assessment and Plan (1) Pancreatitis, acute Status: Acute Qualifiers: Pancreatitis type: unspecified pancreatitis type Acute pancreatitis complication: no infection or necrosis Qualified Code(s): K85.90 - Acute pancreatitis without necrosis or infection, unspecified Category: Medical Code(s): K85.90 - Acute pancreatitis without necrosis or infection, unspecified (2) Hypertriglyceridemia Status: Chronic Category: Medical Code(s): E78.1 - Pure hyperglyceridemia (3) Type 2 diabetes mellitus Status: Chronic Qualifiers: Category: Medical Code(s): E11.9 - Type 2 diabetes mellitus without complications - Assessment and plan all Dx Assessment and Plan for all problems:: 45-year-old male with hypertriglyceridemia, diabetes, pancrea
[2021-01-03 08:46] LABS: Microscopic, Urine URINE MICROSCOPIC (MICROSCOPIC)
[2021-01-03 08:48] LABS: Appearance,Urine CLEAR (Clear); Blood, Urine TRACE-I (Negative); Color,Urine DK YELLOW (Yellow); Glucose,Urine (UA) 2+ (Negative); Ketones,Urine Negative (Negative); Leukocyte Esterase,Urine Negative (Negative); Nitrate,Urine Negative (Negative); Protein,Urine 2+ (Negative); Specific Gravity, Urine >= 1.030 (1.005-1.030)
[2021-01-03 08:49] LABS: Bilirubin,Urine Negative (Negative)
[2021-01-03 08:55] LABS: Amorphous Sediment,Urine 2+ /lpf; Red Blood Cell Casts,Urine Occasional #/lpf (0); Squamous Epithelial Cell,Urine Occasional #/hpf (0-5)
[2021-01-03 09:10] LABS: POC Glucose,Bedside 159 (70-110)
[2021-01-03 12:26] LABS: POC Glucose,Bedside 164 (70-110)
[2021-01-03 17:16] LABS: POC Glucose,Bedside 169 (70-110)
--- NOTE | 2021-01-03 17:57 | PC.NURSE ---
patient has had an okay day. pain meds q4hr. mostly having pain with coughing. slight fever still. urine appears better. rings o as needed. complaints of some itching and small bumps that almost appear to be a heat rash have popped up on arms back and bottom. 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 independent in room. tolerating diet well. vitals stable. has been sleeping off and on especially with pain medication
[2021-01-03 21:02] LABS: POC Glucose,Bedside 210 (70-110)
[2021-01-04] VITALS: BP 125/72; RESP 18; TEMP 37.6; O2SAT 97
--- NOTE | 2021-01-04 03:15 | PC.NURSE ---
No acute changes noted. Pt c/o discomfort to abdomen early in shift. Medicated per dec. Pt states that it hurts more when he coughs. Incentive spirometer given and pt educated on use. He c/o itching at beginning of shift. Has denied any additional discomfort. Pt has been febrile this shift. Pt stated that he woke up sweating. Has been up to chair some this shift. He is resting in prone position at this time. VS are currently stable. No other concerns. Will continue to monitor.
[2021-01-04 04:00] VITALS: BP 140/84; PULSE 99; RESP 16; TEMP 38.4; O2SAT 97
[2021-01-04 05:00] VITALS: BMI 38.5
[2021-01-04 05:37] LABS: POC Glucose,Bedside 158 (70-110)
[2021-01-04 06:06] LABS: Basophils % 0.5 % (0.1-2.0); Eosinophils # 0.2 K/mm3 (0.0-0.4); Eosinophils % 2.6 % (0.1-12.0); Hematocrit 36.9 % (42.0-52.0); Hemoglobin 12.1 g/dL (14.1-18.0); Lymphocytes # 1.7 K/mm3 (0.7-4.5); Lymphocytes % 20.6 % (10-50); Mean Corpuscular HGB Conc 32.9 g/dL (31.8-35.4); Mean Corpuscular Hemoglobin 27.7 pg (27.0-31.2); Mean Corpuscular Volume 84.3 fl (80-94); Mean Platelet Volume 11.1 fl (7.4-10.4); Monocytes # 0.5 K/mm3 (0.1-1.0); Monocytes % 6.3 % (1.7-9.3); Neutrophils # 5.7 K/mm3 (1.8-7.8); Platelet Count 106 K/mm3 (142-424); Red Blood Count 4.38 M/mm3 (4.60-6.20); Red Cell Distribution Width 14.1 % (11.5-17.5); White Blood Count 8.1 K/mm3 (4.8-10.8)
[2021-01-04 06:13] LABS: Chloride 106 mmol/L (98-107); Sodium 135 mmol/L (136-145)
[2021-01-04 06:15] LABS: Blood Urea Nitrogen 9 mg/dl (9-20); Creatinine Clearance Estimated 127 mL/min (50-200); Estimated Glomerular Filt Rate 73 ml/min (>60); GFR (African American) 88 ML/MIN (>60)
[2021-01-04 06:16] LABS: Alanine Aminotransferase 31 U/L (12-78); Albumin Level 3.5 g/dl (3.5-5.0); Albumin/Globulin Ratio 1.2 (1.1-1.8); Alkaline Phosphatase 72 U/L (38-126); Aspartate Amino Transferase 25 U/L (17-59); Bilirubin,Total 1.1 mg/dl (0.2-1.3); Calcium 9.7 mg/dl (8.4-10.2); Carbon Dioxide 23 mmol/L (22.0-30.0); Magnesium 1.8 mg/dl (1.6-2.3); Total Protein,Serum 6.5 g/dl (6.3-8.2)
[2021-01-04 06:19] LABS: Glucose 167 mg/dl (74-100)
[2021-01-04 08:00] VITALS: BP 125/72; PULSE 97; RESP 20; TEMP 37.2; O2SAT 98
--- NOTE | 2021-01-04 08:55 | HMH.DCSUM ---
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 Patient has had abdominal pain for 12 hours, without response to OTC pain medications and clear liquids, came to the ER, lipase over thousand, significant pain. CT showed pancreatic inflammation. Admitted to hospital for pain control, IV fluids and further testing. Hospital Course Hospital Course: Patient was admitted, found to have exceedingly high triglycerides, too numerous for test to be performed, and also elevated A1c. After pain control was achieved we initiated insulin drip to help with triglyceride lowering which was successful. Patient responded well to this and over the next couple of days he was instituted on a full liquid low-fat diet. Yesterday and today had minimal pain. He was able to tolerate full liquids without problems. He has had a cough over the past 24 hours with a low-grade fever, cough is nonproductive. Plan will be to discharge him home today with the following plan: 1. Lantus insulin at night to help with diabetes and triglyceride lowering. We will see him back in 48 hours to evaluate glucose control and discuss further daytime bolus therapy. 2. Tylenol 3, 3-day supply and Phenergan for residual pain and vomiting from his fairly severe pancreatitis. 3. Continue fish oil and fibrate's for his triglyceride issues. See plan in #1 above. 4. Mild cough with low-grade fever. Given possible lung inflammation from pancreatitis although negative imaging and negative exam, will give patient azithromycin prescription for anti-inflammatory and antibiotic effect, close follow-up in 2 days. Please note his white cell count has been normal since admission. 5. Has information to make appointment with dietitian here for ultra low-fat diet evaluation. Objective Vital signs: Temp Pulse Resp BP Pulse Ox 99.0 F 97 H 20 125/72 98 01/04/21 08:00 01/04/21 08:00 01/04/21 08:00 01/04/21 08:00 01/04/21 08:00 no acute distress - *Routine HEENT Exam Head: Present: normocephalic Eye: Present: EOMI, PERRL ENT: Present: mucous membranes moist - *Routine Neck Exam Present: supple - *Routine Respiratory Exam Present: CTA bilaterally - *Routine Cardiovascular Exam Present: RRR - *Routine Abdominal Exam Present: soft, normoactive bowel sounds, tenderness (Rhinorrhea) Comments: minimal tenderness, much better - *Routine Extremities Exam Absent: cyanosis, clubbing, edema - *Routine Skin Exam Present: warm. Absent: rash - Detailed Eye Exam Eyelids: Bilateral normal inspection Results Labs on day of discharge: Labs from last 24 hours 01/04/21 01/04/21 01/04/21 06:00 06:00 05:16 WBC 8.1 RBC 4.38 L Hgb 12.1 L Hct 36.9 L MCV 84.3 MCH 27.7 MCHC 32.9 RDW 14.1 Plt Count 106 L MPV 11.1 H Neut % (Auto) 70.0 Lymph % (Auto) 20.6 [place] % (Auto) 6.3 Eos % (Auto) 2.6 Baso % (Auto) 0.5 Neut # (Auto) 5.7 Lymph # (Auto) 1.7 [place] # (Auto) 0.5 Eos # (Auto) 0.2 Baso # (Auto) 0.0 Sodium 135 L Potassium 4.0 Chloride 106 Carbon Dioxide 23 Anion Gap 10.0 BUN 9 Creatinine 1.10 Estimated Creat Clear 127 Estimated GFR 73 Est GFR ( Amer) 88 Glucose 167 H D POC Glucose 158 H Calcium 9.7 Magnesium 1.8 Total Bilirubin 1.1 AST 25 ALT 31 Alkaline Phosphatase 72 Total Protein 6.5 Albumin 3.5 Globulin 3.0 Albumin/Globulin Ratio 1.2 Urine Color Urine Appearance Urine pH Ur Specific [place] Urine Protein Urine Glucose (UA) Urine Ketones Urine Blood Urine Nitrate Urine Bilirubin Urine Urobilinogen Ur Leukocyte Esterase Urine RBC Urine WBC Ur Squamous Epith Cells Amorphous Sediment U
== END 2021-01-04 10:13 | disposition home or self-care (01) | DRG 440 ==
LOC: ER 00:26 → 2ND 02:27
PROVIDERS: Admitting Provider Internal Medicine Adolescent Medicine; Emergency Provider Emergency Medicine; PCP Internal Medicine Adolescent Medicine; Visit Provider Internal Medicine Adolescent Medicine
DX: K85.90 Acute pancreatitis without necrosis or infection, unspecified (principal); I10 Essential (primary) hypertension; E11.9 Type 2 diabetes mellitus without complications; Z79.4 Long term (current) use of insulin; E78.1 Pure hyperglyceridemia; Z79.899 Other long term (current) drug therapy
CPT/HCPCS: 36415; 74177; 80048; 80053; 80061; 81001; 82150; 82962; 83036; 83690; 83735; 84145; 85025; 85651; 86140; 87581; 87633; 87798; 96365; 96375; 99284; J2405; Q9967

== ENCOUNTER 2021-04-11 17:42 | Inpatient (IN) | payer BC, SELFPAY ==
[2021-04-11] VITALS (10 sets, daily range): BP systolic 125–161; BP diastolic 83–102; PULSE 70–103; RESP 18–24; TEMP 36.4–37; O2SAT 93–100; BMI 35.6
--- NOTE | 2021-04-11 17:58 | ECG_ITS ---
APPROVED REPORT Exam: Resting ECG HR:73 bpm ECG Measurements Heart Rate 73 AXES MD 158 P 47 QRSd 98 QRS 5 QT 404 T 43 QTc 445 Conclusion Normal sinus rhythm Normal ECG Electronically signed by : Jose Manuel Nelson, 04/12/2021 17:22:01
--- NOTE | 2021-04-11 18:02 | CT_ITS ---
PROCEDURE INFORMATION: Exam: CT Abdomen And Pelvis Without Contrast Exam date and time: 04/11/2021 6:02 PM Age: 45 years old Clinical indication: Abdominal pain; Acute; Prior surgery; Surgery date: 6+ months; Surgery type: Gallbladder; Patient HX: Left sided pelvic pain since 11 am; Additional info: Intractable abd pain; Epigastric TECHNIQUE: Imaging protocol: Computed tomography of the abdomen and pelvis without contrast. Total images: 336 Radiation optimization: All CT scans at this facility use at least one of these dose optimization techniques: automated exposure control; mA and/or kV adjustment per patient size (includes targeted exams where dose is matched to clinical indication); or iterative reconstruction. COMPARISON: CT ABDOMEN PELVIS W CON 01/01/2021 1:18 AM FINDINGS: Lungs: Visualized lung bases are clear. Heart: Heart size normal. Mediastinal space: The visualized distal esophagus is normal. Liver: Normal contour. No mass lesions. No intrahepatic biliary ductal dilatation. Mild fatty infiltration of the liver. Gallbladder and bile ducts: Evidence of prior cholecystectomy with no significant dilatation of the common bile duct. Pancreas: Mild generalized pancreatic enlargement with heterogeneous hypodensity in the pancreatic head and moderate peripancreatic edema/stranding consistent with acute pancreatitis. Postcontrast CT would be more sensitive for any elements of pancreatic necrosis if clinically indicated. No loculated fluid collections. Spleen: Borderline splenomegaly measuring 13.5 cm. Granulomatous calcifications in the spleen. Adrenal glands: Normal. No adrenal mass. Kidneys and ureters: No acute abnormalities. No hydronephrosis or hydroureter. No urinary tract stones are identified. Stomach and bowel: The stomach is moderately distended with fluid content but otherwise unremarkable. There is reactive wall thickening and luminal narrowing of the duodenum as it passes around the pancreatic head, which may be producing partial obstruction given the moderate fluid distension of the stomach and largely decompressed small-bowel and colon. No acute colonic abnormalities. The colon is largely contracted, which is felt to account for its slightly thick-walled appearance. Appendix: The appendix is normal in caliber and demonstrates no evidence of appendicitis. Intraperitoneal space: No free fluid or air. Vasculature: No acute process. No abdominal aortic aneurysm. Lymph nodes: No adenopathy. Urinary bladder: The urinary bladder is largely contracted without gross abnormality. Reproductive: Unremarkable as visualized. Bones/joints: No acute osseous abnormalities. Soft tissues: Unremarkable. IMPRESSION: 1. There is evidence of acute pancreatitis. There is moderate peripancreatic stranding/fluid, however no discretely loculated collections are identified. Postcontrast CT would be helpful in further characterization if clinically indicated. 2. Reactive duodenal wall thickening in the 2nd and 3rd portions adjacent to the pancreatic head with moderate fluid distension of the stomach and decompressed appearance of the small and large bowel beyond this segment, which may indicate partial obstruction. 3. Fatty liver. 4. Borderline splenomegaly.
[2021-04-11 18:09] LABS: Basophils # 0.1 K/mm3 (0-0.2); Basophils % 0.7 % (0.1-2.0); Eosinophils % 0.8 % (0.1-12.0); Red Cell Distribution Width 14.3 % (11.5-17.5)
[2021-04-11 18:12] LABS: Eosinophils # 0.1 K/mm3 (0.0-0.4); Hematocrit 51.5 % (42.0-52.0); Lymphocytes % 11.6 % (10-50); Mean Corpuscular HGB Conc 41.1 g/dL (31.8-35.4); Mean Corpuscular Hemoglobin 32.5 pg (27.0-31.2); Mean Corpuscular Volume 79.1 fl (80-94); Mean Platelet Volume 9.6 fl (7.4-10.4); Monocytes # 0.7 K/mm3 (0.1-1.0); Monocytes % 4.1 % (1.7-9.3); Neutrophils # 14.5 K/mm3 (1.8-7.8); Neutrophils % 82.8 % (37.0-80.0); Platelet Count 183 K/mm3 (142-424); White Blood Count 17.5 K/mm3 (4.8-10.8)
[2021-04-11 18:13] LABS: Hemoglobin 21.1 g/dL (14.1-18.0)
[2021-04-11 18:14] LABS: MANUAL DIFFERENTIAL MANUAL DIFFERENTIAL (MANUAL DIFF)
[2021-04-11 18:15] LABS: VBG Base Excess -8.3 mmol/L (-2.4-2.3); VBG HCO3 19.6 mmol/L (23-30); VBG Oxygen Saturation 47.6 % (50-70); VBG PCO2 50.5 mmol/L (35-51); VBG PH 7.21 mmol/L (7.31-7.41); VBG PO2 27.8 mmol/L (28-40); VBG Total CO2 21.2 mmol/L (23-27)
--- NOTE | 2021-04-11 18:15 | HMH.EDABDPAI ---
ED Disposition Clinical Impression: Pancreatitis Qualifiers: Chronicity: acute Pancreatitis type: other Acute pancreatitis complication: no infection or necrosis Qualified Code(s): K85.80 - Other acute pancreatitis without necrosis or infection Disposition: Admitted As Inpatient Condition on Discharge: Serious Instructions: DI for Acute Abdominal Pain Referrals: Sebas Talley MD [Primary Care Provider] - - Critical Care Critical Care Time: No Attestation: On 04/11/21, the high probability of a clinically significant, sudden or life threatening deterioration of the following system(s) required my full and direct attention, intervention and personal management. The time I documented below is in addition to time spent performing reported procedures but includes the following listed in this critical care notation. Medical Decision Making - Medical Records Medical records reviewed: Yes: I reviewed the patient's medical records. - [place] Inquiry Pt receiving controlled substance: No Vital Signs: 04/11/21 18:04 04/11/21 18:55 Temperature 97.6 F Temperature Source Oral Pulse Rate 88 Pulse Rate [Right] 82 Respiratory Rate 20 20 Blood Pressure 161/100 H Blood Pressure [Right Arm] 142/102 H Blood Pressure Mean [Right Arm] 115 02 Sat by Pulse Oximetry 98 93 L - Lab Data Lab results reviewed: Yes: I reviewed the patient's lab results. Lab Results 04/11/21 18:02: WBC 17.5 H, RBC 6.50 H, Hgb 21.1 H*, Hct 51.5, MCV 79.1 L, MCH 32.5 H, MCHC 41.1 H*, RDW 14.3, Plt Count 183, MPV 9.6, Neut % (Auto) 82.8 H, Lymph % (Auto) 11.6, [place] % (Auto) 4.1, Eos % (Auto) 0.8, Baso % (Auto) 0.7, Neut # (Auto) 14.5 H, Lymph # (Auto) 2.0, [place] # (Auto) 0.7, Eos # (Auto) 0.1, Baso # (Auto) 0.1, Total Counted 100, Neutrophils % (Manual) 77 H, Band Neutrophils % 2.0, Lymphocytes % (Manual) 17, Monocytes % (Manual) 2, Eosinophils % (Manual) 1, Metamyelocytes % 1.0, Platelet Estimate Normal, RBC Morphology Normal 04/11/21 18:02: Sodium 138, Potassium 4.5, Chloride 98, Carbon Dioxide 13 L, Anion Gap 31.5 H, BUN 16, Creatinine 1.10, Estimated Creat Clear 118, Estimated GFR 73, Est GFR ( Amer) 88, Glucose 146 H, Calcium 10.2, Total Bilirubin 1.4 H, AST 35, ALT 32, Alkaline Phosphatase 106, Total Protein 8.9 H D, Albumin 4.7, Globulin 4.2 H, Albumin/Globulin Ratio 1.1, Triglycerides 9233 H, Lipase 5111 H, Acetone Level Moderate 04/11/21 18:02: Plasma/Serum Alcohol < 10 04/11/21 18:02: Salicylates < 1.0 L 04/11/21 18:12: VBG pH 7.21 L, VBG pCO2 50.5, VBG pO2 27.8 L, VBG HCO3 19.6 L, VBG Total CO2 21.2 L, VBG O2 Saturation 47.6 L, VBG Base Excess -8.3 L 04/11/21 18:19: Lactate 1.9 04/11/21 18:27: Urine Color Yellow, Urine Appearance Clear, Urine pH 5.0, Ur Specific [place] >= 1.030, Urine Protein 3+, Urine Glucose (UA) 3+, Urine Ketones 3+, Urine Blood 1+, Urine Nitrate Negative, Urine Bilirubin 2+ A, Urine Urobilinogen 0.2, Ur Leukocyte Esterase Negative, Urine RBC Occasional, Urine WBC Occasional, Urine Bacteria 1+ 04/11/21 18:27: Urine Opiates Screen Negative, Urine Methadone Screen Negative, Ur Barbituates Screen Negative, Ur Phencyclidine Scrn Negative, Ur Amphetamines Screen Negative, U Benzodiazepines Scrn Negative, Urine Cocaine Screen Negative, U Marijuana (THC) Screen Negative Result diagrams: 04/11/21 18:02 04/11/21 18:02 Orders (Tests/Meds): ED MEDICATIONS Generic Name Dose Route Start Last Admin Trade Name Freq PRN Reason Stop Dose Admin Sodium Chloride 1,000 mls @ 999 mls/hr 04/11/21 18:15 04/11/21 18:28 Sod Chlor 0.9% 1000ml Bag IV 04/11/21 19:15 999 mls/hr .Q1H1M [facility]OR[place] Administration Potassium Chloride/Dextrose/Sod Cl 1,000 mls @ 125 mls/hr 04/11/21 19:15 Kcl 20meq In D5w-0.45% Nacl IV 05/11/21 19:14 .Q8H LOR[facility] Heparin Sodium/Dextrose 500 mls @ 20 mls/hr 04/11/21 19:15 Heparin 25,000 Units In D5w 500ml Premix IV 05/11/21 19:14 .Q25H LOREE 1,000 UNITS/HR Insulin Human Regular 100 unit
[2021-04-11 18:16] LABS: Alanine Aminotransferase 32 U/L (12-78); Albumin Level 4.7 g/dl (3.5-5.0); Albumin/Globulin Ratio 1.1 (1.1-1.8); Alkaline Phosphatase 106 U/L (38-126); Anion Gap 31.5 mEq/L (5-15); Aspartate Amino Transferase 35 U/L (17-59); Bilirubin,Total 1.4 mg/dl (0.2-1.3); Blood Urea Nitrogen 16 mg/dl (9-20); Calcium 10.2 mg/dl (8.4-10.2); Carbon Dioxide 13 mmol/L (22.0-30.0); Chloride 98 mmol/L (98-107); Creatinine Clearance Estimated 118 mL/min (50-200); Estimated Glomerular Filt Rate 73 ml/min (>60); GFR (African American) 88 ML/MIN (>60); Globulin 4.2 g/dL (1.3-3.2); Potassium 4.5 mmoL/L (3.5-5.1); Sodium 138 mmol/L (136-145); Total Protein,Serum 8.9 g/dl (6.3-8.2)
[2021-04-11 18:22] LABS: Eosinophils % 1 % (0-3); Lymphocytes % 17 % (10-50); Monocytes % 2 % (2-9); Neutrophils % 77 % (42-76); Total Cells Counted 100
[2021-04-11 18:23] LABS: Platelet Estimate Normal; RBC Morphology Normal
[2021-04-11 18:37] LABS: Lactic Acid 1.9 mmol/L (0.7-2.1)
[2021-04-11 18:41] LABS: Glucose 146 mg/dl (74-100); Lipase 5111 U/L (23-300)
[2021-04-11 18:52] LABS: Triglycerides 9233 mg/dl (30-150)
[2021-04-11 18:58] LABS: Microscopic, Urine URINE MICROSCOPIC (MICROSCOPIC)
[2021-04-11 19:00] LABS: Acetone, Serum (Rapid) Moderate (None Detect); Ethyl Alcohol < 10 mg/dl (0-10); Salicylate < 1.0 mg/dL (2.0-20.0)
[2021-04-11 19:01] LABS: Appearance,Urine CLEAR (Clear); Blood, Urine 1+ (Negative); Color,Urine YELLOW (Yellow); Glucose,Urine (UA) 3+ (Negative); Ketones,Urine 3+ (Negative); Leukocyte Esterase,Urine Negative (Negative); Nitrate,Urine Negative (Negative); Protein,Urine 3+ (Negative); Specific Gravity, Urine >= 1.030 (1.005-1.030); Urobilinogen,Urine 0.2 EU/dl (0.2)
[2021-04-11 19:09] LABS: Bacteria,Urine 1+ /lpf; Bilirubin,Urine 2+ (Negative); RBC,Urine Occasional #/hpf (0-3); WBC,Urine Occasional #/hpf (0-3)
[2021-04-11 19:12] LABS: Amphetamine/Metha Screen,Urine Negative ng/ml (<1000)
[2021-04-11 19:13] LABS: Barbiturates Screen,Urine Negative ng/ml (<200); Benzodiazepines Screen,Urine Negative ng/ml (<200)
[2021-04-11 19:14] LABS: Cannabinoid Screen,Urine Negative ng/ml (<50); Cocaine Screen,Urine Negative ng/ml (<300)
[2021-04-11 19:15] LABS: Methadone Screen,Urine Negative ng/ml (<300)
[2021-04-11 19:16] LABS: Opiate Screen,Urine Negative ng/ml (<300); Phencyclidine Screen,Urine Negative ng/ml (<25)
[2021-04-11 19:20] LABS: Coronavirus 19, PCR Not Detected (NotDetected); Influenza A, PCR Not Detected (NotDetected); Influenza B, PCR Not Detected (NotDetected)
--- NOTE | 2021-04-11 20:20 | PC.NURSE ---
Confirmed hep dosing with [facility] at [facility] for 1000 units/hr
--- NOTE | 2021-04-11 21:36 | PC.NURSE ---
PT ARRIVED TO FLOOR VIA STRETCHER FROM ED W/STAFF AT 2124
[2021-04-11 23:19] LABS: POC Glucose,Bedside 182 (70-110)
[2021-04-11 23:19] LABS: POC Glucose,Bedside 213 (70-110)
[2021-04-12] VITALS (17 sets, daily range): BP systolic 90–147; BP diastolic 50–83; PULSE 92–113; RESP 19–24; TEMP 36.3–37; O2SAT 89–97; BMI 35.4; BMI 35.5
[2021-04-12 00:16] LABS: POC Glucose,Bedside 223 (70-110)
[2021-04-12 01:24] LABS: POC Glucose,Bedside 248 (70-110)
[2021-04-12 02:25] LABS: POC Glucose,Bedside 294 (70-110)
[2021-04-12 03:08] LABS: POC Glucose,Bedside 265 (70-110)
--- NOTE | 2021-04-12 03:28 | PC.NURSE ---
pt admitted with hypertriglyceridemia included pancreatitis. pt reports pain to abdomen that was unrelieved from pain medication. new order obtained and pt had relief. one episode of emesis and prn med given. pt ambulates to bathroom with assist. telemetry in place and reads Sinus Tach. iv patent and infusing. fsbs was increasing and maintenance fluid changed to NS. insulin drip at 5 unit/hr that is not to be titrated per md order. heparin drip currently at 1000 units/hr. bp has decreased since arrival to floor. o2 sat were dropping into lower 80's while sleeping and 2LNC was applied. o2 sat currently 95%. afebrile. upon assessment abdomen was auscultated for 3 minutes per quadrant before hearing any bowel sounds. pt reports flatulence and bowel movement prior to admission. pt states he has been having frequent loose bowel movements. md was made aware of assessment findings. call light in reach. will continue to monitor
[2021-04-12 04:15] LABS: POC Glucose,Bedside 252 (70-110)
[2021-04-12 04:42] LABS: Chloride 105 mmol/L (98-107)
[2021-04-12 04:43] LABS: Sodium 131 mmol/L (136-145)
[2021-04-12 04:46] LABS: Anion Gap 23.5 mEq/L (5-15); Basophils # 0.1 K/mm3 (0-0.2); Basophils % 1.3 % (0.1-2.0); Blood Urea Nitrogen 20 mg/dl (9-20); Creatinine Clearance Estimated 76 mL/min (50-200); Eosinophils # 0.1 K/mm3 (0.0-0.4); Eosinophils % 0.7 % (0.1-12.0); Estimated Glomerular Filt Rate 44 ml/min (>60); GFR (African American) 53 ML/MIN (>60); Glucose 241 mg/dl (74-100); Hematocrit 54.7 % (42.0-52.0); Lymphocytes # 1.7 K/mm3 (0.7-4.5); Lymphocytes % 20.6 % (10-50); Mean Corpuscular Volume 80.1 fl (80-94); Mean Platelet Volume 10.3 fl (7.4-10.4); Monocytes # 0.5 K/mm3 (0.1-1.0); Monocytes % 5.7 % (1.7-9.3); Neutrophils # 5.9 K/mm3 (1.8-7.8); Neutrophils % 71.6 % (37.0-80.0); Platelet Count 249 K/mm3 (142-424); Red Blood Count 6.82 M/mm3 (4.60-6.20); Red Cell Distribution Width 14.6 % (11.5-17.5); White Blood Count 8.3 K/mm3 (4.8-10.8)
[2021-04-12 05:01] LABS: Mean Corpuscular Hemoglobin 27.9 pg (27.0-31.2)
[2021-04-12 05:14] LABS: Carbon Dioxide 9 mmol/L (22.0-30.0); Potassium 6.5 mmoL/L (3.5-5.1)
[2021-04-12 05:18] LABS: POC Glucose,Bedside 251 (70-110)
[2021-04-12 07:00] LABS: POC Glucose,Bedside 265 (70-110)
[2021-04-12 07:01] LABS: POC Glucose,Bedside 236 (70-110)
--- NOTE | 2021-04-12 07:47 | PC.NURSE ---
Dr. Nelson rounding and ordered to treat pt as a DKA and to follow the DKA protocol, FSBS q1 hr, BMP and acetone @ 1200, titrate insulin gtt based on protocol, finish 2nd NS 1L bolus and to give additional 1L NS, then run NS @ 200mL/hr.
--- NOTE | 2021-04-12 07:49 | HMH.HP ---
*Admission Date: 04/11/21 *Chief complaint: Epigastric abdominal pain *History of present illness: 45-year-old white male with history of insulin requiring type 2 diabetes, severe hyperlipidemia that has caused pancreatitis in the past, and hypertension who presented to the emergency department with 24 hours of gnawing, intractable and worsening epigastric pain. He endorses a recent trip to the beach where he had some significant dietary lapses and about 2 days after he got back had this pain onset. In the emergency department was found to be ketotic, acetone in his system, significant hyperlipidemia, evidence of pancreatitis both biochemically and radiographically and was admitted to hospital. [facility] History I have reviewed the patient's past medical history: Yes Medical History: Reports:: Diabetes Mellitus Type 2, Hyperlipidemia, Hypertension Denies:: Cancer, Diabetes Mellitus Type 1, MRSA *Have you ever received a pneumonia vaccine?: No *Have you received a flu vaccine this season?: Yes Other Surgeries: Yes: Cholecystectomy, Other Amputation: No Fractures: No - *Social History Smoking Status: Never smoker Alcohol Intake: never Substance Use Type: denies use *Occupational Status:: employed Housing: house Household Members: spouse *Travel in the last 8 weeks: Inside the [facility] Family Hx:: No significant family history Review of Systems - Review of Systems Review of systems:: pertinent systems reviewed and negative unless documented below - Constitutional Reports anorexia, Denies fever(s) - ENT Denies abnormal hearing, Denies bleeding gums - *Cardiovascular Denies chest pain, Denies chest pain at rest - *Respiratory Denies change in phlegm color, Denies chest congestion, Denies cough, Denies shortness of breath with activity - *Gastrointestinal Reports abdominal pain - *Genitourinary Denies difficulty urinating - *Musculoskeletal Denies abnormal walking - *Neurologic Denies burning sensations, Denies unsteadiness, Denies dizziness, Denies localized weakness Meds Home Medications Medication Instructions Recorded Confirmed Type Cetirizine HCl 10 mg PO DAILY 04/11/20 04/11/21 History Fenofibrate 160 mg PO DAILY #90 tab 04/14/20 04/11/21 Rx Tennga-3 Acid Ethyl Esters [Lovaza] 2 gm PO BID #120 cap 04/14/20 04/11/21 Rx Aspirin [Adult Low Dose Aspirin EC] 81 mg PO DAILY 01/01/21 04/11/21 History Dapagliflozin Propanediol [Farxiga] 10 mg PO DAILY 01/01/21 04/11/21 History Insulin Glargine,Hum.rec.anlog 15 units SQ HS 01/01/21 04/11/21 History [Lantus Solostar 100 Units/mL 3mL flexpen] Insulin Lispro 0 unit SQ AC 01/01/21 04/11/21 History Rosuvastatin Calcium 5 mg PO HS 01/01/21 04/11/21 History lisinopriL [Zestril 10mg Tab] 10 mg PO DAILY 01/01/21 04/11/21 History Acetaminophen with Codeine 1 - 2 tab PO Q8HP PRN 3 Days #15 01/04/21 04/11/21 Rx [Tylenol with Codeine #3 tab tablet] Allergies Allergy/AdvReac Type Severity Reaction Status Date / Time atorvastatin [From Lipitor] Allergy Verified 04/11/21 18:14 niacin Allergy Verified 04/11/21 18:14 Exam Vital signs and Labs for Last 24 Hours: Temp Pulse Resp BP Pulse Ox 98.3 F 97 H 22 90/50 L 93 L 04/12/21 03:19 04/12/21 06:00 04/12/21 06:00 04/12/21 06:00 04/12/21 06:00 Laboratory Results - last 24 hr 04/11/21 18:02: WBC 17.5 H, RBC 6.50 H, Hgb 21.1 H*, Hct 51.5, MCV 79.1 L, MCH 32.5 H, MCHC 41.1 H*, RDW 14.3, Plt Count 183, MPV 9.6, Neut % (Auto) 82.8 H, Lymph % (Auto) 11.6, [place] % (Auto) 4.1, Eos % (Auto) 0.8, Baso % (Auto) 0.7, Neut # (Auto) 14.5 H, Lymph # (Auto) 2.0, [place] # (Auto) 0.7, Eos # (Auto) 0.1, Baso # (Auto) 0.1, Total Counted 100, Neutrophils % (Manual) 77 H, Band Neutrophils % 2.0, Lymphocytes % (Manual) 17, Monocytes % (Manual) 2, Eosinophils % (Manual) 1, Metamyelocytes % 1.0, Platelet Estimate Normal, RBC Morphology Normal 04/11/21 18:02: Sodium 138, Potassium 4.5, Chloride 98, Carbo
--- NOTE | 2021-04-12 07:55 | XR_ITS ---
PROCEDURE INFORMATION: Exam: XR Chest Exam date and time: 04/12/2021 7:55 AM Age: 45 years old Clinical indication: Shortness of breath; Patient HX: F/u icu. Very uncooperative PT; Additional info: F/u icu exam TECHNIQUE: Imaging protocol: XR of the chest. Views: 1 view. COMPARISON: CT ABDOMEN PELVIS WO CON 04/11/2021 6:21 PM FINDINGS: Lungs: Unremarkable. No consolidation. Pleural spaces: Unremarkable. No pleural effusion. No pneumothorax. Heart/Mediastinum: Unremarkable. No cardiomegaly. Bones/joints: Unremarkable. IMPRESSION: No acute findings.
--- NOTE | 2021-04-12 07:55 | PC.NURSE ---
Dr. Nelson ordered to start sepsis fluid bolus 30mL/kg (2900mL), obtain blood cx and urine cx
--- NOTE | 2021-04-12 08:00 | PC.NURSE ---
FSBS 207. Insulin gtt to continue @ 5units/hr per insulin gtt protocol. Sepsis bolus started
--- NOTE | 2021-04-12 09:00 | PC.NURSE ---
FSBS 231. Insulin gtt continues @ 5units/hr per insulin gtt protocol
--- NOTE | 2021-04-12 09:19 | P.CONPHA_ITS ---
[facility] Pharmacy VTE Monitoring - Patient Demographics Admission date: 04/11/21 Report Date: 04/12/21 Time: 09:19 Allergies/Adverse Reactions: Patient Allergies atorvastatin [From Lipitor] Allergy (Verified 04/11/21 18:14) niacin Allergy (Verified 04/11/21 18:14) Height: 1.65 m Weight: 96.757 kg Patient Problems: Current Active Problems Type 2 diabetes mellitus (Chronic) Hypertriglyceridemia (Chronic) Pancreatitis (Acute) DKA, type 2, not at goal (Acute) Hyperkalemia (Acute) Acute kidney injury (Acute) - VTE Risk Labs: VTE Related Lab Results Hgb 19.0 g/dL (14.1-18.0) H* 04/12/21 04:27 Hct 54.7 % (42.0-52.0) H 04/12/21 04:27 Plt Count 249 K/mm3 (142-424) D 04/12/21 04:27 APTT TNP 04/12/21 04:27 BUN 20 mg/dl (9-20) 04/12/21 04:27 Creatinine 1.70 mg/dl (0.66-1.25) H D 04/12/21 04:27 Estimated Creat Clear 76 mL/min (50-200) 04/12/21 04:27 VTE Score: 2 VTE Risk Level: Very Low Risk Clinical Trial Participant: No - Prophylaxis VTE Prophylaxis Ordered?: Yes Types of VTE Prophylaxis: TEDS Knee High
--- NOTE | 2021-04-12 09:30 | PC.NURSE ---
blood cultures and urine cultures obtained prior to starting Rocephin IV
--- NOTE | 2021-04-12 10:00 | PC.NURSE ---
FSBS 209. Insulin gtt continues @ 5units/hr per insulin gtt protocol
--- NOTE | 2021-04-12 11:00 | PC.NURSE ---
FSBS 188. Insulin gtt continues @ 5units/hr per insulin gtt protocol
--- NOTE | 2021-04-12 12:00 | PC.NURSE ---
FSBS 194. Insulin gtt continues @ 5units/hr per insulin gtt protocol
[2021-04-12 12:37] LABS: Chloride 109 mmol/L (98-107); Sodium 131 mmol/L (136-145)
[2021-04-12 12:38] LABS: Acetone, Serum (Rapid) None Detected (None Detect)
[2021-04-12 12:40] LABS: Blood Urea Nitrogen 22 mg/dl (9-20); Creatinine Clearance Estimated 76 mL/min (50-200); Estimated Glomerular Filt Rate 44 ml/min (>60); GFR (African American) 53 ML/MIN (>60)
[2021-04-12 12:41] LABS: Calcium 7.2 mg/dl (8.4-10.2); Carbon Dioxide 13 mmol/L (22.0-30.0); Glucose 202 mg/dl (74-100)
[2021-04-12 12:42] LABS: Anion Gap 18.5 mEq/L (5-15)
[2021-04-12 12:43] LABS: Potassium 9.5 mmoL/L (3.5-5.1)
--- NOTE | 2021-04-12 12:46 | PC.NURSE ---
Dr. New updated that K 9.5 but may be falsely high r/t hemolysis. No acetone detected and gap is 18.5.
--- NOTE | 2021-04-12 13:21 | PC.NURSE ---
Spoke to Dr. New, who ordered the following: Kayexelate 15mg po Q6hrs, repeat Calcium Gluconate 2000mg IV, Albuterol neb x1, and to notify him @ 4pm with BMP results.
--- NOTE | 2021-04-12 14:00 | PC.NURSE ---
FSBS 194. Insulin gtt continues @ 5units/hr per insulin gtt protocol
--- NOTE | 2021-04-12 16:00 | PC.NURSE ---
FSBS 190. Insulin gtt continues @ 5units/hr per insulin gtt protocol
[2021-04-12 16:16] LABS: Chloride 111 mmol/L (98-107)
[2021-04-12 16:17] LABS: Potassium 5.5 mmoL/L (3.5-5.1); Sodium 134 mmol/L (136-145)
[2021-04-12 16:19] LABS: Blood Urea Nitrogen 25 mg/dl (9-20); Creatinine Clearance Estimated 68 mL/min (50-200); Estimated Glomerular Filt Rate 39 ml/min (>60); GFR (African American) 47 ML/MIN (>60)
[2021-04-12 16:20] LABS: Anion Gap 18.5 mEq/L (5-15); Calcium 7.9 mg/dl (8.4-10.2); Glucose 186 mg/dl (74-100)
[2021-04-12 16:21] LABS: Carbon Dioxide 10 mmol/L (22.0-30.0)
--- NOTE | 2021-04-12 16:33 | PC.NURSE ---
Notified Dr. New of the following: CO2 10 and gap 13 (based on formula). No new orders received at this time
--- NOTE | 2021-04-12 18:00 | PC.NURSE ---
FSBS 167. Insulin gtt continues @ 5units/hr per insulin gtt protocol
--- NOTE | 2021-04-12 18:05 | PC.NURSE ---
shift note: pt has been stable. Gets OOB without assistance. BP has improved throughout shift. Has not required pressors. NSR on tele. Dilaudid 1mg IV given once for abd pain. Insulin gtt has remained on 5units/hr despite DKA/insulin gtt protocol. FSBS range 188-236. FSBS Q2 secondary to no titration of insulin gtt today. No acetone detected @ noon. Gap 9 @ noon and 13 @ 1600. Next BMP due @ 1999. K improved with Kayexelate and Calcium Gluconate 2000mg x 2 doses. NS infusing @ 200mL/hr. Continues to be NPO. No other changes noted.
[2021-04-12 20:25] LABS: Anion Gap 14.2 mEq/L (5-15); Blood Urea Nitrogen 25 mg/dl (9-20); Calcium 7.9 mg/dl (8.4-10.2); Carbon Dioxide 19 mmol/L (22.0-30.0); Chloride 107 mmol/L (98-107); Creatinine Clearance Estimated 61 mL/min (50-200); Estimated Glomerular Filt Rate 34 ml/min (>60); GFR (African American) 42 ML/MIN (>60); Glucose 151 mg/dl (74-100); Potassium 5.2 mmoL/L (3.5-5.1); Sodium 135 mmol/L (136-145)
[2021-04-12 20:29] LABS: POC Glucose,Bedside 159 (70-110)
--- NOTE | 2021-04-12 22:55 | PC.NURSE ---
[address] PT ASLEEP . URINE EMPTIED ALONG WITH TRASH AND LINENS.
[2021-04-13] VITALS (11 sets, daily range): BP systolic 103–160; BP diastolic 61–100; PULSE 100–120; RESP 18–20; TEMP 36.4–37.3; O2SAT 18–95; BMI 35.5
--- NOTE | 2021-04-13 00:13 | PC.NURSE ---
He has received PRN medications for reported pain in LLQ. He has been placed on 2LPM n/c while sleeping. Sinus tachycardia on telemetry. He ambulates with steady gait to the bathroom. He is currently NPO. He reports having a BM on 04/12/21 and passing gas. Bowel sounds hypoactive.
[2021-04-13 01:10] LABS: POC Glucose,Bedside 231 (70-110)
[2021-04-13 01:10] LABS: POC Glucose,Bedside 188 (70-110)
[2021-04-13 01:10] LABS: POC Glucose,Bedside 190 (70-110)
[2021-04-13 01:10] LABS: POC Glucose,Bedside 209 (70-110)
[2021-04-13 01:10] LABS: POC Glucose,Bedside 194 (70-110)
[2021-04-13 01:10] LABS: POC Glucose,Bedside 207 (70-110)
[2021-04-13 01:10] LABS: POC Glucose,Bedside 194 (70-110)
[2021-04-13 01:10] LABS: POC Glucose,Bedside 167 (70-110)
[2021-04-13 05:34] LABS: Chloride 108 mmol/L (98-107)
[2021-04-13 05:35] LABS: Sodium 136 mmol/L (136-145)
[2021-04-13 05:36] LABS: Basophils % 0.4 % (0.1-2.0); Eosinophils # 0.1 K/mm3 (0.0-0.4); Eosinophils % 0.9 % (0.1-12.0); Hematocrit 48.8 % (42.0-52.0); Hemoglobin 16.6 g/dL (14.1-18.0); Lymphocytes # 1.3 K/mm3 (0.7-4.5); Lymphocytes % 16.4 % (10-50); Mean Corpuscular HGB Conc 34.1 g/dL (31.8-35.4); Mean Corpuscular Hemoglobin 28.4 pg (27.0-31.2); Mean Corpuscular Volume 83.2 fl (80-94); Mean Platelet Volume 10.3 fl (7.4-10.4); Monocytes # 0.4 K/mm3 (0.1-1.0); Monocytes % 5.5 % (1.7-9.3); Neutrophils # 6.1 K/mm3 (1.8-7.8); Neutrophils % 76.8 % (37.0-80.0); Platelet Count 148 K/mm3 (142-424); Red Blood Count 5.86 M/mm3 (4.60-6.20); Red Cell Distribution Width 14.9 % (11.5-17.5); White Blood Count 7.9 K/mm3 (4.8-10.8)
[2021-04-13 05:37] LABS: Alanine Aminotransferase 100 U/L (12-78); Alkaline Phosphatase 73 U/L (38-126); Aspartate Amino Transferase 94 U/L (17-59); Bilirubin,Total 1.4 mg/dl (0.2-1.3); Blood Urea Nitrogen 30 mg/dl (9-20); Creatinine Clearance Estimated 52 mL/min (50-200); Estimated Glomerular Filt Rate 28 ml/min (>60); GFR (African American) 34 ML/MIN (>60)
[2021-04-13 05:38] LABS: Albumin Level 3.3 g/dl (3.5-5.0); Albumin/Globulin Ratio 1.2 (1.1-1.8); Calcium 7.9 mg/dl (8.4-10.2); Carbon Dioxide 19 mmol/L (22.0-30.0); Globulin 2.8 g/dL (1.3-3.2); Glucose 172 mg/dl (74-100); Total Protein,Serum 6.1 g/dl (6.3-8.2)
[2021-04-13 06:00] LABS: POC Glucose,Bedside 164 (70-110)
--- NOTE | 2021-04-13 06:37 | PC.NURSE ---
[address] PATIENT ASLEEP. TRASH EMPTIED .
--- NOTE | 2021-04-13 07:32 | US_ITS ---
PROCEDURE: US KIDNEY CLINICAL INDICATION: MALOU Renal disease COMPARISON: No exams were available for comparison FINDINGS: The right kidney is 12 x 5 6 cm and has an unremarkable appearance. The left kidney is 13 x 6 6 cm and also has an unremarkable appearance. No renal mass or hydronephrosis apparent. The spleen is enlarged at 14 cm from pole to pole ascites is noted. IMPRESSION: Unremarkable renal ultrasound. Mild splenomegaly with a mild amount of ascites Dictated by: Flakito Vasquez MD 04/13/2021 09:55 Flakito Vasquez MD in [place] 04/13/2021 09:55
--- NOTE | 2021-04-13 08:04 | HMH.ACPN2 ---
Internal Medicine - PN: Subj *Date: 04/13/21 *Time: 08:04 Interval history: Patient states that he feels better this morning. Events of yesterday noted with significant hyperkalemia, appreciate Dr. New help with appropriate treatment of significant hyperkalemia and now potassium has essentially normalized. Creatinine however, has gone up, although patient notes that he is having urine output and has no visible blood. Exam Vital signs and Labs for Last 24 Hours: Temp Pulse Resp BP Pulse Ox 97.4 F L 113 H 20 104/66 L 90 L 04/12/21 15:42 04/13/21 06:00 04/12/21 18:00 04/13/21 06:00 04/13/21 06:00 Laboratory Results - last 24 hr 04/12/21 08:17: POC Glucose 207 H 04/12/21 09:05: POC Glucose 231 H 04/12/21 10:08: POC Glucose 209 H 04/12/21 11:06: POC Glucose 188 H 04/12/21 12:03: POC Glucose 194 H 04/12/21 12:05: Sodium 131 L, Potassium 9.5 H* D, Chloride 109 H, Carbon Dioxide 13 L D, Anion Gap 18.5 H, BUN 22 H, Creatinine 1.70 H, Estimated Creat Clear 76, Estimated GFR 44 L, Est GFR ( Amer) 53 L, Glucose 202 H, Calcium 7.2 L, Acetone Level None detected 04/12/21 14:06: POC Glucose 194 H 04/12/21 16:00: Sodium 134 L, Potassium 5.5 H D, Chloride 111 H, Carbon Dioxide 10 L D, Anion Gap 18.5 H, BUN 25 H, Creatinine 1.90 H, Estimated Creat Clear 68, Estimated GFR 39 L, Est GFR ( Amer) 47 L, Glucose 186 H, Calcium 7.9 L 04/12/21 16:00: POC Glucose 190 H 04/12/21 18:12: POC Glucose 167 H 04/12/21 19:58: POC Glucose 159 H 04/12/21 20:00: Sodium 135 L, Potassium 5.2 H, Chloride 107, Carbon Dioxide 19 L D, Anion Gap 14.2, BUN 25 H, Creatinine 2.10 H, Estimated Creat Clear 61, Estimated GFR 34 L, Est GFR ( Amer) 42 L, Glucose 151 H, Calcium 7.9 L 04/13/21 05:10: WBC 7.9, RBC 5.86, Hgb 16.6, Hct 48.8, MCV 83.2, MCH 28.4, MCHC 34.1, RDW 14.9, Plt Count 148 D, MPV 10.3, Neut % (Auto) 76.8, Lymph % (Auto) 16.4, [place] % (Auto) 5.5, Eos % (Auto) 0.9, Baso % (Auto) 0.4, Neut # (Auto) 6.1, Lymph # (Auto) 1.3, [place] # (Auto) 0.4, Eos # (Auto) 0.1, Baso # (Auto) 0.0 04/13/21 05:10: Sodium 136, Potassium 5.0, Chloride 108 H, Carbon Dioxide 19 L, Anion Gap 14.0, BUN 30 H, Creatinine 2.50 H, Estimated Creat Clear 52, Estimated GFR 28 L, Est GFR ( Amer) 34 L, Glucose 172 H, Calcium 7.9 L, Total Bilirubin 1.4 H, AST 94 H D, ALT 100 H D, Alkaline Phosphatase 73, Total Protein 6.1 L D, Albumin 3.3 L D, Globulin 2.8, Albumin/Globulin Ratio 1.2 04/13/21 05:14: POC Glucose 164 H I & O for Last 24 hours: Intake & Output 04/10/21 04/11/21 04/12/21 04/13/21 11:59 11:59 11:59 11:59 Intake Total 2150 / 2150 8027 / 8027 Output Total 250 / 250 850 / 850 Balance 1900 / 1900 7177 / 7177 Weight 213 lb 5 oz 213 lb 5.003 oz Narrative: Patient's heart rate is regular, lungs are clear, blood pressure is normal. ENT exam clear. He is neurologically intact. Abdomen shows no periumbilical or flank bruising. He remains tender in the epigastric area but slightly better than yesterday's exam. He has no peripheral edema or bruising or petechiae. Assessment and Plan (1) DKA, type 2, not at goal Status: Acute Category: Medical Code(s): E11.10 - Type 2 diabetes mellitus with ketoacidosis without coma (2) Hyperkalemia Status: Acute Category: Medical Code(s): E87.5 - Hyperkalemia (3) Acute kidney injury Status: Acute Category: Medical Code(s): N17.9 - Acute kidney failure, unspecified (4) Pancreatitis Status: Acute Qualifiers: Chronicity: acute Pancreatitis type: other Acute pancreatitis complication: no infection or necrosis Qualified Code(s): K85.80 - Other acute pancreatitis without necrosis or infection Category: Medical Code(s): K85.90 - Acute pancreatitis without necrosis or infection, unspecified (5) Hypertriglyceridemia Status: Chronic Category: Medical Code(s): E78.1 - Pure hyperglyceridemia (6) Type 2 diabetes mellitus Status: Chronic Qualifiers: Category
[2021-04-13 08:33] LABS: Chol/HDL Ratio 17.4 (1-3.5); Cholesterol 261 mg/dl (140-200); HDL Cholesterol 15 mg/dl (40-60)
[2021-04-13 08:54] LABS: Microscopic, Urine URINE MICROSCOPIC (MICROSCOPIC)
[2021-04-13 08:55] LABS: Appearance,Urine SL CLOUDY (Clear); Blood, Urine 1+ (Negative); Color,Urine ORANGE (Yellow); Glucose,Urine (UA) 3+ (Negative); Ketones,Urine Negative (Negative); Leukocyte Esterase,Urine Negative (Negative); Nitrate,Urine Negative (Negative); Protein,Urine 1+ (Negative); Specific Gravity, Urine >= 1.030 (1.005-1.030); Urobilinogen,Urine 0.2 EU/dl (0.2)
[2021-04-13 08:58] LABS: Direct LDL Cholesterol < 30.00 mg/dL (100-129); Triglycerides > 1575 mg/dl (30-150)
[2021-04-13 09:02] LABS: Bilirubin,Urine 1+ (Negative)
[2021-04-13 09:54] LABS: Bacteria,Urine Trace /lpf; Squamous Epithelial Cell,Urine Occasional #/hpf (0-5)
[2021-04-13 11:36] LABS: POC Glucose,Bedside 195 (70-110)
--- NOTE | 2021-04-13 15:48 | PC.NURSE ---
pt has rested well this shift. he was able to wash up with the assistance of his s/o. bowels are active, abdomen feels tight per pt. lungs are active in all quads. nad noted.
[2021-04-13 16:13] LABS: Chloride 106 mmol/L (98-107); Potassium 3.7 mmoL/L (3.5-5.1); Sodium 134 mmol/L (136-145)
[2021-04-13 16:16] LABS: Anion Gap 13.7 mEq/L (5-15); Blood Urea Nitrogen 27 mg/dl (9-20); Calcium 8.4 mg/dl (8.4-10.2); Carbon Dioxide 18 mmol/L (22.0-30.0); Creatinine Clearance Estimated 72 mL/min (50-200); Estimated Glomerular Filt Rate 41 ml/min (>60); GFR (African American) 50 ML/MIN (>60); Glucose 269 mg/dl (74-100)
[2021-04-13 17:06] LABS: POC Glucose,Bedside 181 (70-110)
[2021-04-13 21:27] LABS: POC Glucose,Bedside 187 (70-110)
--- NOTE | 2021-04-13 21:52 | PC.NURSE ---
trash pulled and snack passed at this time
[2021-04-14] VITALS (7 sets, daily range): BP systolic 138–172; BP diastolic 76–97; PULSE 75–119; RESP 18–22; TEMP 36.4–37.2; O2SAT 90–97; BMI 36.4
--- NOTE | 2021-04-14 05:00 | PC.NURSE ---
shift summary pt is alert and oriented X4. pts lung sounds are clear. pt voids per urinal, but is able to ambulate to bathroom unassisted. pt has requested pain meds 3 times during shift which relieved the pts pain. pt denies any nausea or vomiting. no acute changes will continue to monitor.
--- NOTE | 2021-04-14 05:35 | PC.NURSE ---
ice water passed and trash pulled at this time
[2021-04-14 05:42] LABS: POC Glucose,Bedside 152 (70-110)
[2021-04-14 06:21] LABS: Basophils % 0.4 % (0.1-2.0); Eosinophils % 0.8 % (0.1-12.0); Hematocrit 42.4 % (42.0-52.0); Hemoglobin 14.3 g/dL (14.1-18.0); Lymphocytes # 0.9 K/mm3 (0.7-4.5); Mean Corpuscular HGB Conc 33.8 g/dL (31.8-35.4); Mean Corpuscular Hemoglobin 27.9 pg (27.0-31.2); Mean Corpuscular Volume 82.7 fl (80-94); Mean Platelet Volume 10.6 fl (7.4-10.4); Monocytes # 0.3 K/mm3 (0.1-1.0); Neutrophils # 4.6 K/mm3 (1.8-7.8); Neutrophils % 78.8 % (37.0-80.0); Platelet Count 117 K/mm3 (142-424); Red Blood Count 5.13 M/mm3 (4.60-6.20); Red Cell Distribution Width 14.7 % (11.5-17.5); White Blood Count 5.8 K/mm3 (4.8-10.8)
[2021-04-14 06:24] LABS: Chloride 104 mmol/L (98-107)
[2021-04-14 06:25] LABS: Potassium 3.6 mmoL/L (3.5-5.1); Sodium 136 mmol/L (136-145)
[2021-04-14 06:27] LABS: Alanine Aminotransferase 60 U/L (12-78); Alkaline Phosphatase 73 U/L (38-126); Aspartate Amino Transferase 52 U/L (17-59); Blood Urea Nitrogen 23 mg/dl (9-20); Creatinine Clearance Estimated 88 mL/min (50-200); Estimated Glomerular Filt Rate 51 ml/min (>60); GFR (African American) 62 ML/MIN (>60)
[2021-04-14 06:28] LABS: Albumin Level 3.5 g/dl (3.5-5.0); Albumin/Globulin Ratio 1.2 (1.1-1.8); Anion Gap 13.6 mEq/L (5-15); Calcium 8.8 mg/dl (8.4-10.2); Carbon Dioxide 22 mmol/L (22.0-30.0); Globulin 2.9 g/dL (1.3-3.2); Glucose 181 mg/dl (74-100); Total Protein,Serum 6.4 g/dl (6.3-8.2)
--- NOTE | 2021-04-14 06:35 | HMH.ACPN2 ---
Internal Medicine - PN: Subj *Date: 04/14/21 *Time: 08:28 Interval history: Mr. Fitch has continued to have significant pain in abdomen overnight. No nilo emesis, but having occasional nausea. Making more urine, having multiple BMs. Reviewed labs. Improved kidney function on labs this morning. Electrolytes stable. Blood pressure improved. Remains tachycardic however, suspect secondary to pain. Currently has clear liquid diet ordered, no significant worsening of pain with p.o. intake. Remains afebrile. Stable on room air. Alert and oriented. Exam Vital signs and Labs for Last 24 Hours: Temp Pulse Resp BP Pulse Ox 98.9 F 119 H 18 140/79 93 L 04/14/21 04:00 04/14/21 04:00 04/14/21 04:00 04/14/21 04:00 04/14/21 04:00 Laboratory Results - last 24 hr 04/13/21 05:10: Triglycerides > 1575 H, Cholesterol 261 H, LDL Cholesterol Direct < 30.00 L, HDL Cholesterol 15 L, Cholesterol/HDL Ratio 17.4 H 04/13/21 07:53: Urine Eosinophils Absent 04/13/21 07:53: Urine Color [place], Urine Appearance Sl cloudy, Urine pH 5.0, Ur Specific [place] >= 1.030, Urine Protein 1+, Urine Glucose (UA) 3+, Urine Ketones Negative, Urine Blood 1+, Urine Nitrate Negative, Urine Bilirubin 1+ A, Urine Urobilinogen 0.2, Ur Leukocyte Esterase Negative, Urine RBC 5-10, Urine WBC 3-5, Ur Squamous Epith Cells Occasional, Urine Bacteria Trace 04/13/21 11:28: POC Glucose 195 H 04/13/21 15:48: Sodium 134 L, Potassium 3.7 D, Chloride 106, Carbon Dioxide 18 L, Anion Gap 13.7, BUN 27 H, Creatinine 1.80 H D, Estimated Creat Clear 72, Estimated GFR 41 L, Est GFR ( Amer) 50 L D, Glucose 269 H D, Calcium 8.4 04/13/21 16:59: POC Glucose 181 H 04/13/21 21:16: POC Glucose 187 H 04/14/21 05:20: POC Glucose 152 H 04/14/21 06:06: WBC 5.8 D, RBC 5.13, Hgb 14.3, Hct 42.4, MCV 82.7, MCH 27.9, MCHC 33.8, RDW 14.7, Plt Count 117 L, MPV 10.6 H, Neut % (Auto) 78.8, Lymph % (Auto) 15.0, [place] % (Auto) 5.0, Eos % (Auto) 0.8, Baso % (Auto) 0.4, Neut # (Auto) 4.6, Lymph # (Auto) 0.9, [place] # (Auto) 0.3, Eos # (Auto) 0.0, Baso # (Auto) 0.0 04/14/21 06:06: Sodium 136, Potassium 3.6, Chloride 104, Carbon Dioxide 22 D, Anion Gap 13.6, BUN 23 H, Creatinine 1.50 H, Estimated Creat Clear 88, Estimated GFR 51 L, Est GFR ( Amer) 62 D, Glucose 181 H D, Calcium 8.8, Total Bilirubin 1.0, AST 52 D, ALT 60 D, Alkaline Phosphatase 73, Total Protein 6.4, Albumin 3.5, Globulin 2.9, Albumin/Globulin Ratio 1.2 I & O for Last 24 hours: Intake & Output 04/11/21 04/12/21 04/13/21 04/14/21 23:59 23:59 23:59 23:59 Intake Total 1450 / 1450 6904 / 6904 6974 / 7094 120 / 120 Output Total 900 / 900 1925 / 2125 700 / 700 Balance 1450 / 1450 6004 / 6004 5049 / 4969 -580 / -580 Weight 97.069 kg 96.757 kg 96.7 kg 99.337 kg Microbiology Reports for the Last 24 Hours: Microbiology 04/12/21 09:30 Urine,Clean Catch Urine Culture - Preliminary NO GROWTH AFTER 24 HOURS - Constitutional mild distress, obese - *Routine HEENT Exam Head: Present: normocephalic Eye: Present: EOMI, PERRL ENT: Present: mucous membranes moist - *Routine Neck Exam Present: supple. Absent: lymphadenopathy - *Routine Respiratory Exam Present: CTA bilaterally - *Routine Cardiovascular Exam Present: Normal S1, tachycardia. Absent: murmur - *Routine Abdominal Exam Present: soft, normoactive bowel sounds, tenderness (Diffuse, worse in left upper quadrant however.) - *Routine Extremities Exam Absent: cyanosis, clubbing, edema - *Routine Skin Exam Present: warm. Absent: rash - *Routine Neurological Exam Present: alert, oriented X3 Assessment and Plan (1) DKA, type 2, not at goal Status: Acute Category: Medical Code(s): E11.10 - Type 2 diabetes mellitus with ketoacidosis without coma (2) Hyperkalemia Status: Acute Category: Medical Code(s): E87.5 - Hyperkalemia (3) Acute kidney injury Status: Acute Category: Medical Code(s): N17.9 - Acu
[2021-04-14 07:06] LABS: Hemoglobin A1C 9.2 % (4.0-6.0)
[2021-04-14 11:18] LABS: POC Glucose,Bedside 193 (70-110)
--- NOTE | 2021-04-14 16:28 | PC.NURSE ---
Pt has been pleasant and cooperative this shift. A&O X4. Pt has had frequent complaints of abdominal pain and has been medicated with Percocet + Dilaudid per MAR with favorable results. Pt is on room air with sats. >90%. O2 @ 2 LPM via NC is available at bedside PRN. Pt occasionally de-sats. when sleeping. Lungs CTA. No edema noted. Skin is C/D/I. Pt ambulates independently to/from the bathroom and throughout the room. Pt also sat up in the recliner for a few hours. Pt voids clear,dark-yellow urine without issue. No BM thus far today. 20 G peripheral IV in the RT AC is patent and SL. 20 G peripheral IV in the LT AC is patent and SL. 18 G peripheral IV in the RT hand is patent and infusing LR @ 150 ML/HR. FSBS results have been 193 and 247, both of which have required insulin coverage per MAR. VSS. Call light within reach. Will continue to monitor.
[2021-04-14 16:32] LABS: POC Glucose,Bedside 247 (70-110)
[2021-04-14 20:55] LABS: POC Glucose,Bedside 235 (70-110)
[2021-04-15] VITALS (7 sets, daily range): BP systolic 134–176; BP diastolic 72–95; PULSE 89–109; RESP 16–21; TEMP 36.6–37.7; O2SAT 89–98; BMI 36.4
--- NOTE | 2021-04-15 04:29 | PC.NURSE ---
Patient is alert and oriented. Patient had complaints of pain around midnight. Patient was given 1 tablet of percocet and rested for a little bit. Patient began having complaints of sweating. Checked patient's vitals and blood sugar and all where within normal range. Patient did have a low grade fever of 99.9 at around 0100. At around 0400 patient rated his pain at 7 and was given dilaudid per MAR. Patient was given a fan and turned on low and osculating, patient has been wearing oxygen at 2L NC throughout the night. Patient's call light is within reach, bed in lowest position.
[2021-04-15 07:36] LABS: Basophils % 0.5 % (0.1-2.0); Eosinophils # 0.1 K/mm3 (0.0-0.4); Eosinophils % 1.7 % (0.1-12.0); Hematocrit 36.3 % (42.0-52.0); Hemoglobin 12.5 g/dL (14.1-18.0); Lymphocytes # 1.1 K/mm3 (0.7-4.5); Lymphocytes % 16.9 % (10-50); Mean Corpuscular HGB Conc 34.4 g/dL (31.8-35.4); Mean Corpuscular Hemoglobin 28.5 pg (27.0-31.2); Mean Corpuscular Volume 82.8 fl (80-94); Mean Platelet Volume 10.3 fl (7.4-10.4); Monocytes # 0.5 K/mm3 (0.1-1.0); Monocytes % 8.7 % (1.7-9.3); Neutrophils # 4.5 K/mm3 (1.8-7.8); Neutrophils % 72.2 % (37.0-80.0); Platelet Count 86 K/mm3 (142-424); Red Blood Count 4.39 M/mm3 (4.60-6.20); Red Cell Distribution Width 14.5 % (11.5-17.5); White Blood Count 6.2 K/mm3 (4.8-10.8)
[2021-04-15 07:40] LABS: Chloride 102 mmol/L (98-107)
[2021-04-15 07:41] LABS: Potassium 3.2 mmoL/L (3.5-5.1); Sodium 137 mmol/L (136-145)
[2021-04-15 07:43] LABS: Alanine Aminotransferase 41 U/L (12-78); Alkaline Phosphatase 77 U/L (38-126); Anion Gap 11.2 mEq/L (5-15); Aspartate Amino Transferase 31 U/L (17-59); Bilirubin,Total 0.8 mg/dl (0.2-1.3); Blood Urea Nitrogen 15 mg/dl (9-20); Calcium 9.5 mg/dl (8.4-10.2); Carbon Dioxide 27 mmol/L (22.0-30.0); Creatinine Clearance Estimated 110 mL/min (50-200); Estimated Glomerular Filt Rate 66 ml/min (>60); GFR (African American) 80 ML/MIN (>60); Glucose 160 mg/dl (74-100)
[2021-04-15 07:44] LABS: Albumin Level 3.3 g/dl (3.5-5.0); Albumin/Globulin Ratio 1.2 (1.1-1.8); Globulin 2.8 g/dL (1.3-3.2); Magnesium 1.8 mg/dl (1.6-2.3); Total Protein,Serum 6.1 g/dl (6.3-8.2)
--- NOTE | 2021-04-15 08:05 | HMH.ACPN2 ---
Internal Medicine - PN: Subj *Date: 04/15/21 *Time: 08:05 Interval history: Overall patient feels better, sitting up in a chair, tolerated clear liquids without pain although he felt bloated. Exam Vital signs and Labs for Last 24 Hours: Temp Pulse Resp BP Pulse Ox 98.6 F 89 16 176/95 H 98 04/15/21 07:36 04/15/21 07:36 04/15/21 07:36 04/15/21 07:36 04/15/21 07:36 Laboratory Results - last 24 hr 04/14/21 11:07: POC Glucose 193 H 04/14/21 16:18: POC Glucose 247 H 04/14/21 20:13: POC Glucose 235 H 04/15/21 07:29: WBC 6.2, RBC 4.39 L, Hgb 12.5 L, Hct 36.3 L, MCV 82.8, MCH 28.5, MCHC 34.4, RDW 14.5, Plt Count 86 L D, MPV 10.3, Neut % (Auto) 72.2, Lymph % (Auto) 16.9, [place] % (Auto) 8.7, Eos % (Auto) 1.7, Baso % (Auto) 0.5, Neut # (Auto) 4.5, Lymph # (Auto) 1.1, [place] # (Auto) 0.5, Eos # (Auto) 0.1, Baso # (Auto) 0.0 04/15/21 07:29: Sodium 137, Potassium 3.2 L, Chloride 102, Carbon Dioxide 27 D, Anion Gap 11.2, BUN 15 D, Creatinine 1.20, Estimated Creat Clear 110, Estimated GFR 66, Est GFR ( Amer) 80 D, Glucose 160 H, Calcium 9.5, Magnesium 1.8, Total Bilirubin 0.8, AST 31 D, ALT 41 D, Alkaline Phosphatase 77, Total Protein 6.1 L, Albumin 3.3 L, Globulin 2.8, Albumin/Globulin Ratio 1.2 I & O for Last 24 hours: Intake & Output 04/12/21 04/13/21 04/14/21 04/15/21 11:59 11:59 11:59 11:59 Intake Total 2150 / 2150 8969 / 9653 4689 / 4689 4348 / 4348 Output Total 250 / 250 1050 / 1050 2725 / 2725 1225 / 1225 Balance 1900 / 1900 7919 / 8603 1963 / 1963 3123 / 3123 Weight 213 lb 5 oz 213 lb 5.003 oz 219 lb 218 lb 15.974 oz Microbiology Reports for the Last 24 Hours: Microbiology 04/12/21 09:30 Urine,Clean Catch Urine Culture - Final NO GROWTH AFTER 48 HOURS 04/12/21 09:30 Blood Blood Culture - Preliminary NO GROWTH AFTER 48 HOURS 04/12/21 09:30 Blood Blood Culture - Preliminary NO GROWTH AFTER 48 HOURS - Constitutional no acute distress - *Routine HEENT Exam Head: Present: normocephalic Eye: Present: EOMI, PERRL ENT: Present: mucous membranes moist - *Routine Neck Exam Present: supple. Absent: lymphadenopathy - *Routine Respiratory Exam Present: CTA bilaterally - *Routine Cardiovascular Exam Present: RRR - *Routine Abdominal Exam Present: soft, normoactive bowel sounds, tenderness (Very minimal epigastric tenderness) - *Routine Extremities Exam Absent: cyanosis, clubbing, edema - *Routine Skin Exam Present: warm. Absent: rash - *Routine Neurological Exam Present: alert, oriented X3 Assessment and Plan (1) DKA, type 2, not at goal Status: Acute Category: Medical Code(s): E11.10 - Type 2 diabetes mellitus with ketoacidosis without coma (2) Hyperkalemia Status: Acute Category: Medical Code(s): E87.5 - Hyperkalemia (3) Acute kidney injury Status: Acute Category: Medical Code(s): N17.9 - Acute kidney failure, unspecified (4) Pancreatitis Status: Acute Qualifiers: Chronicity: acute Pancreatitis type: other Acute pancreatitis complication: no infection or necrosis Qualified Code(s): K85.80 - Other acute pancreatitis without necrosis or infection Category: Medical Code(s): K85.90 - Acute pancreatitis without necrosis or infection, unspecified (5) Hypertriglyceridemia Status: Chronic Category: Medical Code(s): E78.1 - Pure hyperglyceridemia (6) Type 2 diabetes mellitus Status: Chronic Qualifiers: Category: Medical Code(s): E11.9 - Type 2 diabetes mellitus without complications (7) Class 2 obesity Status: Chronic Category: Medical Code(s): E66.9 - Obesity, unspecified (8) Polycythemia Status: Acute Category: Medical Code(s): D75.1 - Secondary polycythemia (9) Hyperlipidemia associated with type 2 diabetes mellitus Status: Chronic Category: Medical Code(s): E11.69 - Type 2 diabetes mellitus with
[2021-04-15 11:46] LABS: POC Glucose,Bedside 177 (70-110)
--- NOTE | 2021-04-15 14:27 | DIET.NUTRFU ---
Pt tolerated clear liquids, did report some distention but no N/V. Diet advanced to full liquids for lunch today, to advance to ADA/low fat as tolerated. BG avg. 190, weight stable. Pt does admit to limited adherence with his nutrition recommendations for very low fat carb consistent diet while on vacation prior to admission. He states he had fried fish and red meat and symptoms started shortly after. However he states that prior to this he has been following nutrition recommendations at home. Of note he did have a slight drop in A1C since last admission from 9.8 to 9.2, likely rt dietary changes. Pt has been provided with diet education/counseling on low fat diet for recurrent pancreatitis and carb consistent diet for DM and strongly encouraged to f/u as outpatient.
--- NOTE | 2021-04-15 15:46 | PC.NURSE ---
Pt has been pleasant and cooperative this shift. A&O X4. Pt has had a few complaints of abdominal pain that is well managed with Dilaudid + Percocet per MAR. Pt is on room air with sats. >90%. O2 @ 2 LPM via NC is available at bedside PRN, although it has not been in use thus far today. Lungs CTA. No edema noted. Skin is C/D/I. Pt ambulates independently to/from the bathroom and throughout the room. Pt has sat up in the recliner several times this shift. Pt is currently receiving full liquids and is tolerating well with no nausea or vomiting. Abdomen is large, round, soft, and non-tender. Pt voids clear, dark-yellow urine without issue. 4 small, loose, brown stools today. 20 G peripheral IV in the RT AC is patent and SL. 20 G peripheral IV in the LT AC is patent and SL. 18 G peripheral IV in the RT hand is patent and infusing LR @ 150 ML/HR. FSBS results have been 177 and 195, both of which have required insulin coverage per MAR. VSS. Call light within reach. Will continue to monitor.
--- NOTE | 2021-04-15 15:55 | HMH.ACPN ---
Internal Medicine - PN: Subj *Date: 04/15/21 *Time: 15:55 Exam Vital signs and Labs for Last 24 Hours: Temp Pulse Resp BP Pulse Ox 97.8 F 99 H 17 134/90 95 04/15/21 15:20 04/15/21 15:20 04/15/21 15:20 04/15/21 15:20 04/15/21 15:20 Laboratory Results - last 24 hr 04/14/21 16:18: POC Glucose 247 H 04/14/21 20:13: POC Glucose 235 H 04/15/21 07:29: WBC 6.2, RBC 4.39 L, Hgb 12.5 L, Hct 36.3 L, MCV 82.8, MCH 28.5, MCHC 34.4, RDW 14.5, Plt Count 86 L D, MPV 10.3, Neut % (Auto) 72.2, Lymph % (Auto) 16.9, [place] % (Auto) 8.7, Eos % (Auto) 1.7, Baso % (Auto) 0.5, Neut # (Auto) 4.5, Lymph # (Auto) 1.1, [place] # (Auto) 0.5, Eos # (Auto) 0.1, Baso # (Auto) 0.0 04/15/21 07:29: Sodium 137, Potassium 3.2 L, Chloride 102, Carbon Dioxide 27 D, Anion Gap 11.2, BUN 15 D, Creatinine 1.20, Estimated Creat Clear 110, Estimated GFR 66, Est GFR ( Amer) 80 D, Glucose 160 H, Calcium 9.5, Magnesium 1.8, Total Bilirubin 0.8, AST 31 D, ALT 41 D, Alkaline Phosphatase 77, Total Protein 6.1 L, Albumin 3.3 L, Globulin 2.8, Albumin/Globulin Ratio 1.2 04/15/21 11:36: POC Glucose 177 H I & O for Last 24 hours: Intake & Output 04/12/21 04/13/21 04/14/21 04/15/21 23:59 23:59 23:59 23:59 Intake Total 6904 / 6904 6974 / 7094 2724 / 2724 2824 / 2824 Output Total 900 / 900 1925 / 2125 2200 / 2200 225 / 225 Balance 6004 / 6004 5049 / 4969 524 / 524 2599 / 2599 Weight 96.757 kg 96.7 kg 99.337 kg 99.336 kg Assessment and Plan (1) DKA, type 2, not at goal Status: Acute Category: Medical Code(s): E11.10 - Type 2 diabetes mellitus with ketoacidosis without coma (2) Hyperkalemia Status: Acute Category: Medical Code(s): E87.5 - Hyperkalemia (3) Acute kidney injury Status: Acute Category: Medical Code(s): N17.9 - Acute kidney failure, unspecified (4) Pancreatitis Status: Acute Qualifiers: Chronicity: acute Pancreatitis type: other Acute pancreatitis complication: no infection or necrosis Qualified Code(s): K85.80 - Other acute pancreatitis without necrosis or infection Category: Medical Code(s): K85.90 - Acute pancreatitis without necrosis or infection, unspecified (5) Hypertriglyceridemia Status: Chronic Category: Medical Code(s): E78.1 - Pure hyperglyceridemia (6) Type 2 diabetes mellitus Status: Chronic Qualifiers: Category: Medical Code(s): E11.9 - Type 2 diabetes mellitus without complications (7) Class 2 obesity Status: Chronic Category: Medical Code(s): E66.9 - Obesity, unspecified (8) Polycythemia Status: Acute Category: Medical Code(s): D75.1 - Secondary polycythemia (9) Hyperlipidemia associated with type 2 diabetes mellitus Status: Chronic Category: Medical Code(s): E11.69 - Type 2 diabetes mellitus with other specified complication; E78.5 - Hyperlipidemia, unspecified (10) Hypertension Status: Chronic Qualifiers: Hypertension type: essential hypertension Qualified Code(s): I10 - Essential (primary) hypertension Category: Medical Code(s): I10 - Essential (primary) hypertension The patient's infection will respond to the chosen ABx?: Yes Is the patient receiving the right drug, dose, and route?: Yes Could a more targeted ABx be ordered?: No (WBC TRENDED DOWN. CURRENT CURRENT ABX.)
[2021-04-15 20:40] LABS: POC Glucose,Bedside 215 (70-110)
[2021-04-16] VITALS (7 sets, daily range): BP systolic 139–163; BP diastolic 78–97; PULSE 79–98; RESP 17–20; TEMP 36.9–38.1; O2SAT 94–97; BMI 40.0
--- NOTE | 2021-04-16 03:02 | PC.NURSE ---
A&OX4. PT TOLERATING RA AT TIMES, APPLIES 2LNC SOME T/O NIGHT. PT HAS COMPLAINED OF INTERMITTENT ABD PAIN T/O SHIFT. TX WITH PRN MEDS PER DEC. ON REASSESSMENT PT RESTING IN BED. PT HAS BEEN RESTLESS AND SEEMED UNCOMFORTABLE T/O SHIFT. PT UP INDEPENDENTLY IN ROOM. VSS WILL CONTINUE TO MONITOR.
--- NOTE | 2021-04-16 04:41 | PC.NURSE ---
TEMP OF 100.6 @ 0400. ACTIVE COOLING MEASURES IN PLACE. TEMP 99.5 @ 0442. WILL CONTINUE TO MONITOR.
[2021-04-16 05:00] LABS: POC Glucose,Bedside 189 (70-110)
[2021-04-16 06:46] LABS: Basophils % 0.5 % (0.1-2.0); Eosinophils # 0.1 K/mm3 (0.0-0.4); Eosinophils % 1.3 % (0.1-12.0); Hematocrit 37.1 % (42.0-52.0); Hemoglobin 12.2 g/dL (14.1-18.0); Lymphocytes % 16.2 % (10-50); Mean Corpuscular Hemoglobin 27.7 pg (27.0-31.2); Mean Corpuscular Volume 84.1 fl (80-94); Mean Platelet Volume 10.6 fl (7.4-10.4); Monocytes # 0.6 K/mm3 (0.1-1.0); Monocytes % 10.4 % (1.7-9.3); Neutrophils # 4.4 K/mm3 (1.8-7.8); Neutrophils % 71.6 % (37.0-80.0); Platelet Count 87 K/mm3 (142-424); Red Blood Count 4.41 M/mm3 (4.60-6.20); Red Cell Distribution Width 14.5 % (11.5-17.5); White Blood Count 6.1 K/mm3 (4.8-10.8)
[2021-04-16 06:49] LABS: Chloride 100 mmol/L (98-107); Sodium 138 mmol/L (136-145)
[2021-04-16 06:52] LABS: Alanine Aminotransferase 33 U/L (12-78); Albumin Level 3.3 g/dl (3.5-5.0); Alkaline Phosphatase 76 U/L (38-126); Anion Gap 10.9 mEq/L (5-15); Aspartate Amino Transferase 26 U/L (17-59); Bilirubin,Total 0.6 mg/dl (0.2-1.3); Blood Urea Nitrogen 11 mg/dl (9-20); Carbon Dioxide 30 mmol/L (22.0-30.0); Creatinine Clearance Estimated 79 mL/min (50-200); Estimated Glomerular Filt Rate 81 ml/min (>60); GFR (African American) 98 ML/MIN (>60); Glucose 161 mg/dl (74-100)
[2021-04-16 06:53] LABS: Albumin/Globulin Ratio 1.2 (1.1-1.8); Globulin 2.8 g/dL (1.3-3.2); Total Protein,Serum 6.1 g/dl (6.3-8.2)
[2021-04-16 07:02] LABS: Potassium 2.9 mmoL/L (3.5-5.1)
--- NOTE | 2021-04-16 07:22 | PC.NURSE ---
CRITICAL RECEIVED. NAME, CONFIRMED WITH LAB. NOTIFIED.
--- NOTE | 2021-04-16 07:38 | PC.NURSE ---
WILL HOLD KAYEXALATE THIS AM R/T PT K+ LEVEL.
--- NOTE | 2021-04-16 07:58 | HMH.ACPN2 ---
Internal Medicine - PN: Subj *Date: 04/16/21 *Time: 09:38 Interval history: Continues to have pain overnight. Ate very little overnight however has been tolerating full liquid diet with meals yesterday. Also developed slight fever that is resolved this morning. Remains mildly tachycardic with hemodynamic stability. No shortness of breath, nausea, vomiting, diarrhea. Reviewed labs this morning. Potassium low. Otherwise doing better. Exam Vital signs and Labs for Last 24 Hours: Temp Pulse Resp BP Pulse Ox 97.9 F 98 H 19 163/95 H 97 04/16/21 07:43 04/16/21 07:43 04/16/21 07:43 04/16/21 07:43 04/16/21 07:43 Laboratory Results - last 24 hr 04/15/21 11:36: POC Glucose 177 H 04/15/21 20:00: POC Glucose 215 H 04/16/21 04:52: POC Glucose 189 H 04/16/21 06:38: WBC 6.1, RBC 4.41 L, Hgb 12.2 L, Hct 37.1 L, MCV 84.1, MCH 27.7, MCHC 33.0, RDW 14.5, Plt Count 87 L, MPV 10.6 H, Neut % (Auto) 71.6, Lymph % (Auto) 16.2, [place] % (Auto) 10.4 H, Eos % (Auto) 1.3, Baso % (Auto) 0.5, Neut # (Auto) 4.4, Lymph # (Auto) 1.0, [place] # (Auto) 0.6, Eos # (Auto) 0.1, Baso # (Auto) 0.0 04/16/21 06:38: Sodium 138, Potassium 2.9 L*, Chloride 100, Carbon Dioxide 30, Anion Gap 10.9, BUN 11 D, Creatinine 1.00, Estimated Creat Clear 79, Estimated GFR 81, Est GFR ( Amer) 98 D, Glucose 161 H, Calcium 10.0, Total Bilirubin 0.6, AST 26, ALT 33, Alkaline Phosphatase 76, Total Protein 6.1 L, Albumin 3.3 L, Globulin 2.8, Albumin/Globulin Ratio 1.2 I & O for Last 24 hours: Intake & Output 04/13/21 04/14/21 04/15/21 04/16/21 23:59 23:59 23:59 23:59 Intake Total 6974 / 7094 2724 / 2724 4208 / 4208 1592 / 1592 Output Total 1925 / 2125 2200 / 2200 225 / 225 0 / 0 Balance 5049 / 4969 524 / 524 3983 / 3983 1592 / 1592 Weight 96.7 kg 99.337 kg 99.336 kg 108.976 kg Narrative: - Constitutional mild distress, obese - *Routine HEENT Exam Head: Present: normocephalic Eye: Present: EOMI, PERRL ENT: Present: mucous membranes moist - *Routine Neck Exam Present: supple. Absent: lymphadenopathy - *Routine Respiratory Exam Present: CTA bilaterally - *Routine Cardiovascular Exam Present: Normal S1, tachycardia. Absent: murmur - *Routine Abdominal Exam Present: soft, normoactive bowel sounds, tenderness (Diffuse, worse in left upper quadrant however.) - *Routine Extremities Exam Absent: cyanosis, clubbing, edema - *Routine Skin Exam Present: warm. Absent: rash - *Routine Neurological Exam Present: alert, oriented X3 Assessment and Plan (1) DKA, type 2, not at goal Status: Acute Category: Medical Code(s): E11.10 - Type 2 diabetes mellitus with ketoacidosis without coma (2) Hyperkalemia Status: Acute Category: Medical Code(s): E87.5 - Hyperkalemia (3) Acute kidney injury Status: Acute Category: Medical Code(s): N17.9 - Acute kidney failure, unspecified (4) Pancreatitis Status: Acute Qualifiers: Chronicity: acute Pancreatitis type: other Acute pancreatitis complication: no infection or necrosis Qualified Code(s): K85.80 - Other acute pancreatitis without necrosis or infection Category: Medical Code(s): K85.90 - Acute pancreatitis without necrosis or infection, unspecified (5) Hypertriglyceridemia Status: Chronic Category: Medical Code(s): E78.1 - Pure hyperglyceridemia (6) Type 2 diabetes mellitus Status: Chronic Qualifiers: Category: Medical Code(s): E11.9 - Type 2 diabetes mellitus without complications (7) Class 2 obesity Status: Chronic Category: Medical Code(s): E66.9 - Obesity, unspecified (8) Polycythemia Status: Acute Category: Medical Code(s): D75.1 - Secondary polycythemia (9) Hyperlipidemia associated with type 2 diabetes mellitus Status: Chronic Category: Medical Code(s): E11.69 - Type 2 diabetes mellitus with other specified complication; E78.5 - Hyperlipidemia, unspecified (10) Hypertension Status: Chronic Qualifiers
[2021-04-16 11:17] LABS: POC Glucose,Bedside 195 (70-110)
[2021-04-16 11:17] LABS: POC Glucose,Bedside 127 (70-110)
[2021-04-16 11:17] LABS: POC Glucose,Bedside 149 (70-110)
[2021-04-16 11:44] LABS: POC Glucose,Bedside 203 (70-110)
--- NOTE | 2021-04-16 18:44 | PC.NURSE ---
HE IS AOX4, HAS BEEN UP TO CHAIR FOR MOST OF SHIFT, HAS REQUESTED PAIN MEDS AT REGULAR INTERVALS. HAS TOLERATED DIET WELL.
[2021-04-16 20:19] LABS: POC Glucose,Bedside 166 (70-110)
[2021-04-16 20:19] LABS: POC Glucose,Bedside 236 (70-110)
[2021-04-17 05:00] VITALS: BMI 40.0
--- NOTE | 2021-04-17 05:15 | PC.NURSE ---
PT. C/O LUQ PAIN X3; PT. REQUESTED BOTH PERCOCET AND DILAUDID DURING THE NIGHT. NO C/O N/V/D, DIZZINESS OR SOA. ABD DISTENDED WITH TENDERNESS TO LUQ. TOLERATING FLD WELL.
[2021-04-17 05:49] LABS: POC Glucose,Bedside 134 (70-110)
[2021-04-17 06:16] VITALS: BP 154/86; PULSE 89; RESP 18; TEMP 37.3; O2SAT 95
[2021-04-17 06:29] LABS: Basophils % 0.4 % (0.1-2.0); Eosinophils # 0.1 K/mm3 (0.0-0.4); Eosinophils % 1.7 % (0.1-12.0); Hemoglobin 11.9 g/dL (14.1-18.0); Lymphocytes # 1.2 K/mm3 (0.7-4.5); Lymphocytes % 17.4 % (10-50); Mean Corpuscular HGB Conc 33.9 g/dL (31.8-35.4); Mean Corpuscular Hemoglobin 27.8 pg (27.0-31.2); Mean Platelet Volume 10.3 fl (7.4-10.4); Monocytes # 0.7 K/mm3 (0.1-1.0); Monocytes % 10.3 % (1.7-9.3); Neutrophils # 4.8 K/mm3 (1.8-7.8); Neutrophils % 70.2 % (37.0-80.0); Platelet Count 107 K/mm3 (142-424); Red Blood Count 4.28 M/mm3 (4.60-6.20); Red Cell Distribution Width 14.2 % (11.5-17.5); White Blood Count 6.8 K/mm3 (4.8-10.8)
[2021-04-17 06:35] LABS: Chloride 98 mmol/L (98-107); Sodium 138 mmol/L (136-145)
[2021-04-17 06:37] LABS: Alanine Aminotransferase 25 U/L (12-78); Alkaline Phosphatase 70 U/L (38-126); Aspartate Amino Transferase 21 U/L (17-59); Bilirubin,Total 0.6 mg/dl (0.2-1.3); Blood Urea Nitrogen 11 mg/dl (9-20); Creatinine Clearance Estimated 88 mL/min (50-200); Estimated Glomerular Filt Rate 92 ml/min (>60); GFR (African American) 111 ML/MIN (>60)
[2021-04-17 06:38] LABS: Albumin Level 3.1 g/dl (3.5-5.0); Albumin/Globulin Ratio 1.1 (1.1-1.8); Anion Gap 9.9 mEq/L (5-15); Calcium 10.1 mg/dl (8.4-10.2); Carbon Dioxide 33 mmol/L (22.0-30.0); Globulin 2.7 g/dL (1.3-3.2); Glucose 156 mg/dl (74-100); HDL Cholesterol 13 mg/dl (40-60); Magnesium 1.7 mg/dl (1.6-2.3); Total Protein,Serum 5.8 g/dl (6.3-8.2)
[2021-04-17 06:54] LABS: Chol/HDL Ratio 10.2 (1-3.5); Cholesterol 132 mg/dl (140-200); Triglycerides 275 mg/dl (30-150); VLDL Cholesterol 55 mg/dL (0-40)
[2021-04-17 06:57] LABS: Potassium 2.9 mmoL/L (3.5-5.1)
[2021-04-17 08:00] VITALS: BP 140/90; PULSE 101; RESP 17; TEMP 37.3; O2SAT 94
--- NOTE | 2021-04-17 08:35 | HMH.DCSUM ---
General - General Admission date:: 04/11/21 Discharge date: 04/17/21 HPI HPI: 45-year-old white male with history of insulin requiring type 2 diabetes, severe hyperlipidemia that has caused pancreatitis in the past, and hypertension who presented to the emergency department with 24 hours of gnawing, intractable and worsening epigastric pain. He endorses a recent trip to the beach where he had some significant dietary lapses and about 2 days after he got back had this pain onset. In the emergency department was found to be ketotic, acetone in his system, significant hyperlipidemia, evidence of pancreatitis both biochemically and radiographically and was admitted to hospital. Hospital Course Hospital Course: 45-year-old male with difficult to control diabetes, hypertriglyceridemia, recurrent pancreatitis. Initially presented with DKA, hypertriglyceridemia induced pancreatitis, significant abdominal pain. Initiated on insulin drip for both triglycerides and diabetes. Gradually improved on this regimen with ability to wean off drip and transition to basal bolus regimen. Patient continued to have significant abdominal pain and require IV fluid resuscitation due to severity of pancreatitis. Gradually advance diet over the course of week with gradual titration of basal insulin also. Increased Lantus to 30 units nightly. Continued with sliding scale mealtime. Patient's triglycerides drastically improved with levels less than 300 by time of discharge. Plan for close follow-up in the outpatient setting to continue to address diabetes management and hypertriglyceridemia management. Medically stable for discharge home. Examined on day of discharge MALOU resolved with fluid resuscitation Hyperkalemia resolved with treatment Objective Vital signs: Temp Pulse Resp BP Pulse Ox 99.1 F 101 H 17 140/90 94 L 04/17/21 08:00 04/17/21 08:00 04/17/21 08:00 04/17/21 08:00 04/17/21 08:00 Narrative: - Constitutional minimal distress, obese - *Routine HEENT Exam Head: Present: normocephalic Eye: Present: EOMI, PERRL ENT: Present: mucous membranes moist - *Routine Neck Exam Present: supple. Absent: lymphadenopathy - *Routine Respiratory Exam Present: CTA bilaterally - *Routine Cardiovascular Exam Present: Normal S1, tachycardia. Absent: murmur - *Routine Abdominal Exam Present: soft, normoactive bowel sounds, intervally improved tenderness (left upper quadrant) - *Routine Extremities Exam Absent: cyanosis, clubbing, edema - *Routine Skin Exam Present: warm. Absent: rash - *Routine Neurological Exam Present: alert, oriented X3 Results Labs on day of discharge: Labs from last 24 hours 04/17/21 04/17/21 04/17/21 06:17 06:17 05:42 WBC 6.8 RBC 4.28 L Hgb 11.9 L Hct 35.0 L MCV 82.0 MCH 27.8 MCHC 33.9 RDW 14.2 Plt Count 107 L MPV 10.3 Neut % (Auto) 70.2 Lymph % (Auto) 17.4 [place] % (Auto) 10.3 H Eos % (Auto) 1.7 Baso % (Auto) 0.4 Neut # (Auto) 4.8 Lymph # (Auto) 1.2 [place] # (Auto) 0.7 Eos # (Auto) 0.1 Baso # (Auto) 0.0 Sodium 138 Potassium 2.9 L* Chloride 98 Carbon Dioxide 33 H Anion Gap 9.9 BUN 11 Creatinine 0.90 Estimated Creat Clear 88 Estimated GFR 92 Est GFR ( Amer) 111 Glucose 156 H POC Glucose 134 H Calcium 10.1 Magnesium 1.7 Total Bilirubin 0.6 AST 21 ALT 25 Alkaline Phosphatase 70 Total Protein 5.8 L Albumin 3.1 L Globulin 2.7 Albumin/Globulin Ratio 1.1 Triglycerides 275 H Cholesterol 132 L LDL Cholesterol Direct 56.70 L VLDL Cholesterol 55 H HDL Cholesterol 13 L Cholesterol/HDL Ratio 10.2 H 04/16/21 04/16/21 04/16/21 20:06 17:13 11:10 WBC RBC Hgb Hct MCV MCH MCHC RDW Plt Count MPV Neut % (Auto) Lymph % (Auto) [place] % (Auto) Eos % (Auto) Baso % (Auto
[2021-04-17 12:17] LABS: POC Glucose,Bedside 243 (70-110)
== END 2021-04-17 15:01 | disposition home or self-care (01) | DRG 438 ==
LOC: ER 19:22 → 2ND 21:36
PROVIDERS: Family Medicine; Internal Medicine Adolescent Medicine; Admitting Provider Internal Medicine Adolescent Medicine; Emergency Provider Emergency Medicine; PCP Internal Medicine Adolescent Medicine; Visit Provider Internal Medicine Adolescent Medicine
DX: K85.90 Acute pancreatitis without necrosis or infection, unspecified (principal); E11.10 Type 2 diabetes mellitus with ketoacidosis without coma; A41.9 Sepsis, unspecified organism; N17.9 Acute kidney failure, unspecified; Z68.41 Body mass index [BMI] 40.0-44.9, adult; Z79.4 Long term (current) use of insulin; D75.1 Secondary polycythemia; I10 Essential (primary) hypertension; E87.5 Hyperkalemia; E78.1 Pure hyperglyceridemia; E66.9 Obesity, unspecified; Z20.822 Contact with and (suspected) exposure to COVID-19
CPT/HCPCS: 36415; 71045; 74176; 76770; 80048; 80053; 80061; 80305; 80329; 81001; 82009; 82803; 82962; 83036; 83605; 83690; 83735; 84478; 85007; 85025; 85730; 87040; 87086; 87205; 93005; 94640; 94760; 96365; 96367; 96375; 99281; J2405; U0003

== ENCOUNTER → 2021-05-25 14:45 | Outpatient (CLI) | payer BC, SELFPAY | PROVIDERS: PCP Internal Medicine Adolescent Medicine; Visit Provider Internal Medicine Adolescent Medicine | DX: Z71.3 Dietary counseling and surveillance (principal); E11.9 Type 2 diabetes mellitus without complications | CPT/HCPCS: 97802 ==

== ENCOUNTER 2021-05-29 17:34 | Emergency (ER) | payer BC, SELFPAY ==
--- NOTE | 2021-05-29 17:32 | ECG_ITS ---
APPROVED REPORT Exam: Resting ECG HR:70 bpm ECG Measurements Heart Rate 70 AXES TX 148 P 42 QRSd 90 QRS 0 QT 416 T 17 QTc 449 Conclusion Normal sinus rhythm ST elevation, consider early repolarization, pericarditis, or injury Abnormal ECG Electronically signed by : Jose Manuel Nelson MD 05/30/2021 07:56:53
[2021-05-29 17:35] VITALS: BP 108/71; PULSE 71; RESP 14; TEMP 36.7; O2SAT 96; BMI 33.9
--- NOTE | 2021-05-29 17:42 | HMH.EDSYNC ---
ED Disposition Condition on Discharge: Good - Critical Care Critical Care Time: No <Jaqui Glass - Last Filed: 05/29/21 19:51> <Emily Ramirez - Last Filed: 05/29/21 20:51> Clinical Impression: Syncope due to orthostatic hypotension, Hyperglycemia due to diabetes mellitus Syncope Qualifiers: Syncope type: unspecified Qualified Code(s): R55 - Syncope and collapse Disposition: Home, Self-Care Instructions: DI for Syncope in Adults (Fainting) Additional Instructions: Please reduce your lisinopril dose to 5 mg as you were taking before the recent increase. Follow-up with your primary care physician in about 1 week to discuss what happened and to discuss whether you will be again taking 10 mg after discussion. Return to the emergency department if you develop chest pain or shortness of breath. Drink plenty of fluids. Referrals: Vandana Rodrigues APRN [Primary Care Provider] - Attestation: On 05/29/21, the high probability of a clinically significant, sudden or life threatening deterioration of the following system(s) required my full and direct attention, intervention and personal management. The time I documented below is in addition to time spent performing reported procedures but includes the following listed in this critical care notation. Medical Decision Making - Medical Records Medical records reviewed: Yes: I reviewed the patient's medical records. - Raymond Inquiry Pt receiving controlled substance: No - Lab Data Lab results reviewed: Yes: I reviewed the patient's lab results. Result diagrams: 05/29/21 17:35 05/29/21 17:35 - ECG Data Tracing #1 I reviewed this ECG and interpreted as documented below: Normal Sinus Rhythm: Yes <Jaqui Glass - Last Filed: 05/29/21 19:51> - Lab Data Result diagrams: 05/29/21 17:35 05/29/21 17:35 <Emily Ramirez - Last Filed: 05/29/21 20:51> Vital Signs: 05/29/21 17:35 05/29/21 19:19 05/29/21 20:25 Temperature 98.1 F Temperature Source Oral Pulse Rate 72 77 Pulse Rate [Left Radial] 71 Respiratory Rate 14 17 17 Blood Pressure 122/85 142/88 H Blood Pressure [Right Arm] 108/71 L Blood Pressure Mean [Right Arm] 83 Blood Pressure Source Automatic Cuff Automatic Cuff Blood Pressure Source [Right Arm] Automatic Cuff Blood Pressure Position Supine Supine Blood Pressure Position [Right Arm] Sitting 02 Sat by Pulse Oximetry 96 98 98 Oxygen Delivery Method Room Air Room Air Room Air - Lab Data Lab Results 05/29/21 17:35: WBC 14.2 H, RBC 5.28, Hgb 13.7 L, Hct 41.0 L, MCV 77.7 L, MCH 25.9 L, MCHC 33.3, RDW 14.1, Plt Count 252, MPV 10.5 H, Neut % (Auto) 65.4, Lymph % (Auto) 25.1, [place] % (Auto) 5.4, Eos % (Auto) 2.7, Baso % (Auto) 1.4, Neut # (Auto) 9.3 H, Lymph # (Auto) 3.6, [place] # (Auto) 0.8, Eos # (Auto) 0.4, Baso # (Auto) 0.2 05/29/21 17:35: Sodium 141, Potassium 3.8, Chloride 104, Carbon Dioxide 24, Anion Gap 16.8 H, BUN 18, Creatinine 1.20, Estimated Creat Clear 103, Estimated GFR 66, Est GFR ( Amer) 80, Glucose 196 H, Calcium 11.3 H, Total Bilirubin 0.5, AST 27, ALT 20, Alkaline Phosphatase 68, Troponin I < 0.01, Total Protein 7.5 D, Albumin 4.7, Globulin 2.8, Albumin/Globulin Ratio 1.7 05/29/21 20:16: Troponin I < 0.01 Orders (Tests/Meds): ED MEDICATIONS Generic Name Dose Route Start Last Admin Trade Name Freq PRN Reason Stop Dose Admin Sodium Chloride 1,000 mls @ 999 mls/hr 05/29/21 18:00 05/29/21 18:54 Sod Chlor 0.9% 1000ml Bag IV 05/29/21 19:00 999 mls/hr .Q1H1M LOREE Administration - ECG Data Tracing #1 The ECG was obtained at 1732. It she is in normal sinus rhythm with a rate of 70 bpm. There is some mild diffuse ST elevations which do not appear to be associated with a ST elevation myocardial infarction. I favor early repolarization. The axis is normal. There is no evidence of dysrhythmia. (Jaqui Glass) Medical Decision Narrative: The patient presented to the [facility]
--- NOTE | 2021-05-29 17:46 | XR_ITS ---
PROCEDURE INFORMATION: Exam: XR Chest Exam date and time: 05/29/2021 5:46 PM Age: 45 years old Clinical indication: Other: Syncope, weakness; Additional info: Near syncope TECHNIQUE: Imaging protocol: XR of the chest. Views: 1 view. Portable AP upright exam 6:14 p.m. COMPARISON: CR XR CHEST PORTABLE 04/12/2021 8:29 AM FINDINGS: Tubes, catheters and devices: Overlying oxygen tubing. patient monitor electrodes. Lungs: No acute pulmonary findings. No pulmonary consolidation. Lung volumes within normal limits. Pleural spaces: Unremarkable. No significant pleural effusion. No pneumothorax. Heart/Mediastinum: Borderline cardiomegaly, accentuated by portable AP technique. Bones/joints: There is no evidence of acute fracture. IMPRESSION: No acute findings.
[2021-05-29 17:54] LABS: Basophils # 0.2 K/mm3 (0-0.2); Basophils % 1.4 % (0.1-2.0); Eosinophils # 0.4 K/mm3 (0.0-0.4); Eosinophils % 2.7 % (0.1-12.0); Hemoglobin 13.7 g/dL (14.1-18.0); Lymphocytes # 3.6 K/mm3 (0.7-4.5); Lymphocytes % 25.1 % (10-50); Mean Corpuscular HGB Conc 33.3 g/dL (31.8-35.4); Mean Corpuscular Hemoglobin 25.9 pg (27.0-31.2); Mean Corpuscular Volume 77.7 fl (80-94); Mean Platelet Volume 10.5 fl (7.4-10.4); Monocytes # 0.8 K/mm3 (0.1-1.0); Monocytes % 5.4 % (1.7-9.3); Neutrophils # 9.3 K/mm3 (1.8-7.8); Neutrophils % 65.4 % (37.0-80.0); Platelet Count 252 K/mm3 (142-424); Red Blood Count 5.28 M/mm3 (4.60-6.20); Red Cell Distribution Width 14.1 % (11.5-17.5); White Blood Count 14.2 K/mm3 (4.8-10.8)
[2021-05-29 17:55] LABS: Chloride 104 mmol/L (98-107); Potassium 3.8 mmoL/L (3.5-5.1); Sodium 141 mmol/L (136-145)
[2021-05-29 17:58] LABS: Alanine Aminotransferase 20 U/L (12-78); Albumin Level 4.7 g/dl (3.5-5.0); Albumin/Globulin Ratio 1.7 (1.1-1.8); Alkaline Phosphatase 68 U/L (38-126); Anion Gap 16.8 mEq/L (5-15); Aspartate Amino Transferase 27 U/L (17-59); Bilirubin,Total 0.5 mg/dl (0.2-1.3); Blood Urea Nitrogen 18 mg/dl (9-20); Carbon Dioxide 24 mmol/L (22.0-30.0); Creatinine Clearance Estimated 103 mL/min (50-200); Estimated Glomerular Filt Rate 66 ml/min (>60); GFR (African American) 80 ML/MIN (>60); Globulin 2.8 g/dL (1.3-3.2); Total Protein,Serum 7.5 g/dl (6.3-8.2)
[2021-05-29 17:59] LABS: Calcium 11.3 mg/dl (8.4-10.2); Glucose 196 mg/dl (74-100)
[2021-05-29 18:13] LABS: Troponin I < 0.01 ng/ml (0.00-0.034)
[2021-05-29 19:19] VITALS: BP 122/85; PULSE 72; RESP 17; O2SAT 98
[2021-05-29 20:25] VITALS: BP 142/88; PULSE 77; RESP 17; O2SAT 98
[2021-05-29 20:45] LABS: Troponin I < 0.01 ng/ml (0.00-0.034)
[2021-05-29 20:52] VITALS: PULSE 77; RESP 17; O2SAT 99
[2021-05-29 22:15] VITALS: BP 142/78; PULSE 74; RESP 16; TEMP 37; O2SAT 96
== END 2021-05-29 22:20 | disposition home or self-care (01) ==
PROVIDERS: Emergency Provider Emergency Medicine; PCP Nurse Practitioner Family
DX: I95.1 Orthostatic hypotension (principal); E11.65 Type 2 diabetes mellitus with hyperglycemia; E78.5 Hyperlipidemia, unspecified; I10 Essential (primary) hypertension; K86.1 Other chronic pancreatitis; Z79.899 Other long term (current) drug therapy
CPT/HCPCS: 71045; 80053; 84484; 85025; 93005; 96365; 99283

== ENCOUNTER 2021-06-09 03:06 | Inpatient (IN) | payer BC, SELFPAY ==
[2021-06-09] VITALS (18 sets, daily range): BP systolic 103–144; BP diastolic 55–92; PULSE 64–99; RESP 14–22; TEMP 36.7–37; O2SAT 93–99; BMI 33.3; BMI 34.7
--- NOTE | 2021-06-09 03:37 | CT_ITS ---
PROCEDURE INFORMATION: Exam: CT Abdomen And Pelvis With Contrast Exam date and time: 06/09/2021 3:37 AM Age: 45 years old Clinical indication: Abdominal pain; Localized; Left upper quadrant (luq); Prior surgery; Surgery type: Gallbladder; Patient HX: Luq pain for months TECHNIQUE: Imaging protocol: Computed tomography of the abdomen and pelvis with contrast. Radiation optimization: All CT scans at this facility use at least one of these dose optimization techniques: automated exposure control; mA and/or kV adjustment per patient size (includes targeted exams where dose is matched to clinical indication); or iterative reconstruction. Contrast material: ISOVUE; Contrast volume: 75 ml; Contrast route: IV; COMPARISON: CT ABDOMEN PELVIS WO CON 04/11/2021 6:21 PM FINDINGS: Lungs: There is minimal streaky atelectasis within the lower lobes. Liver: There is a moderate amount of perihepatic and a small amount of perisplenic fluid. Gallbladder and bile ducts: Unremarkable without gallstones. No intra or extrahepatic ductal dilation. Pancreas: There is a new 6.6 cm cyst (Hounsfield units: 13.3) arising from the anterior pancreatic head/body most consistent with a pseudocyst. There is worsening peripancreatic inflammatory infiltration and fluid extending into the mesentery, pericolic gutters and pelvis (Hounsfield units: 12.2). There is poor enhancement of the pancreatic tail concerning for necrosis. Spleen: There is perigastric and perisplenic stranding with a complex 4.0 cm fluid collection near the splenic hilum and additional 3.3 cm complex fluid collection abutting the gastric wall consistent with pseudocyst. Adrenal glands: The adrenal glands are normal. Kidneys and ureters: The kidneys are normal. Stomach and bowel: There is diverticulosis without diverticulitis. There is mild colonic wall thickening from the hepatic to the splenic flexure which may be reactive. There is generalized gastric wall thickening which may be reactive as well. Appendix: No evidence of appendicitis. No appendicolith. Intraperitoneal space: There are 2 small ill-defined developing fluid collections near the marcelo hepatis also consistent with pseudocyst. Vasculature: The portal, splenic and superior mesenteric veins appear grossly patent. I do not see a definite splenic artery aneurysm. Punctate phleboliths are incidentally noted the pelvis. Lymph nodes: No enlarged lymph nodes within the retroperitoneal space or mesentery. Urinary bladder: Unremarkable as visualized. Reproductive: There is calcification of the vas deferens consistent with diabetes. Bones/joints: Unremarkable. No acute fracture. No osteolytic or blastic bone lesions. Soft tissues: Paraspinous and extracorporeal soft tissues are unremarkable. IMPRESSION: 1. Complicated pancreatitis with the interval development of multiple complex pancreatic pseudocysts, worsening peripancreatic inflammatory infiltration and moderate volume free fluid. In addition, there is now heterogeneous enhancement the pancreatic tail concerning for pancreatic necrosis. 2. Hepatic steatosis. 3. Diverticulosis. 4. Colonic and gastric wall thickening which may be reactive.
[2021-06-09 03:54] LABS: Basophils # 0.3 K/mm3 (0-0.2); Basophils % 1.1 % (0.1-2.0); Eosinophils # 0.4 K/mm3 (0.0-0.4); Eosinophils % 1.6 % (0.1-12.0); Hematocrit 44.7 % (42.0-52.0); Hemoglobin 14.7 g/dL (14.1-18.0); Lymphocytes # 3.8 K/mm3 (0.7-4.5); Mean Corpuscular HGB Conc 32.9 g/dL (31.8-35.4); Mean Corpuscular Hemoglobin 25.6 pg (27.0-31.2); Mean Corpuscular Volume 77.9 fl (80-94); Mean Platelet Volume 10.5 fl (7.4-10.4); Monocytes # 1.4 K/mm3 (0.1-1.0); Monocytes % 5.8 % (1.7-9.3); Neutrophils % 75.5 % (37.0-80.0); Platelet Count 346 K/mm3 (142-424); Red Blood Count 5.74 M/mm3 (4.60-6.20); Red Cell Distribution Width 14.8 % (11.5-17.5); White Blood Count 23.8 K/mm3 (4.8-10.8)
[2021-06-09 03:57] LABS: Alanine Aminotransferase 13 U/L (12-78); Albumin Level 4.5 g/dl (3.5-5.0); Albumin/Globulin Ratio 1.6 (1.1-1.8); Alkaline Phosphatase 64 U/L (38-126); Amylase 131 U/L (30-110); Anion Gap 16.2 mEq/L (5-15); Aspartate Amino Transferase 21 U/L (17-59); Bilirubin,Total 0.7 mg/dl (0.2-1.3); Blood Urea Nitrogen 17 mg/dl (9-20); Calcium 10.9 mg/dl (8.4-10.2); Carbon Dioxide 27 mmol/L (22.0-30.0); Chloride 101 mmol/L (98-107); Creatinine Clearance Estimated 93 mL/min (50-200); Estimated Glomerular Filt Rate 60 ml/min (>60); GFR (African American) 73 ML/MIN (>60); Globulin 2.8 g/dL (1.3-3.2); Glucose 229 mg/dl (74-100); Lipase 511 U/L (23-300); Potassium 4.2 mmoL/L (3.5-5.1); Sodium 140 mmol/L (136-145); Total Protein,Serum 7.3 g/dl (6.3-8.2)
--- NOTE | 2021-06-09 03:58 | HMH.EDNVD ---
ED Disposition Clinical Impression: Pancreatic pseudocyst Pancreatitis Qualifiers: Chronicity: acute Pancreatitis type: unspecified pancreatitis type Acute pancreatitis complication: unspecified Qualified Code(s): K85.90 - Acute pancreatitis without necrosis or infection, unspecified Disposition: Admitted As Inpatient Condition on Discharge: Good - Critical Care Critical Care Time: No Attestation: On 06/09/21, the high probability of a clinically significant, sudden or life threatening deterioration of the following system(s) required my full and direct attention, intervention and personal management. The time I documented below is in addition to time spent performing reported procedures but includes the following listed in this critical care notation. Medical Decision Making - Medical Records Medical records reviewed: Yes: I reviewed the patient's medical records. - [place] Inquiry Pt receiving controlled substance: No Vital Signs: 06/09/21 03:17 06/09/21 04:00 06/09/21 04:30 Temperature 98.1 F Temperature Source Oral Pulse Rate 89 84 Pulse Rate [Right Brachial] 98 H Respiratory Rate 17 Blood Pressure 118/75 134/92 H Blood Pressure [right] 138/89 Blood Pressure Mean [right] 105 Blood Pressure Source [right] Automatic Cuff Blood Pressure Position [right] Sitting 02 Sat by Pulse Oximetry 97 96 96 Oxygen Delivery Method Room Air 06/09/21 05:00 Temperature Temperature Source Pulse Rate 87 Pulse Rate [Right Brachial] Respiratory Rate Blood Pressure 124/72 Blood Pressure [right] Blood Pressure Mean [right] Blood Pressure Source [right] Blood Pressure Position [right] 02 Sat by Pulse Oximetry 97 Oxygen Delivery Method - Lab Data Lab results reviewed: Yes: I reviewed the patient's lab results. Lab Results 06/09/21 03:20: WBC 23.8 H*, RBC 5.74, Hgb 14.7, Hct 44.7, MCV 77.9 L, MCH 25.6 L, MCHC 32.9, RDW 14.8, Plt Count 346, MPV 10.5 H, Neut % (Auto) 75.5, Lymph % (Auto) 16.0, [place] % (Auto) 5.8, Eos % (Auto) 1.6, Baso % (Auto) 1.1, Neut # (Auto) 18.0 H, Lymph # (Auto) 3.8, [place] # (Auto) 1.4 H, Eos # (Auto) 0.4, Baso # (Auto) 0.3 H, Total Counted 100, Neutrophils % (Manual) 71, Lymphocytes % (Manual) 21, Monocytes % (Manual) 5, Eosinophils % (Manual) 2, Basophils % (Manual) 1.0, Platelet Estimate Normal, RBC Morphology Not Reportable, Microcytosis 1+, Stomatocytes 1+, ESR 5 06/09/21 03:20: Sodium 140, Potassium 4.2, Chloride 101, Carbon Dioxide 27, Anion Gap 16.2 H, BUN 17, Creatinine 1.30 H, Estimated Creat Clear 93, Estimated GFR 60, Est GFR ( Amer) 73, Glucose 229 H, Calcium 10.9 H, Total Bilirubin 0.7, AST 21, ALT 13, Alkaline Phosphatase 64, C-Reactive Protein 17.8 H, Total Protein 7.3, Albumin 4.5, Globulin 2.8, Albumin/Globulin Ratio 1.6, Amylase 131 H, Lipase 511 H 06/09/21 03:20: Triglycerides 288 H, Cholesterol 112 L, LDL Cholesterol Direct 52.56 L, VLDL Cholesterol 58 H, HDL Cholesterol 23 L, Cholesterol/HDL Ratio 4.9 H 06/09/21 03:20: Acetone Level None detected Result diagrams: 06/09/21 03:20 06/09/21 03:20 Orders (Tests/Meds): ED MEDICATIONS Generic Name Dose Route Start Last Admin Trade Name Freq PRN Reason Stop Dose Admin Sodium Chloride 1,000 mls @ 999 mls/hr 06/09/21 05:30 06/09/21 05:23 Sod Chlor 0.9% 1000ml Bag IV 06/09/21 06:30 999 mls/hr .Q1H1M LOREE Administration Sodium Chloride 8 ml 06/09/21 04:01 Sodium Chloride 0.9% 10ml Vial IV 07/09/21 04:00 NEEDED PRN dilute pepcid Discontinued Medications Generic Name Dose Route Start Last Admin Trade Name Freq PRN Reason Stop Dose Admin Famotidine 20 mg 06/09/21 04:01 06/09/21 04:02 Famotidine 20mg/2ml Vial IV 06/09/21 04:02 20 mg ONCE ONE Administration Sodium Chloride 1,000 mls @ 999 mls/hr 06/09/21 03:45 06/09/21 05:21 Sod Chlor 0.9% 1000ml Bag IV 06/09/21 04:45 999 mls/hr .Q1H1M LOREE Administration Iopamidol 75 ml 06/09/21 04:26 05/24
[2021-06-09 04:00] LABS: MANUAL DIFFERENTIAL MANUAL DIFFERENTIAL (MANUAL DIFF)
[2021-06-09 04:03] LABS: C-Reactive Protein 17.8 mg/L (0-4)
--- NOTE | 2021-06-09 04:05 | XR_ITS ---
PROCEDURE INFORMATION: Exam: XR Chest Exam date and time: 06/09/2021 4:05 AM Age: 45 years old Clinical indication: Pain; Other: Luq; Additional info: Luq abd pain TECHNIQUE: Imaging protocol: XR of the chest. Views: 2 views. COMPARISON: CR XR CHEST PORTABLE 05/29/2021 6:13 PM FINDINGS: Lungs: There is mild hypoinflation with mild bibasilar atelectasis. Pleural spaces: There is no pleural effusion or pneumothorax. Heart/Mediastinum: The cardiac silhouette and mediastinal contours are unremarkable. Bones/joints: The bones are grossly intact. IMPRESSION: Mild hypoinflation and bibasilar atelectasis.
[2021-06-09 04:21] LABS: Chol/HDL Ratio 4.9 (1-3.5); Cholesterol 112 mg/dl (140-200); HDL Cholesterol 23 mg/dl (40-60); Triglycerides 288 mg/dl (30-150); VLDL Cholesterol 58 mg/dL (0-40)
[2021-06-09 04:32] LABS: Direct LDL Cholesterol 52.56 mg/dL (100-129)
[2021-06-09 04:36] LABS: Acetone, Serum (Rapid) None Detected (None Detect)
[2021-06-09 04:49] LABS: Erythrocyte Sedimentation Rate 5 mm/hr (0-15)
[2021-06-09 05:22] LABS: Eosinophils % 2 % (0-3); Lymphocytes % 21 % (10-50); Microcytosis 1+; Monocytes % 5 % (2-9); Neutrophils % 71 % (42-76); Platelet Estimate Normal; Stomatocytes 1+; Total Cells Counted 100
[2021-06-09 06:02] LABS: Coronavirus 19, PCR Not Detected (NotDetected); Influenza A, PCR Not Detected (NotDetected); Influenza B, PCR Not Detected (NotDetected)
--- NOTE | 2021-06-09 07:04 | PC.NURSE ---
report given to grace shah
--- NOTE | 2021-06-09 07:35 | PC.NURSE ---
calling [facility] per Dr Martinez request.
--- NOTE | 2021-06-09 07:37 | PC.NURSE ---
Dr Martinez speaking to Dr Loo
--- NOTE | 2021-06-09 07:39 | PC.NURSE ---
I SPOKE WITH [facility] UNLESS OUR PT IS HAVING A STROKE OR NH THEY HAVE REACHED THEIR MAXIUM CAPACITY
--- NOTE | 2021-06-09 07:45 | PC.NURSE ---
[facility] to return call.
--- NOTE | 2021-06-09 07:59 | PC.NURSE ---
[facility] returned call
--- NOTE | 2021-06-09 08:12 | PC.NURSE ---
attempted to call report to second floor, steward/stewardess night states primary nurse is in with another pt, will have her call back to get report
--- NOTE | 2021-06-09 09:00 | PC.NURSE ---
Talked with second floor nurse who is unable to take report at this time due to a critical pt. Will call back when able to take report
--- NOTE | 2021-06-09 10:12 | PC.NURSE ---
Report called to nurse on second floor
--- NOTE | 2021-06-09 10:22 | HMH.PHAVTE ---
[facility] Pharmacy VTE Monitoring - Patient Demographics Admission date: 06/09/21 Report Date: 06/09/21 Time: 10:22 Allergies/Adverse Reactions: Patient Allergies atorvastatin [From Lipitor] Allergy (Verified 04/11/21 18:14) niacin Allergy (Verified 04/11/21 18:14) Height: 1.65 m Weight: 90.718 kg Patient Problems: Current Active Problems Pancreatitis (Acute) Pancreatic pseudocyst (Acute) - VTE Risk Labs: VTE Related Lab Results Hgb 14.7 g/dL (14.1-18.0) 06/09/21 03:20 Hct 44.7 % (42.0-52.0) 06/09/21 03:20 Plt Count 346 K/mm3 (142-424) 06/09/21 03:20 BUN 17 mg/dl (9-20) 06/09/21 03:20 Creatinine 1.30 mg/dl (0.66-1.25) H 06/09/21 03:20 Estimated Creat Clear 93 mL/min (50-200) 06/09/21 03:20 - Prophylaxis VTE Prophylaxis Ordered?: Yes Types of VTE Prophylaxis: TEDS Knee High Location of Applied Device: Bilateral Lower Extremeties
--- NOTE | 2021-06-09 11:16 | HMH.PHAINT ---
MEDICATION RECONCILIATION COMPLETE USING DISCHARGE LIST FROM ER RECENTLY AND EXTERNAL PHARMACY FILL HISTORY.
--- NOTE | 2021-06-09 11:20 | PC.NURSE ---
Notified Dr Talley of pt pain continuing to be / despite giving 4mg of morphine, stated he would put in order for new pain medication
[2021-06-09 11:33] LABS: POC Glucose,Bedside 259 (70-110)
--- NOTE | 2021-06-09 12:57 | HMH.HP ---
*Admission Date: 06/09/21 *Chief complaint: abdominal pain *History of present illness: Mr. Fitch is a pleasant 45-year-old male with history of insulin-dependent type 2 diabetes, hypertriglyceridemia, recurrent pancreatitis secondary to triglycerides, and hypertension. He presented to the ER last night due to acute worsening of abdominal pain and feeling dizzy/fatigued. Imaging performed of his abdomen showing significant progression after his last episode of pancreatitis with development of numerous pseudocysts and persistent inflammation. Labs obtained showing elevation of his lipase. Triglycerides interestingly in the 200 range (very well controlled for him). Pain difficult to control, requiring IV Dilaudid. Attempts to transfer patient were unsuccessful given development of cysts and need for interventional radiology and GI. Patient admitted for pain control and bowel rest. On assessment, patient complaining of persistent pain. Tolerating IV fluids. No vomiting but having some mild nausea. Pain with deep breaths in his left upper abdomen. Of note, has been seen numerous times over the past month and a half after his last episode of severe pancreatitis requiring prolonged admission to [facility]. Has had 2 episodes of near syncope thought to be related to blood sugar however blood sugar and blood pressure were normal. Most recently seen on Tuesday and was being scheduled for outpatient CT. On interview, he feels these episodes may be related to his pancreas is he feels pain prior to onset of his dizziness along with a warm sensation. No shortness of breath, chest pain, confusion, diarrhea. [facility] History I have reviewed the patient's past medical history: Yes Medical History: Reports:: Diabetes Mellitus Type 2, Hyperlipidemia, Hypertension Denies:: Cancer, Diabetes Mellitus Type 1, MRSA *Have you ever received a pneumonia vaccine?: Yes *Have you received a flu vaccine this season?: Yes Other Surgeries: Yes: Cholecystectomy, Other Amputation: No Fractures: No - *Social History Last grade of school completed: Some college Smoking Status: Never smoker Alcohol Intake: current Alcohol Intake Frequency:: a few times a month Substance Use Type: denies use *Occupational Status:: employed Housing: house Household Members: spouse *Travel in the last 8 weeks: None Family Hx:: No significant family history Review of Systems - Review of Systems Review of systems:: pertinent systems reviewed and negative unless documented below (14 point review of systems performed, pertinent positives and negatives as per HPI) - *Neurologic Denies headache(s), Denies seizure-like activity Meds Home Medications Medication Instructions Recorded Confirmed Type Cetirizine HCl 10 mg PO DAILY 04/11/20 06/09/21 History Fenofibrate 160 mg PO DAILY #90 tab 04/14/20 06/09/21 Rx [place]-3 Acid Ethyl Esters [Lovaza] 2 gm PO BID #120 cap 04/14/20 06/09/21 Rx Aspirin [Adult Low Dose Aspirin EC] 81 mg PO DAILY 01/01/21 06/09/21 History Dapagliflozin Propanediol [Farxiga] 10 mg PO DAILY 01/01/21 06/09/21 History Insulin Lispro 0 unit SQ AC 01/01/21 06/09/21 History lisinopriL [Zestril 10mg Tab] 10 mg PO DAILY 01/01/21 06/09/21 History Rosuvastatin Calcium [Crestor 20 20 mg PO HS 04/12/21 06/09/21 History mg Tablets] Insulin Glargine,Hum.rec.anlog 30 units SQ HS 30 Days #3 pen 04/17/21 06/09/21 Rx [Lantus Solostar 100 Units/mL 3mL flexpen] Lipase/Protease/Amylase [Zenpep Dr 1 cap PO TID 06/09/21 06/09/21 History 20,000 Unit Capsule] Allergies Allergy/AdvReac Type Severity Reaction Status Date / Time atorvastatin [From Lipitor] Allergy Joint Pain Verified 06/09/21 10:46 niacin Allergy Verified 06/09/21 10:46 Exam Vital signs and Labs for Last 24 Hours: Temp Pulse Resp BP Pulse Ox 98.1 F 94 H 18 109/68 L 95 06/09/21 10:40 06/09/21 10:45 06/09/21 10:45 06/09/21 10:45 06/09/21 10:57 Labora
[2021-06-09 18:01] LABS: POC Glucose,Bedside 177 (70-110)
--- NOTE | 2021-06-09 19:45 | PC.NURSE ---
PT IS RESTING IN BED. PT IS REQUIRING PAIN MEDICATION Q3H. PT HAS ALSO TRIED REPOSITIONING TO HELP WITH HIS PAIN. PAIN NOTED AT THE LUQ OF THE ABDOMEN. ABDOMEN SOFT/NON TENDER WITH ACTIVE BOWEL SOUNDS. LUNG SOUNDS CLEAR. NPO WITH ICE CHIPS. WILL CONTINUE TO MONITOR.
[2021-06-09 22:34] LABS: POC Glucose,Bedside 144 (70-110)
[2021-06-10 01:38] LABS: Appearance,Urine CLEAR (Clear); Bilirubin,Urine Negative (Negative); Blood, Urine Negative (Negative); Color,Urine DK YELLOW (Yellow); Glucose,Urine (UA) TRACE (Negative); Ketones,Urine Negative (Negative); Leukocyte Esterase,Urine Negative (Negative); Microscopic, Urine URINE MICROSCOPIC (MICROSCOPIC); Nitrate,Urine POSITIVE (Negative); Protein,Urine TRACE (Negative); Specific Gravity, Urine >= 1.030 (1.005-1.030); Urobilinogen,Urine 0.2 EU/dl (0.2)
[2021-06-10 02:46] LABS: Bacteria,Urine 1+ /lpf; Mucus,Urine 1+ /lpf
[2021-06-10 04:00] VITALS: BP 132/64; PULSE 74; RESP 19; TEMP 36.6; O2SAT 96
[2021-06-10 05:36] VITALS: BMI 34.8
[2021-06-10 06:35] LABS: Basophils # 0.1 K/mm3 (0-0.2); Eosinophils # 0.1 K/mm3 (0.0-0.4); Eosinophils % 1.1 % (0.1-12.0); Hematocrit 33.5 % (42.0-52.0); Hemoglobin 10.9 g/dL (14.1-18.0); Lymphocytes # 2.6 K/mm3 (0.7-4.5); Lymphocytes % 21.3 % (10-50); Mean Corpuscular HGB Conc 32.6 g/dL (31.8-35.4); Mean Corpuscular Hemoglobin 25.5 pg (27.0-31.2); Mean Corpuscular Volume 78.2 fl (80-94); Mean Platelet Volume 9.7 fl (7.4-10.4); Monocytes # 1.1 K/mm3 (0.1-1.0); Monocytes % 9.3 % (1.7-9.3); Neutrophils # 8.3 K/mm3 (1.8-7.8); Neutrophils % 67.3 % (37.0-80.0); Platelet Count 162 K/mm3 (142-424); Red Blood Count 4.28 M/mm3 (4.60-6.20); Red Cell Distribution Width 14.6 % (11.5-17.5); White Blood Count 12.3 K/mm3 (4.8-10.8)
[2021-06-10 06:41] LABS: Chloride 104 mmol/L (98-107); Potassium 4.2 mmoL/L (3.5-5.1); Sodium 137 mmol/L (136-145)
[2021-06-10 06:43] LABS: POC Glucose,Bedside 159 (70-110)
[2021-06-10 06:44] LABS: Alanine Aminotransferase 20 U/L (12-78); Albumin Level 3.6 g/dl (3.5-5.0); Albumin/Globulin Ratio 1.4 (1.1-1.8); Alkaline Phosphatase 66 U/L (38-126); Anion Gap 11.2 mEq/L (5-15); Aspartate Amino Transferase 26 U/L (17-59); Bilirubin,Total 1.3 mg/dl (0.2-1.3); Blood Urea Nitrogen 19 mg/dl (9-20); Calcium 9.7 mg/dl (8.4-10.2); Carbon Dioxide 26 mmol/L (22.0-30.0); Creatinine Clearance Estimated 126 mL/min (50-200); Estimated Glomerular Filt Rate 81 ml/min (>60); GFR (African American) 98 ML/MIN (>60); Globulin 2.6 g/dL (1.3-3.2); Glucose 162 mg/dl (74-100); Lipase 460 U/L (23-300); Magnesium 1.3 mg/dl (1.6-2.3); Total Protein,Serum 6.2 g/dl (6.3-8.2)
[2021-06-10 08:00] VITALS: BP 138/79; PULSE 89; RESP 20; TEMP 36.9; O2SAT 92
--- NOTE | 2021-06-10 08:18 | P.PN_ITS ---
Internal Medicine - PN: Subj *Date: 06/10/21 *Time: 08:18 Interval history: Patient reports less pain overnight, no vomiting, has been doing sips of water and ice chips. He is sitting up in a chair and is feeling much more comfortable. Exam Vital signs and Labs for Last 24 Hours: Temp Pulse Resp BP Pulse Ox 98 F 74 19 132/64 96 06/10/21 04:00 06/10/21 04:00 06/10/21 04:00 06/10/21 04:00 06/10/21 04:00 Laboratory Results - last 24 hr 06/09/21 11:20: POC Glucose 259 H 06/09/21 17:11: POC Glucose 177 H 06/09/21 22:26: POC Glucose 144 H 06/10/21 01:30: Urine Color Dk yellow, Urine Appearance Clear, Urine pH 6.0, Ur Specific [place] >= 1.030, Urine Protein Trace, Urine Glucose (UA) Trace, Urine Ketones Negative, Urine Blood Negative, Urine Nitrate Positive, Urine Bilirubin Negative, Urine Urobilinogen 0.2, Ur Leukocyte Esterase Negative, Urine RBC 3-5, Urine WBC 3-5, Urine Bacteria 1+, Urine Mucus 1+ 06/10/21 05:39: WBC 12.3 H D, RBC 4.28 L D, Hgb 10.9 L, Hct 33.5 L, MCV 78.2 L, MCH 25.5 L, MCHC 32.6, RDW 14.6, Plt Count 162 D, MPV 9.7, Neut % (Auto) 67.3, Lymph % (Auto) 21.3, [place] % (Auto) 9.3, Eos % (Auto) 1.1, Baso % (Auto) 1.0, Neut # (Auto) 8.3 H, Lymph # (Auto) 2.6, [place] # (Auto) 1.1 H, Eos # (Auto) 0.1, Baso # (Auto) 0.1 06/10/21 05:39: Sodium 137, Potassium 4.2, Chloride 104, Carbon Dioxide 26, Anion Gap 11.2, BUN 19, Creatinine 1.00 D, Estimated Creat Clear 126, Estimated GFR 81, Est GFR ( Amer) 98 D, Glucose 162 H, Calcium 9.7, Magnesium 1.3 L, Total Bilirubin 1.3, AST 26, ALT 20 D, Alkaline Phosphatase 66, Total Protein 6.2 L, Albumin 3.6 D, Globulin 2.6, Albumin/Globulin Ratio 1.4, Lipase 460 H 06/10/21 06:29: POC Glucose 159 H I & O for Last 24 hours: Intake & Output 06/07/21 06/08/21 06/09/21 06/10/21 11:59 11:59 11:59 11:59 Intake Total 0 / 0 Balance 0 / 0 Weight 209 lb 209 lb 1 oz Narrative: Patient is alert, awake, no jaundice, sitting up in a chair comfortably, breathing easily. No edema, neurologically intact, ENT exam clear. Abdomen is dam tender assistant in the left upper quadrant but apparently dramatically less so than yesterday. Assessment and Plan (1) Pancreatic pseudocyst Status: Acute Category: Medical Code(s): K86.3 - Pseudocyst of pancreas (2) Pancreatitis Status: Chronic Qualifiers: Chronicity: acute Pancreatitis type: unspecified pancreatitis type Acute pancreatitis complication: unspecified Qualified Code(s): K85.90 - Acute pancreatitis without necrosis or infection, unspecified Category: Medical Code(s): K85.90 - Acute pancreatitis without necrosis or infection, unspecified (3) Hypertriglyceridemia Status: Chronic Category: Medical Code(s): E78.1 - Pure hyperglyceridemia (4) Type 2 diabetes mellitus Status: Chronic Qualifiers: Category: Medical Code(s): E11.9 - Type 2 diabetes mellitus without complications (5) Class 1 obesity Status: Chronic Category: Medical Code(s): E66.9 - Obesity, unspecified - Assessment and plan all Dx Assessment and Plan for all problems:: Continue n.p.o. status, continue IV pain medication. If pain is suitably controlled over the next 24 hours we might consider discharge home with oral pain medication. He also needs to await [facility] specialty appointment.
[2021-06-10 12:43] LABS: POC Glucose,Bedside 163 (70-110)
--- NOTE | 2021-06-10 15:27 | PC.NURSE ---
patient has done well. only real complaint was earlier in shift when he stated it felt like something popped under ribs and caused radiating pain up to shoulder. md was made aware and okayed giving pain meds at that time early. otherwise patient has bee n up walking in room and sitting in chair. eatting ice chips. no other issues noted.
[2021-06-10 15:40] VITALS: BP 118/64; PULSE 87; RESP 18; TEMP 36.7; O2SAT 96
[2021-06-10 15:58] VITALS: O2SAT 96
[2021-06-10 16:39] LABS: POC Glucose,Bedside 151 (70-110)
[2021-06-10 16:56] VITALS: BMI 34.9
--- NOTE | 2021-06-10 17:00 | PC.NURSE ---
Pt. reports having burning urinating and having issue starting urinary flow. Pt. concerned for UTI. Will pass this along in report, to discuss with MD in AM.
[2021-06-10 20:02] VITALS: BP 117/72; PULSE 89; RESP 18; TEMP 36.9; O2SAT 96
[2021-06-11 00:55] LABS: POC Glucose,Bedside 128 (70-110)
--- NOTE | 2021-06-11 03:12 | PC.NURSE ---
A&OX4. TOLERATING RA WELL. PT HAS C/O ABD PAIN X1 THUS FAR, TX PER MAR. ON REASSESSMENT PT IS RESTING IN BED. NO OTHER C/O THUS FAR, VSS WILL CONTINUE TO MONITOR.
[2021-06-11 03:53] VITALS: BP 149/83; PULSE 87; RESP 18; TEMP 37; O2SAT 95
[2021-06-11 05:09] LABS: POC Glucose,Bedside 122 (70-110)
[2021-06-11 07:04] LABS: Basophils # 0.1 K/mm3 (0-0.2); Basophils % 0.8 % (0.1-2.0); Eosinophils # 0.2 K/mm3 (0.0-0.4); Eosinophils % 2.4 % (0.1-12.0); Hemoglobin 10.6 g/dL (14.1-18.0); Lymphocytes # 1.9 K/mm3 (0.7-4.5); Lymphocytes % 24.6 % (10-50); Mean Corpuscular Hemoglobin 25.6 pg (27.0-31.2); Mean Corpuscular Volume 77.7 fl (80-94); Mean Platelet Volume 8.3 fl (7.4-10.4); Monocytes # 0.5 K/mm3 (0.1-1.0); Monocytes % 6.2 % (1.7-9.3); Neutrophils # 5.2 K/mm3 (1.8-7.8); Platelet Count 141 K/mm3 (142-424); Red Blood Count 4.12 M/mm3 (4.60-6.20); Red Cell Distribution Width 14.5 % (11.5-17.5); White Blood Count 7.8 K/mm3 (4.8-10.8)
[2021-06-11 07:19] LABS: Chloride 103 mmol/L (98-107); Sodium 139 mmol/L (136-145)
[2021-06-11 07:22] LABS: Alanine Aminotransferase 25 U/L (12-78); Albumin Level 3.8 g/dl (3.5-5.0); Albumin/Globulin Ratio 1.3 (1.1-1.8); Alkaline Phosphatase 195 U/L (38-126); Aspartate Amino Transferase 39 U/L (17-59); Bilirubin,Total 2.1 mg/dl (0.2-1.3); Blood Urea Nitrogen 12 mg/dl (9-20); Carbon Dioxide 26 mmol/L (22.0-30.0); Creatinine Clearance Estimated 141 mL/min (50-200); Estimated Glomerular Filt Rate 92 ml/min (>60); GFR (African American) 111 ML/MIN (>60); Globulin 2.9 g/dL (1.3-3.2); Total Protein,Serum 6.7 g/dl (6.3-8.2)
[2021-06-11 07:23] LABS: Calcium 10.1 mg/dl (8.4-10.2); Glucose 118 mg/dl (74-100)
[2021-06-11 08:00] VITALS: BP 136/78; PULSE 87; RESP 20; TEMP 36.7; O2SAT 96
--- NOTE | 2021-06-11 09:17 | HMH.ACPN2 ---
Internal Medicine - PN: Subj *Date: 06/11/21 *Time: 09:17 Interval history: Overall patient had a fairly good night, took his last intravenous Dilaudid dose around 350 this morning and at the time of my rounding had very minimal pain. Has been taking sips of clear liquids well. Exam Vital signs and Labs for Last 24 Hours: Temp Pulse Resp BP Pulse Ox 98.6 F 87 18 149/83 H 95 06/11/21 03:53 06/11/21 03:53 06/11/21 03:53 06/11/21 03:53 06/11/21 03:53 Laboratory Results - last 24 hr 06/10/21 11:41: POC Glucose 163 H 06/10/21 16:30: POC Glucose 151 H 06/10/21 20:01: POC Glucose 128 H 06/11/21 04:55: POC Glucose 122 H 06/11/21 06:14: WBC 7.8 D, RBC 4.12 L, Hgb 10.6 L, Hct 32.0 L, MCV 77.7 L, MCH 25.6 L, MCHC 33.0, RDW 14.5, Plt Count 141 L, MPV 8.3, Neut % (Auto) 66.0, Lymph % (Auto) 24.6, [place] % (Auto) 6.2, Eos % (Auto) 2.4, Baso % (Auto) 0.8, Neut # (Auto) 5.2, Lymph # (Auto) 1.9, [place] # (Auto) 0.5, Eos # (Auto) 0.2, Baso # (Auto) 0.1 06/11/21 06:14: Sodium 139, Potassium 4.0, Chloride 103, Carbon Dioxide 26, Anion Gap 14.0, BUN 12 D, Creatinine 0.90, Estimated Creat Clear 141, Estimated GFR 92, Est GFR ( Amer) 111, Glucose 118 H, Calcium 10.1, Total Bilirubin 2.1 H, AST 39 D, ALT 25, Alkaline Phosphatase 195 H, Total Protein 6.7, Albumin 3.8, Globulin 2.9, Albumin/Globulin Ratio 1.3 I & O for Last 24 hours: Intake & Output 06/08/21 06/09/21 06/10/21 06/11/21 11:59 11:59 11:59 11:59 Intake Total 0 / 0 1410 / 1410 Balance 0 / 0 1410 / 1410 Weight 209 lb 209 lb 1 oz 209 lb 7.026 oz Narrative: Alert, pleasant, ENT exam clear. No scleral icterus. Abdomen is soft, very minimal left upper quadrant tenderness. Lungs clear, heart rate regular Assessment and Plan (1) Pancreatic pseudocyst Status: Acute Category: Medical Code(s): K86.3 - Pseudocyst of pancreas (2) Pancreatitis Status: Chronic Qualifiers: Chronicity: acute Pancreatitis type: unspecified pancreatitis type Acute pancreatitis complication: unspecified Qualified Code(s): K85.90 - Acute pancreatitis without necrosis or infection, unspecified Category: Medical Code(s): K85.90 - Acute pancreatitis without necrosis or infection, unspecified (3) Hypertriglyceridemia Status: Chronic Category: Medical Code(s): E78.1 - Pure hyperglyceridemia (4) Type 2 diabetes mellitus Status: Chronic Qualifiers: Category: Medical Code(s): E11.9 - Type 2 diabetes mellitus without complications (5) Class 1 obesity Status: Chronic Category: Medical Code(s): E66.9 - Obesity, unspecified - Assessment and plan all Dx Assessment and Plan for all problems:: Symptomatically improving, clear liquids. Percocet p.o. to see if he could manage at home with p.o. pain pills.
--- NOTE | 2021-06-11 14:59 | PC.NURSE ---
patient has done okay this shift. minimal complaints of pain only one dose of po meds at this time. tolerating clears. rings out as needed. independent in room. has been sleeping off and on. vitals stable.
[2021-06-11 16:00] VITALS: BP 130/91; PULSE 83; RESP 18; TEMP 36.7; O2SAT 98
[2021-06-11 17:01] LABS: POC Glucose,Bedside 128 (70-110)
[2021-06-11 17:02] LABS: POC Glucose,Bedside 186 (70-110)
--- NOTE | 2021-06-11 17:03 | PC.NURSE ---
patient decided to walk out ama. education done with patient of risks, and educated on when to come back for care. patient stated he still wished to go home. md notified no new orders given. iv removed. educated to keep any follow up apts.
--- NOTE | 2021-06-12 13:11 | HMH.DCSUM ---
General - General Admission date:: 06/09/21 Discharge date: 06/11/21 HPI HPI: Mr. Fitch is a pleasant 45-year-old male with history of insulin-dependent type 2 diabetes, hypertriglyceridemia, recurrent pancreatitis secondary to triglycerides, and hypertension. He presented to the ER last night due to acute worsening of abdominal pain and feeling dizzy/fatigued. Imaging performed of his abdomen showing significant progression after his last episode of pancreatitis with development of numerous pseudocysts and persistent inflammation. Labs obtained showing elevation of his lipase. Triglycerides interestingly in the 200 range (very well controlled for him). Pain difficult to control, requiring IV Dilaudid. Attempts to transfer patient were unsuccessful given development of cysts and need for interventional radiology and GI. Patient admitted for pain control and bowel rest. On assessment, patient complaining of persistent pain. Tolerating IV fluids. No vomiting but having some mild nausea. Pain with deep breaths in his left upper abdomen. Of note, has been seen numerous times over the past month and a half after his last episode of severe pancreatitis requiring prolonged admission to [facility]. Has had 2 episodes of near syncope thought to be related to blood sugar however blood sugar and blood pressure were normal. Most recently seen on Tuesday and was being scheduled for outpatient CT. On interview, he feels these episodes may be related to his pancreas is he feels pain prior to onset of his dizziness along with a warm sensation. No shortness of breath, chest pain, confusion, diarrhea. Hospital Course Hospital Course: Initially admitted for pain control and pancreatitis. Treated with bowel rest. Imaging showing significant development of pseudocysts and inflammation of pancreas. Gradually pain improved and able to tolerate lower dose of oral pain medication. Advance diet to clear liquids. Patient was moving in a positive direction when he decided he no longer wanted to be admitted as he was feeling better and was not getting adequate rest while admitted to the hospital. Left AGAINST MEDICAL ADVICE. Was hemodynamically stable at time of discharge however. Needs close follow-up with GI for further imaging, monitoring of chronic pancreatitis and possible interventions on pseudocysts. Objective Vital signs: Temp Pulse Resp BP Pulse Ox 98.1 F 83 18 130/91 H 98 06/11/21 16:00 06/11/21 16:00 06/11/21 16:00 06/11/21 16:00 06/11/21 16:00 Narrative: not examined due to leaving AMA. Results Labs on day of discharge: Labs from last 24 hours 06/11/21 06/11/21 16:49 11:19 POC Glucose 186 H 128 H DS: Diagnosis - Discharge Diagnosis (1) Pancreatic pseudocyst Status: Acute (2) Pancreatitis Status: Chronic (3) Hypertriglyceridemia Status: Chronic (4) Type 2 diabetes mellitus Status: Chronic (5) Class 1 obesity Status: Chronic Discharge Plan - Patient Discharge Instructions Patient Instructions: DI for Pancreatitis - Follow up Plan Disposition: Left Against Medical Advice Condition at discharge:: Improving Home Medications: Home Medications Medication Instructions Recorded Confirmed Type Cetirizine HCl 10 mg PO DAILY 04/11/20 06/09/21 History Fenofibrate 160 mg PO DAILY #90 tab 04/14/20 06/09/21 Rx [place]-3 Acid Ethyl Esters [Lovaza] 2 gm PO BID #120 cap 04/14/20 06/09/21 Rx Aspirin [Adult Low Dose Aspirin EC] 81 mg PO DAILY 01/01/21 06/09/21 History Dapagliflozin Propanediol [Farxiga] 10 mg PO DAILY 01/01/21 06/09/21 History Insulin Lispro 0 unit SQ AC 01/01/21 06/09/21 History lisinopriL [Zestril 10mg Tab] 10 mg PO DAILY 01/01/21 06/09/21 History Rosuvastatin Calcium [Crestor 20 20 mg PO HS 04/12/21 06/09/21 History mg Tablets] Insulin Glargine,Hum.rec.anlog 30 units SQ HS 30 Days #3 pen 04/17/21 06/09/21 Rx [L
== END 2021-06-11 17:16 | disposition left against medical advice (07) | DRG 438 ==
LOC: ER 03:09 → 2ND 06:07
PROVIDERS: Internal Medicine Adolescent Medicine; Admitting Provider Family Medicine; Emergency Provider Emergency Medicine; PCP Internal Medicine Adolescent Medicine; Visit Provider Internal Medicine Adolescent Medicine
DX: K86.3 Pseudocyst of pancreas (principal); K85.90 Acute pancreatitis without necrosis or infection, unspecified; E11.9 Type 2 diabetes mellitus without complications; Z79.4 Long term (current) use of insulin; Z20.822 Contact with and (suspected) exposure to COVID-19; I10 Essential (primary) hypertension; Z88.8 Allergy status to other drugs, medicaments and biological substances; E78.1 Pure hyperglyceridemia
CPT/HCPCS: 36415; 71046; 74177; 80053; 80061; 81001; 82009; 82150; 82962; 83690; 83735; 85007; 85025; 85651; 86140; 96365; 96366; 96375; 96376; 99283; J2405; Q9967; U0003

== ENCOUNTER 2021-06-25 22:38 | Emergency (ER) | payer BC, SELFPAY ==
[2021-06-25 22:40] VITALS: BP 128/90; PULSE 95; RESP 18; TEMP 36.8; O2SAT 98; BMI 32.9
[2021-06-25 22:55] LABS: Appearance,Urine CLEAR (Clear); Bilirubin,Urine Negative (Negative); Blood, Urine Negative (Negative); Color,Urine YELLOW (Yellow); Glucose,Urine (UA) 2+ (Negative); Ketones,Urine Negative (Negative); Leukocyte Esterase,Urine Negative (Negative); Microscopic, Urine URINE MICROSCOPIC (MICROSCOPIC); Nitrate,Urine Negative (Negative); PH,Urine 6.5 (5.0-8.5); Protein,Urine Negative (Negative); Specific Gravity, Urine 1.025 (1.005-1.030); Urobilinogen,Urine 0.2 EU/dl (0.2)
--- NOTE | 2021-06-25 22:58 | CT_ITS ---
PROCEDURE INFORMATION: Exam: CT Abdomen And Pelvis With Contrast Exam date and time: 06/25/2021 10:58 PM Age: 45 years old Clinical indication: Abdominal pain; Localized; Left upper quadrant (luq); Prior surgery; Surgery type: Gallbladder; Patient HX: Left sided chest pain and upper abd pain, SOA; Additional info: Luq abd pain TECHNIQUE: Imaging protocol: Computed tomography of the abdomen and pelvis with contrast. Radiation optimization: All CT scans at this facility use at least one of these dose optimization techniques: automated exposure control; mA and/or kV adjustment per patient size (includes targeted exams where dose is matched to clinical indication); or iterative reconstruction. Contrast material: ISOVUE; Contrast volume: 70 ml; Contrast route: IV; COMPARISON: CT ABDOMEN PELVIS W CON 06/09/2021 4:10 AM FINDINGS: Lungs: Please see separate chest CT for evaluation of the lung bases. Mediastinal space: There is unchanged distal esophageal wall thickening. Liver: Hepatomegaly. Mildly heterogeneous appearance of the liver parenchyma suggesting chronic hepatocellular disease. Gallbladder and bile ducts: Cholecystectomy. No biliary dilation. Pancreas: Interval partial maturation of inflammatory changes surrounding the pancreas. Decreased size of the multiloculated fluid collection previously seen near the pancreatic tail, now measuring 2.1 x 1.6 cm (previously 3.5 x 3.1 cm). A 1.8 by 1.3 cm collection adjacent to the greater curvature of the stomach is also decreased in size. Dominant collection arising from the pancreatic body/neck now measures 4.7 x 3.2 cm, previously 6.2 x 4.4 cm. Few small zones of hypoenhancement within the pancreatic tail suggesting necrosis are similar prior. Spleen: Enlarged spleen, measuring 16 cm in AP dimension and 17.5 cm in craniocaudal dimension. There are a few calcified splenic granulomas. Splenic vein is poorly defined, with apparent surrounding collateral vessels, suspicious for splenic vein thrombosis. Heterogeneous enhancement of the spleen due to contrast bolus timing, without definite infarct. Adrenal glands: Unremarkable. Kidneys and ureters: Symmetric, homogeneous enhancement of both kidneys. No hydronephrosis. Stomach and bowel: Diffuse gastric wall thickening is similar to prior, potentially reactive to pancreatitis, or related to a primary gastritis. No evidence of a gastric outlet obstruction. No small or large bowel dilation/obstruction. Appendix: Normal appendix. Intraperitoneal space: Small volume ascites, decreased since prior. No pneumoperitoneum. Vasculature: Numerous upper abdominal collateral vessels. No abdominal aortic aneurysm. Lymph nodes: Borderline enlarged gastrohepatic lymph nodes measuring up to 0.9 cm in short axis. Unchanged prominent marcelo hepatis lymph node measuring 3.0 x 1.6 cm. Similar appearance of portocaval lymph nodes measuring up 1 cm in short axis. Urinary bladder: Bladder is partially decompressed, limiting its assessment. There is diffuse bladder wall thickening, which appear similar prior study. Reproductive: Unremarkable as visualized. Bones/joints: Lower lumbar disc bulging and facet osteoarthropathy with associated neural foraminal narrowing. Soft tissues: Small fat containing bilateral inguinal hernias. IMPRESSION: 1. 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 The peripancreatic fluid collections have decreased in size since prior study. 2. Similar appearance of splenomegaly. 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 3. Gastric wall thickening is simila
--- NOTE | 2021-06-25 22:58 | ECG_ITS ---
APPROVED REPORT Exam: Resting ECG HR:98 bpm ECG Measurements Heart Rate 98 AXES MT 134 P 49 QRSd 90 QRS 7 QT 346 T 50 QTc 441 Conclusion Normal sinus rhythm Normal ECG Electronically signed by : Jose Manuel Nelson MD 06/29/2021 21:02:42
--- NOTE | 2021-06-25 22:58 | CT_ITS ---
PROCEDURE INFORMATION: Exam: CTA Chest With Contrast Exam date and time: 06/25/2021 10:58 PM Age: 45 years old Clinical indication: Pain; Shortness of breath; Left-sided; Additional info: Pain and SOA with cough TECHNIQUE: Imaging protocol: Computed tomographic angiography of the chest with contrast. 3D rendering (Not supervised by radiologist): MIP and/or 3D reconstructed images were created by the technologist. Radiation optimization: All CT scans at this facility use at least one of these dose optimization techniques: automated exposure control; mA and/or kV adjustment per patient size (includes targeted exams where dose is matched to clinical indication); or iterative reconstruction. Contrast material: ISO 370; Contrast volume: 70 ml; Contrast route: INTRAVENOUS (IV); COMPARISON: CR XR CHEST AP 06/25/2021 11:12 PM FINDINGS: Pulmonary arteries: Suboptimal contrast enhancement of the pulmonary arterial circulation (measuring less than 200 Hounsfield units in the main pulmonary artery). There is no evidence of a central, lobar, or segmental pulmonary embolus. Contrast bolus is inadequate for evaluation of the subsegmental pulmonary arteries. Aorta: No aortic aneurysm. No aortic dissection. Other arteries: Left vertebral artery arises directly from the aortic arch, an anatomic variation. Lungs: There is mild linear scarring near the right apex. Mild dependent subsegmental atelectasis, left greater than right. No consolidation or specific findings of pneumonia. Calcified granulomas in the left upper and lower lobes. Pleural spaces: Trace left pleural effusion. No pneumothorax. Heart: Normal heart size. Trace pericardial fluid. Lymph nodes: Calcified left hilar mediastinal lymph nodes. No enlarged mediastinal lymph nodes by CT criteria. Bones/joints: Mild spondylosis. No acute fracture. Soft tissues: There is mild diffuse body wall edema. Abdominal findings reported separately. IMPRESSION: 1. No evidence of a large or central pulmonary embolus. Nondiagnostic assessment of subsegmental pulmonary arteries due to suboptimal contrast bolus. 2. Trace left pleural effusion. Mild dependent atelectasis, left greater than right.
--- NOTE | 2021-06-25 22:58 | XR_ITS ---
PROCEDURE INFORMATION: Exam: XR Chest Exam date and time: 06/25/2021 10:58 PM Age: 45 years old Clinical indication: Shortness of breath; Left-sided; Patient HX: Left sided chest pain and upper abd pain, SOA TECHNIQUE: Imaging protocol: XR of the chest. Views: 1 view. COMPARISON: CR XR CHEST 2V 06/09/2021 4:13 AM FINDINGS: Lungs: Mild subsegmental atelectasis at the left lung base. No focal consolidation. No overt pulmonary edema. Pleural spaces: Trace left pleural effusion. No pneumothorax. Heart/Mediastinum: Normal heart size. Bones/joints: Unremarkable. IMPRESSION: Mild left basilar atelectasis. Trace left pleural effusion.
[2021-06-25 23:05] LABS: Bacteria,Urine Trace /lpf; WBC,Urine Occasional #/hpf (0-3)
[2021-06-25 23:07] LABS: Basophils # 0.1 K/mm3 (0-0.2); Basophils % 0.8 % (0.1-2.0); Eosinophils # 0.2 K/mm3 (0.0-0.4); Eosinophils % 0.9 % (0.1-12.0); Hemoglobin 13.1 g/dL (14.1-18.0); Lymphocytes % 17.6 % (10-50); Mean Corpuscular HGB Conc 31.2 g/dL (31.8-35.4); Mean Corpuscular Hemoglobin 25.3 pg (27.0-31.2); Mean Corpuscular Volume 81.3 fl (80-94); Mean Platelet Volume 10.9 fl (7.4-10.4); Monocytes # 1.2 K/mm3 (0.1-1.0); Monocytes % 7.2 % (1.7-9.3); Neutrophils # 12.5 K/mm3 (1.8-7.8); Neutrophils % 73.5 % (37.0-80.0); Platelet Count 255 K/mm3 (142-424); Red Blood Count 5.17 M/mm3 (4.60-6.20)
[2021-06-25 23:10] LABS: Alanine Aminotransferase 12 U/L (12-78); Albumin Level 4.5 g/dl (3.5-5.0); Albumin/Globulin Ratio 1.4 (1.1-1.8); Alkaline Phosphatase 88 U/L (38-126); Amylase 105 U/L (30-110); Anion Gap 16.4 mEq/L (5-15); Aspartate Amino Transferase 15 U/L (17-59); Bilirubin,Total 1.6 mg/dl (0.2-1.3); Blood Urea Nitrogen 20 mg/dl (9-20); Calcium 11.1 mg/dl (8.4-10.2); Carbon Dioxide 29 mmol/L (22.0-30.0); Chloride 94 mmol/L (98-107); Creatinine Clearance Estimated 120 mL/min (50-200); Estimated Glomerular Filt Rate 81 ml/min (>60); GFR (African American) 98 ML/MIN (>60); Globulin 3.2 g/dL (1.3-3.2); Glucose 282 mg/dl (74-100); Lipase 356 U/L (23-300); Potassium 4.4 mmoL/L (3.5-5.1); Sodium 135 mmol/L (136-145); Total Protein,Serum 7.7 g/dl (6.3-8.2)
[2021-06-25 23:11] LABS: MANUAL DIFFERENTIAL MANUAL DIFFERENTIAL (MANUAL DIFF)
[2021-06-25 23:15] LABS: C-Reactive Protein 167.4 mg/L (0-4)
[2021-06-25 23:19] LABS: Eosinophils % 1 % (0-3); Lymphocytes % 14 % (10-50); Monocytes % 9 % (2-9); Neutrophils % 76 % (42-76); Platelet Estimate Normal; Total Cells Counted 100
[2021-06-25 23:20] LABS: Microcytosis 1+; Spherocytes 1+
[2021-06-25 23:21] LABS: Coronavirus 19, PCR Not Detected (NotDetected); Influenza A, PCR Not Detected (NotDetected); Influenza B, PCR Not Detected (NotDetected)
[2021-06-25 23:28] LABS: Troponin I < 0.01 ng/ml (0.00-0.034)
[2021-06-25 23:29] LABS: Procalcitonin 0.274 ng/mL (0.0-2.0)
[2021-06-25 23:30] LABS: Acetone, Serum (Rapid) None Detected (None Detect)
[2021-06-25 23:35] LABS: Erythrocyte Sedimentation Rate 25 mm/hr (0-15)
[2021-06-25 23:44] VITALS: BP 136/93; PULSE 91; O2SAT 98
[2021-06-26] VITALS: BP 153/91; PULSE 93; O2SAT 97
[2021-06-26 00:30] VITALS: BP 132/80; PULSE 98; O2SAT 97
--- NOTE | 2021-06-26 01:11 | HMH.EDNVD ---
ED Disposition Clinical Impression: Pancreatic pseudocyst, Cough Type 2 diabetes mellitus Qualifiers: Diabetes mellitus intermediate accountant insulin use: unspecified intermediate accountant insulin use status Diabetes mellitus complication status: with other specified complication Qualified Code(s): E11.69 - Type 2 diabetes mellitus with other specified complication Disposition: Home, Self-Care Condition on Discharge: Good Instructions: DI for Acute Abdominal Pain Additional Instructions: call pcp in am and stop lisinopril Referrals: Sebas Talley MD [Primary Care Provider] - - Critical Care Critical Care Time: No Attestation: On 06/25/21, the high probability of a clinically significant, sudden or life threatening deterioration of the following system(s) required my full and direct attention, intervention and personal management. The time I documented below is in addition to time spent performing reported procedures but includes the following listed in this critical care notation. Medical Decision Making - Medical Records Medical records reviewed: Yes: I reviewed the patient's medical records. - Raymond Inquiry Pt receiving controlled substance: No Vital Signs: 06/25/21 22:40 06/25/21 23:44 06/26/21 00:00 Temperature 98.2 F Temperature Source Oral Pulse Rate 91 H 93 H Pulse Rate [Right Radial] 95 H Respiratory Rate 18 Blood Pressure 136/93 H 153/91 H Blood Pressure [Right Arm] 128/90 Blood Pressure Mean [Right Arm] 102 Blood Pressure Source [Right Arm] Automatic Cuff Blood Pressure Position [Right Arm] Sitting 02 Sat by Pulse Oximetry 98 98 97 Oxygen Delivery Method Room Air 06/26/21 00:30 Temperature Temperature Source Pulse Rate 98 H Pulse Rate [Right Radial] Respiratory Rate Blood Pressure 132/80 Blood Pressure [Right Arm] Blood Pressure Mean [Right Arm] Blood Pressure Source [Right Arm] Blood Pressure Position [Right Arm] 02 Sat by Pulse Oximetry 97 Oxygen Delivery Method - Lab Data Lab results reviewed: Yes: I reviewed the patient's lab results. Lab Results 06/25/21 22:10: WBC 17.0 H, RBC 5.17, Hgb 13.1 L, Hct 42.0, MCV 81.3, MCH 25.3 L, MCHC 31.2 L, RDW 15.0, Plt Count 255, MPV 10.9 H, Neut % (Auto) 73.5, Lymph % (Auto) 17.6, [place] % (Auto) 7.2, Eos % (Auto) 0.9, Baso % (Auto) 0.8, Neut # (Auto) 12.5 H, Lymph # (Auto) 3.0, Ramsey # (Auto) 1.2 H, Eos # (Auto) 0.2, Baso # (Auto) 0.1, Total Counted 100, Neutrophils % (Manual) 76, Lymphocytes % (Manual) 14, Monocytes % (Manual) 9, Eosinophils % (Manual) 1, Platelet Estimate Normal, Microcytosis 1+, Spherocytes 1+, ESR 25 H 06/25/21 22:10: Sodium 135 L, Potassium 4.4, Chloride 94 L, Carbon Dioxide 29, Anion Gap 16.4 H, BUN 20, Creatinine 1.00, Estimated Creat Clear 120, Estimated GFR 81, Est GFR ( Amer) 98, Glucose 282 H, Calcium 11.1 H, Total Bilirubin 1.6 H, AST 15 L, ALT 12, Alkaline Phosphatase 88, Troponin I < 0.01, C-Reactive Protein 167.4 H, Total Protein 7.7, Albumin 4.5, Globulin 3.2, Albumin/Globulin Ratio 1.4, Amylase 105, Lipase 356 H, Procalcitonin 0.274 06/25/21 22:50: Urine Color Yellow, Urine Appearance Clear, Urine pH 6.5, Ur Specific [place] 1.025, Urine Protein Negative, Urine Glucose (UA) 2+, Urine Ketones Negative, Urine Blood Negative, Urine Nitrate Negative, Urine Bilirubin Negative, Urine Urobilinogen 0.2, Ur Leukocyte Esterase Negative, Urine WBC Occasional, Urine Bacteria Trace 06/25/21 23:10: Acetone Level None detected 06/25/21 23:12: SARS-CoV-2 (PCR) Not detected, Influenza A Untype (PCR) Not detected, Influenza Type B (PCR) Not detected Result diagrams: 06/25/21 22:10 06/25/21 22:10 Orders (Tests/Meds): ED MEDICATIONS Generic Name Dose Route Start Last Admin Trade Name Freq PRN Reason Stop Dose Admin Lactated Ringer's 1,000 mls @ 999 mls/hr 06/25/21 23:00 06/25/21 23:05 Lactated Ringer's 1000 Ml Bag IV 06/26/21 00:00 999 mls/hr .Q1H1M LOREE Administration Discontinued Medications Gen
[2021-06-26 01:29] VITALS: BP 151/95; PULSE 96; RESP 21; TEMP 37.2; O2SAT 97
== END 2021-06-26 01:32 | disposition home or self-care (01) ==
PROVIDERS: Emergency Provider Emergency Medicine; PCP Internal Medicine Adolescent Medicine
DX: K86.3 Pseudocyst of pancreas (principal); E11.65 Type 2 diabetes mellitus with hyperglycemia; Z20.822 Contact with and (suspected) exposure to COVID-19; E78.5 Hyperlipidemia, unspecified; I10 Essential (primary) hypertension; Z79.899 Other long term (current) drug therapy
CPT/HCPCS: 71045; 71275; 74177; 80053; 81001; 82009; 82150; 83690; 84145; 84484; 85007; 85025; 85651; 86140; 93005; 96374; 96375; 99284; J2405; Q9967; U0003

== ENCOUNTER 2021-07-13 01:39 | Emergency (ER) | payer BC, SELFPAY ==
[2021-07-13 01:40] VITALS: BP 170/105; PULSE 89; RESP 21; TEMP 36.5; O2SAT 97; BMI 32.5
[2021-07-13 02:29] LABS: Microscopic, Urine URINE MICROSCOPIC (MICROSCOPIC)
[2021-07-13 02:31] LABS: Basophils # 0.1 K/mm3 (0-0.2); Basophils % 0.6 % (0.1-2.0); Eosinophils # 0.2 K/mm3 (0.0-0.4); Eosinophils % 1.2 % (0.1-12.0); Hematocrit 43.3 % (42.0-52.0); Hemoglobin 13.2 g/dL (14.1-18.0); Lymphocytes # 1.8 K/mm3 (0.7-4.5); Lymphocytes % 11.2 % (10-50); Mean Corpuscular HGB Conc 30.6 g/dL (31.8-35.4); Mean Corpuscular Hemoglobin 24.7 pg (27.0-31.2); Mean Corpuscular Volume 80.9 fl (80-94); Mean Platelet Volume 11.1 fl (7.4-10.4); Monocytes # 0.8 K/mm3 (0.1-1.0); Monocytes % 5.2 % (1.7-9.3); Neutrophils # 12.9 K/mm3 (1.8-7.8); Neutrophils % 81.7 % (37.0-80.0); Platelet Count 195 K/mm3 (142-424); Red Blood Count 5.35 M/mm3 (4.60-6.20); Red Cell Distribution Width 15.2 % (11.5-17.5); White Blood Count 15.7 K/mm3 (4.8-10.8)
--- NOTE | 2021-07-13 02:40 | HMH.EDGENADL ---
ED Disposition Clinical Impression: Left upper quadrant abdominal pain Chronic pancreatitis Qualifiers: Pancreatitis type: unspecified pancreatitis type Qualified Code(s): K86.1 - Other chronic pancreatitis Disposition: Home, Self-Care Condition on Discharge: Fair Instructions: DI for Acute Abdominal Pain, DI for Pancreatitis, Chronic Pancreatitis Additional Instructions: Call your primary care provider today for follow-up. Referrals: Sebas Talley MD [Primary Care Provider] - - Critical Care Critical Care Time: No Attestation: On 07/13/21, the high probability of a clinically significant, sudden or life threatening deterioration of the following system(s) required my full and direct attention, intervention and personal management. The time I documented below is in addition to time spent performing reported procedures but includes the following listed in this critical care notation. Medical Decision Making - Raymond Inquiry Pt receiving controlled substance: Yes Raymond was queried for this patient: Yes Risks and benefits of using a controlled substance: were not discussed with pt by me Vital Signs: 07/13/21 01:40 Temperature 97.7 F Temperature Source Oral Pulse Rate [Right] 89 Respiratory Rate 21 Blood Pressure [Right Arm] 170/105 H Blood Pressure Mean [Right Arm] 126 02 Sat by Pulse Oximetry 97 Oxygen Delivery Method Room Air - Lab Data Lab Results 07/13/21 01:45: Urine Color Yellow, Urine Appearance Clear, Urine pH 5.5, Ur Specific [place] >= 1.030, Urine Protein Negative, Urine Glucose (UA) 3+, Urine Ketones Negative, Urine Blood Negative, Urine Nitrate Negative, Urine Bilirubin Negative, Urine Urobilinogen 0.2, Ur Leukocyte Esterase Negative, Calcium Oxalate Crystal 3+, Urine Mucus Trace 07/13/21 02:22: WBC 15.7 H, RBC 5.35, Hgb 13.2 L, Hct 43.3, MCV 80.9, MCH 24.7 L, MCHC 30.6 L, RDW 15.2, Plt Count 195, MPV 11.1 H, Neut % (Auto) 81.7 H, Lymph % (Auto) 11.2, [place] % (Auto) 5.2, Eos % (Auto) 1.2, Baso % (Auto) 0.6, Neut # (Auto) 12.9 H, Lymph # (Auto) 1.8, [place] # (Auto) 0.8, Eos # (Auto) 0.2, Baso # (Auto) 0.1, Total Counted 100, Neutrophils % (Manual) 74, Band Neutrophils % 12.0 H, Lymphocytes % (Manual) 12, Monocytes % (Manual) 2, Platelet Estimate Normal, Hypochromasia 1+, Microcytosis 1+ 07/13/21 02:22: Sodium 136, Potassium 4.9, Chloride 102, Carbon Dioxide 24, Anion Gap 14.9, BUN 18, Creatinine 1.00, Estimated Creat Clear 119, Estimated GFR 81, Est GFR ( Amer) 98, Glucose 401 H*, Calcium 10.8 H, Total Bilirubin 0.3, AST 19, ALT 13, Alkaline Phosphatase 101, Total Protein 7.2, Albumin 4.2, Globulin 3.0, Albumin/Globulin Ratio 1.4, Amylase 109, Lipase 274 Result diagrams: 07/13/21 02:22 07/13/21 02:22 Orders (Tests/Meds): ED MEDICATIONS Discontinued Medications Generic Name Dose Route Start Last Admin Trade Name Freq PRN Reason Stop Dose Admin Hydromorphone HCl 1 mg 07/13/21 02:44 07/13/21 02:55 Hydromorphone 2mg/Ml Syringe IV 07/13/21 02:45 1 mg ONCE ONE Administration Insulin Human Regular 5 unit 07/13/21 03:01 07/13/21 03:15 Insulin Human Regular 100 Units/Ml 10ml Vial IVP 07/13/21 03:02 5 unit ONCE ONE Administration Ondansetron HCl 4 mg 07/13/21 02:44 07/13/21 02:55 Ondansetron 4mg/2ml Vial IV 07/13/21 02:45 4 mg ONCE ONE Administration Sodium Chloride 1,000 ml 07/13/21 02:45 07/13/21 03:09 Sodium Chloride 0.9% 1000ml Bag IV 07/13/21 02:46 1,000 ml BOLUS ONE Administration ORDERS Category Date Time Status CT abdomen pelvis w con Stat Cat Scan 07/13/21 02:45 Ordered - Reevaluation(s) Time: 03:37 Reevaluation #1: Patient is no longer screaming, moaning, or writhing. Appears comfortable. States the pain is improved, but still present. States that his mom is waiting to take him home. We will administer 1 more dose of pain medication and discharge. Medical Decision Narrative: Patient refuses CT scan of abdomen
[2021-07-13 02:43] LABS: MANUAL DIFFERENTIAL MANUAL DIFFERENTIAL (MANUAL DIFF)
[2021-07-13 02:44] LABS: Chloride 102 mmol/L (98-107); Potassium 4.9 mmoL/L (3.5-5.1); Sodium 136 mmol/L (136-145)
[2021-07-13 02:47] LABS: Alanine Aminotransferase 13 U/L (12-78); Alkaline Phosphatase 101 U/L (38-126); Amylase 109 U/L (30-110); Anion Gap 14.9 mEq/L (5-15); Aspartate Amino Transferase 19 U/L (17-59); Bilirubin,Total 0.3 mg/dl (0.2-1.3); Blood Urea Nitrogen 18 mg/dl (9-20); Calcium 10.8 mg/dl (8.4-10.2); Carbon Dioxide 24 mmol/L (22.0-30.0); Creatinine Clearance Estimated 119 mL/min (50-200); Estimated Glomerular Filt Rate 81 ml/min (>60); GFR (African American) 98 ML/MIN (>60); Lipase 274 U/L (23-300)
[2021-07-13 02:48] LABS: Albumin Level 4.2 g/dl (3.5-5.0); Albumin/Globulin Ratio 1.4 (1.1-1.8); Total Protein,Serum 7.2 g/dl (6.3-8.2)
[2021-07-13 02:52] LABS: Appearance,Urine CLEAR (Clear); Bilirubin,Urine Negative (Negative); Blood, Urine Negative (Negative); Color,Urine YELLOW (Yellow); Glucose,Urine (UA) 3+ (Negative); Ketones,Urine Negative (Negative); Leukocyte Esterase,Urine Negative (Negative); Nitrate,Urine Negative (Negative); PH,Urine 5.5 (5.0-8.5); Protein,Urine Negative (Negative); Specific Gravity, Urine >= 1.030 (1.005-1.030); Urobilinogen,Urine 0.2 EU/dl (0.2)
[2021-07-13 02:54] LABS: Calcium Oxalate Crystals,Urine 3+ /lpf; Mucus,Urine Trace /lpf
[2021-07-13 02:55] LABS: Hypochromasia 1+; Lymphocytes % 12 % (10-50); Microcytosis 1+; Monocytes % 2 % (2-9); Neutrophils % 74 % (42-76); Platelet Estimate Normal; Total Cells Counted 100
[2021-07-13 02:59] LABS: Glucose 401 mg/dl (74-100)
--- NOTE | 2021-07-13 03:08 | PC.NURSE ---
Pt is refusing CT scan
[2021-07-13 03:51] VITALS: BP 135/84; PULSE 88; RESP 19; TEMP 36.7; O2SAT 95
[2021-07-14 11:07] LABS: Chol/HDL Ratio 6.5 (1-3.5); Cholesterol 129 mg/dl (140-200); HDL Cholesterol 20 mg/dl (40-60); Triglycerides 361 mg/dl (30-150); VLDL Cholesterol 72 mg/dL (0-40)
[2021-07-14 11:18] LABS: Direct LDL Cholesterol 55.78 mg/dL (100-129)
[2021-07-14 12:03] LABS: Hemoglobin A1C 10.7 % (4.0-6.0)
== END 2021-07-13 03:59 | disposition home or self-care (01) ==
PROVIDERS: Emergency Provider Emergency Medicine; PCP Internal Medicine Adolescent Medicine
DX: R10.12 Left upper quadrant pain (principal); K86.1 Other chronic pancreatitis; E11.9 Type 2 diabetes mellitus without complications; E78.5 Hyperlipidemia, unspecified; I10 Essential (primary) hypertension; Z79.899 Other long term (current) drug therapy
CPT/HCPCS: 80053; 80061; 81001; 82150; 83036; 83690; 85007; 85025; 96365; 96375; 96376; 99283; J2405

== ENCOUNTER → 2021-10-08 10:17 | Outpatient (CLI) | payer BC, SELFPAY ==
[2021-10-08 11:15] LABS: Hemoglobin A1C > 14.0 % (4.0-6.0)
== END ==
LOC: LAB 10:17
PROVIDERS: Visit Provider Internal Medicine Adolescent Medicine
DX: E11.9 Type 2 diabetes mellitus without complications (principal); Z79.4 Long term (current) use of insulin
CPT/HCPCS: 36415; 83036

== ENCOUNTER 2021-12-23 19:59 | Emergency (ER) | payer MEDICAID, SELFPAY ==
[2021-12-23 21:01] VITALS: BP 125/83; PULSE 77; RESP 18; TEMP 36.8; O2SAT 95; BMI 32.4
--- NOTE | 2021-12-23 21:01 | HMH.EDUTC ---
[facility] [place] Disposition Clinical Impression: Exposure to COVID-19 virus, Viral syndrome Disposition: Home, Self-Care Condition on Discharge: Good Instructions: DI for COVID-19 (Suspected or Confirmed ), Preventing the Spread of Coronavirus Discharge Instructions Additional Instructions: Drink plenty of fluids. Take tylenol or ibuprofen for pain or fever. Take the medications as directed. Follow up with your regular doctor. GO TO THE ER FOR ANY WORSENING SYMPTOMS Quarantine until you know the results of your covid-19 test. Notify your school or workplace of your results and follow their instructions regarding return to work/school. Referrals: Sebas Talley MD [Primary Care Provider] - Time of Disposition: 21:42 Medical Decision Making - Medical Records Medical records reviewed: No: I reviewed the patient's medical records. - Raymond Inquiry Pt receiving controlled substance: No Vital Signs: 12/23/21 21:01 12/23/21 21:19 Temperature 98.2 F 98.2 F Temperature Source Oral Pulse Rate 77 Pulse Rate [Left] 77 Respiratory Rate 18 18 Blood Pressure 125/83 Blood Pressure [Right Arm] 125/83 Blood Pressure Mean [Right Arm] 97 02 Sat by Pulse Oximetry 95 Orders (Tests/Meds): ORDERS Category Date Time Status Covid-19 Nasal PCR ([facility]) Routine Lab 12/23/21 21:04 Received [facility] [place] HPI - General Stated complaint: cOVID TEST Time Seen by Provider: 12/23/21 21:01 - History of Present Illness Provider Complaint: He has been exposed to covid-19 in his home. He is here to have a test. He has been having some body aches as his only symptoms. - Related Data Home Medications Medication Instructions Recorded Confirmed Cetirizine HCl 10 mg PO DAILY 04/11/20 06/09/21 Aspirin [Adult Low Dose Aspirin EC] 81 mg PO DAILY 01/01/21 06/09/21 Dapagliflozin Propanediol [Farxiga] 10 mg PO DAILY 01/01/21 06/09/21 Insulin Lispro 0 unit SQ AC 01/01/21 06/09/21 lisinopriL [Zestril 10mg Tab] 10 mg PO DAILY 01/01/21 06/09/21 Rosuvastatin Calcium [Crestor 20 20 mg PO HS 04/12/21 06/09/21 mg Tablets] Lipase/Protease/Amylase [Zenpep Dr 1 cap PO TID 06/09/21 06/09/21 20,000 Unit Capsule] Previous Rx's Medication Instructions Recorded Fenofibrate 160 mg PO DAILY #90 tab 04/14/20 [place]-3 Acid Ethyl Esters [Lovaza] 2 gm PO BID #120 cap 04/14/20 Insulin Glargine,Hum.rec.anlog 30 units SQ HS 30 Days #3 pen 04/17/21 [Lantus Solostar 100 Units/mL 3mL flexpen] Allergies Allergy/AdvReac Type Severity Reaction Status Date / Time atorvastatin [From Lipitor] Allergy Joint Pain Verified 06/09/21 10:46 niacin Allergy Verified 06/09/21 10:46 [facility] History - Hepatitis A Screen Attestation statement:: This patient has been screened for Hepatitis A risk factors. I have reviewed the patient's past medical history: Yes Medical History: Reports:: Diabetes Mellitus Type 2, Hyperlipidemia, Hypertension Denies:: Cancer, Diabetes Mellitus Type 1, MRSA Other Surgeries: Yes: Cholecystectomy, Other Amputation: No Fractures: No - Social History Smoking Status: Never smoker Alcohol Intake: current Alcohol Intake Frequency:: a few times a month Substance Use Type: denies use Occupational Status: employed Housing: house Household Members: spouse Family Hx:: No significant family history ROS Obtained: Yes All systems reviewed & no additional complaints - Constitutional Constitutional: Reports as per HPI - Eyes Eyes: Denies eye discharge - ENT Ears, Nose, Mouth, and Throat: Reports as per HPI - Cardiovascular Cardiovascular: Denies chest pain - Respiratory Respiratory: Denies chest congestion, Denies cough, Denies dyspnea, Denies stridor, Denies wheezing - Gastrointestinal Gastrointestingal: Denies: abdominal pain, diarrhea, nausea, vomiting Physical Exam - General General appearance: alert, in no apparent distress - Head Head exam: atraumatic, normocephalic, n
[2021-12-23 21:19] VITALS: BP 125/83; PULSE 77; RESP 18; TEMP 36.8
== END 2021-12-23 21:45 | disposition home or self-care (01) ==
PROVIDERS: Emergency Provider Nurse Practitioner Family; PCP Internal Medicine Adolescent Medicine
DX: B34.9 Viral infection, unspecified (principal); Z20.822 Contact with and (suspected) exposure to COVID-19; E11.9 Type 2 diabetes mellitus without complications; E78.5 Hyperlipidemia, unspecified
CPT/HCPCS: 99212; C9803; G0463; U0003; U0005

== ENCOUNTER 2021-12-28 13:25 | Emergency (ER) | payer MEDICAID, SELFPAY ==
[2021-12-28 14:32] VITALS: BP 135/87; PULSE 74; RESP 16; TEMP 36.6; O2SAT 96; BMI 32.3
--- NOTE | 2021-12-28 15:06 | HMH.EDUTC ---
[facility] [place] Disposition Clinical Impression: COVID-19 Disposition: Home, Self-Care Condition on Discharge: Good Instructions: DI for COVID-19 (Suspected or Confirmed ), Preventing the Spread of Coronavirus Discharge Instructions Additional Instructions: Drink plenty of fluids. Take tylenol or ibuprofen for pain or fever. Take the medications as directed. Follow up with your regular doctor. GO TO THE ER FOR ANY WORSENING SYMPTOMS Quarantine until you know the results of your covid-19 test. Notify your school or workplace of your results and follow their instructions regarding return to work/school. Prescriptions: Ondansetron [Zofran 4mg ODT] 4 mg PO Q8HP PRN #20 tab PRN Reason: Nausea Transmission Status: Received by [id number] Benzonatate [Benzonatate 100mg cap] 100 mg PO TIDP PRN #30 cap PRN Reason: Cough Transmission Status: Received by [id number] Referrals: Sebas Talley MD [Primary Care Provider] - Forms: Work/School Release Time of Disposition: 15:15 Medical Decision Making - Medical Records Medical records reviewed: No: I reviewed the patient's medical records. - Raymond Inquiry Pt receiving controlled substance: No Vital Signs: 12/28/21 14:32 12/28/21 15:51 Temperature 98 F 98 F Temperature Source Oral Pulse Rate 74 Pulse Rate [Left] 74 Respiratory Rate 16 16 Blood Pressure 135/87 Blood Pressure [Right Arm] 135/87 Blood Pressure Mean [Right Arm] 103 02 Sat by Pulse Oximetry 96 - Lab Data Lab results reviewed: Yes: I reviewed the patient's lab results. [facility] [place] HPI - General Stated complaint: fever,cough, wants covid test Time Seen by Provider: 12/28/21 15:06 Mode of Arrival: Ambulatory Source of Information: Patient Limitations: No Limitations Description of Symptoms (Recalled from Triage Doc. by RN): pt had a positive at home covid test. pt needs an official for work. HEENT Symptoms (Recalled from RN notes): No Resp Symptoms (Recalled from RN notes): No Skin Symptoms (Recalled from RN notes): No MS Symptoms (Recalled from RN notes): No Functional Status (Recalled from RN notes): wnl - History of Present Illness Provider Complaint: He states that he has felt bad for the past 2 days. He has had low grade fever, chills, nausea, and a dry cough. His tested positive for covid-19 last week. He tested positive at home on a home test this morning. He needs a pcr test to confirm this for his job at [employer]. - Related Data Home Medications Medication Instructions Recorded Confirmed Cetirizine HCl 10 mg PO DAILY 04/11/20 06/09/21 Aspirin [Adult Low Dose Aspirin EC] 81 mg PO DAILY 01/01/21 06/09/21 Dapagliflozin Propanediol [Farxiga] 10 mg PO DAILY 01/01/21 06/09/21 Insulin Lispro 0 unit SQ AC 01/01/21 06/09/21 lisinopriL [Zestril 10mg Tab] 10 mg PO DAILY 01/01/21 06/09/21 Rosuvastatin Calcium [Crestor 20 20 mg PO HS 04/12/21 06/09/21 mg Tablets] Lipase/Protease/Amylase [Zenpep Dr 1 cap PO TID 06/09/21 06/09/21 20,000 Unit Capsule] Previous Rx's Medication Instructions Recorded Fenofibrate 160 mg PO DAILY #90 tab 04/14/20 [place]-3 Acid Ethyl Esters [Lovaza] 2 gm PO BID #120 cap 04/14/20 Insulin Glargine,Hum.rec.anlog 30 units SQ HS 30 Days #3 pen 04/17/21 [Lantus Solostar 100 Units/mL 3mL flexpen] Benzonatate [Benzonatate 100mg 100 mg PO TIDP PRN #30 cap 12/28/21 cap] Ondansetron [Zofran 4mg ODT] 4 mg PO Q8HP PRN #20 tab 12/28/21 Allergies Allergy/AdvReac Type Severity Reaction Status Date / Time atorvastatin [From Lipitor] Allergy Joint Pain Verified 06/09/21 10:46 niacin Allergy Verified 06/09/21 10:46 - Worker's Comp Is this a Worker's Comp case?: No H History - Hepatitis A Screen Drug use history?: No High risk sexual behaviors?: No History of sexually transmitted infection?: No Currently employed?: No Childcare worker?: No Do you have indoor plumbing?: Yes Do y
[2021-12-28 15:51] VITALS: BP 135/87; PULSE 74; RESP 16; TEMP 36.6
== END 2021-12-28 15:51 | disposition home or self-care (01) ==
PROVIDERS: Emergency Provider Nurse Practitioner Family; PCP Internal Medicine Adolescent Medicine
DX: U07.1 COVID-19 (principal); I10 Essential (primary) hypertension; E78.5 Hyperlipidemia, unspecified; E11.9 Type 2 diabetes mellitus without complications; Z79.4 Long term (current) use of insulin; Z79.82 Long term (current) use of aspirin; Z79.899 Other long term (current) drug therapy; Z88.8 Allergy status to other drugs, medicaments and biological substances; Z91.048 Other nonmedicinal substance allergy status
CPT/HCPCS: 99213; C9803; G0463; U0003; U0005

== ENCOUNTER 2022-11-11 13:03 | Emergency (ER) | payer OTHER, SELFPAY ==
[2022-11-11 14:10] VITALS: BP 126/92; PULSE 75; RESP 20; TEMP 36.9; O2SAT 96; BMI 36.0
--- NOTE | 2022-11-11 14:18 | EXP.UTC ---
Discharge Plan Disposition Patient Disposition: Home, Self-Care Condition: Good Prescriptions Prescriptions: New azithromycin [Zithromax] 250 mg tablet 250 mg PO UD DOSE PK Qty: 6 0RF Rx Instructions: Take two (2) tablets today, then one (1) tablet days #2 thru #5 benzonatate [benzonatate] 100 mg capsule 100 mg PO TIDP PRN (Reason: Cough) Qty: 30 0RF guaifenesin [Mucinex] 600 mg tablet extended release 12hr 600 - 1,200 mg PO BIDP PRN (Reason: Congestion) Qty: 30 0RF methylprednisolone 4 mg Tablets,Dose Pack 4 mg PO DIRECTED Qty: 21 0RF No Action cetirizine 10 MG tablet 10 mg PO DAILY omega-3 acid ethyl esters 1 GM capsule 2 gm PO BID Qty: 120 0RF fenofibrate 160 MG tablet 160 mg PO DAILY Qty: 90 0RF rosuvastatin 20 MG tablet 20 mg PO HS insulin glargine 100 UNIT/ML insulin pen 30 units SQ HS 30 Days Qty: 3 0RF Rx Instructions: sliding scale benzonatate 100 MG capsule 100 mg PO TIDP PRN (Reason: Cough) Qty: 30 0RF ondansetron 4 MG tablet,disintegrating 4 mg PO Q8HP PRN (Reason: Nausea) Qty: 20 0RF insulin lispro 100 UNIT/ML solution 0 unit SQ AC Rx Instructions: Sliding Scale aspirin 81 MG tablet,delayed release (DR/EC) 81 mg PO DAILY lisinopril 10 MG tablet 10 mg PO DAILY dapagliflozin 10 MG tablet 10 mg PO DAILY [id number] 1 EACH capsule,delayed release(DR/EC) 1 cap PO TID Referrals Follow up/Referrals: Jose Manuel Nelson MD [Primary Care Provider] - See instructions Activity Restrictions/Add. Instructions Additional Instructions/Restrictions: Drink plenty of fluids. Take tylenol or ibuprofen for pain or fever. Take the medications as directed. Follow up with your regular doctor. GO TO THE ER FOR ANY WORSENING SYMPTOMS Clinical Impressions Clinical Impression: Asthma exacerbation, Sinusitis Stand Alone Forms Stand Alone Forms: Work/School Release Instructions Patient Instructions: Asthma -- Adult, DI for Asthma -- Adult, DI for Sinusitis Discharge ED Provider: Sebas Torres [facility] General Stated complaint: Fever, Sore throat, BRADY, cough Time Seen by Provider: 11/11/22 14:18 History of Present Illness Provider Complaint: He states that for the past 5 days he has had sinus congestion, headache, chest congestion and a cough. Related Data Home Medications Medication Instructions Recorded Confirmed cetirizine 10 mg tablet 10 mg PO DAILY Allergy symptoms 04/11/20 06/09/21 aspirin 81 mg tablet,delayed 81 mg PO DAILY HEART HEALTH 01/01/21 06/09/21 release dapagliflozin 10 mg tablet 10 mg PO DAILY Diabetes 01/01/21 06/09/21 insulin lispro 100 unit/mL 0 unit SQ AC Diabetes 01/01/21 06/09/21 subcutaneous solution lisinopril 10 mg tablet 10 mg PO DAILY Hypertension 01/01/21 06/09/21 rosuvastatin 20 mg tablet 20 mg PO HS Cholesterol 04/12/21 06/09/21 [id number] 1 cap PO TID PANCREATIC 06/09/21 06/09/21 20,000-63,000-84,000 unit capsule, INSUFFICIENCY delayed rel Previous Rx's Medication Instructions Recorded fenofibrate 160 mg tablet 160 mg PO DAILY Cholesterol #90 04/14/20 tabs omega-3 acid ethyl esters 1 gram 2 gm PO BID Cholesterol #120 caps 04/14/20 capsule insulin glargine 100 unit/mL (3 30 units (0.3 mL) SQ HS Diabetes 04/17/21 mL) subcutaneous pen 30 days ##3 benzonatate 100 mg capsule 100 mg PO TIDP PRN Cough #30 caps 12/28/21 ondansetron 4 mg disintegrating 4 mg PO Q8HP PRN Nausea #20 tabs 12/28/21 tablet azithromycin 250 mg tablet 250 mg PO UD DOSE PK #6 tabs 11/11/22 (Zithromax) benzonatate 100 mg capsule 100 mg PO TIDP PRN Cough #30 caps 11/11/22 guaifenesin 600 mg tablet, 600 - 1,200 mg PO BIDP PRN 11/11/22 extended release 12 hr (Mucinex) Congestion #30 tabs methylprednisolone 4 mg tablets in 4 mg PO DIRECTED #21 tabs 11/11/22 a dose pack Allergies Allergy/AdvReac Type Severity Reaction Sta
[2022-11-11 14:24] LABS: UTC Strep Screen (Rapid) Negative (Negative)
[2022-11-11 14:25] LABS: UTC Influenza A Antigen Negative (Negative); UTC Influenza B Antigen Negative (Negative)
[2022-11-11 15:02] VITALS: BP 126/92; PULSE 75; RESP 20; TEMP 36.9; O2SAT 96
== END 2022-11-11 15:02 | disposition home or self-care (01) ==
PROVIDERS: Emergency Provider Nurse Practitioner Family; PCP Internal Medicine Adolescent Medicine
DX: J45.901 Unspecified asthma with (acute) exacerbation (principal); J32.9 Chronic sinusitis, unspecified
CPT/HCPCS: 87804; 87880; 99212; 99213; C9803; G0463; U0003; U0005

== ENCOUNTER 2022-11-15 17:17 | Emergency (ER) | payer OTHER, SELFPAY ==
[2022-11-15 17:17] VITALS: BP 144/90; PULSE 91; RESP 20; TEMP 36.7; O2SAT 96; BMI 35.7
--- NOTE | 2022-11-15 17:26 | EXP.UTC ---
Discharge Plan Disposition Patient Disposition: Home, Self-Care Condition: Good Prescriptions Prescriptions: New ondansetron 4 mg Tablet,Disintegrating 4 mg PO Q8H PRN (Reason: Nausea) Qty: 12 0RF No Action cetirizine 10 MG tablet 10 mg PO DAILY omega-3 acid ethyl esters 1 GM capsule 2 gm PO BID Qty: 120 0RF fenofibrate 160 MG tablet 160 mg PO DAILY Qty: 90 0RF rosuvastatin 20 MG tablet 20 mg PO HS insulin glargine 100 UNIT/ML insulin pen 30 units SQ HS 30 Days Qty: 3 0RF Rx Instructions: sliding scale benzonatate 100 MG capsule 100 mg PO TIDP PRN (Reason: Cough) Qty: 30 0RF ondansetron 4 MG tablet,disintegrating 4 mg PO Q8HP PRN (Reason: Nausea) Qty: 20 0RF azithromycin [Zithromax] 250 mg tablet 250 mg PO UD DOSE PK Qty: 6 0RF Rx Instructions: Take two (2) tablets today, then one (1) tablet days #2 thru #5 benzonatate [benzonatate] 100 mg capsule 100 mg PO TIDP PRN (Reason: Cough) Qty: 30 0RF guaifenesin [Mucinex] 600 mg tablet extended release 12hr 600 - 1,200 mg PO BIDP PRN (Reason: Congestion) Qty: 30 0RF methylprednisolone 4 mg Tablets,Dose Pack 4 mg PO DIRECTED Qty: 21 0RF insulin lispro 100 UNIT/ML solution 0 unit SQ AC Rx Instructions: Sliding Scale aspirin 81 MG tablet,delayed release (DR/EC) 81 mg PO DAILY lisinopril 10 MG tablet 10 mg PO DAILY dapagliflozin 10 MG tablet 10 mg PO DAILY [id number] 1 EACH capsule,delayed release(DR/EC) 1 cap PO TID Referrals Follow up/Referrals: Jose Manuel Nelson MD [Primary Care Provider] - See instructions Activity Restrictions/Add. Instructions Additional Instructions/Restrictions: Drink plenty of fluids. Take tylenol or ibuprofen for pain or fever. Take the medications as directed. Follow up with your regular doctor. GO TO THE ER FOR ANY WORSENING SYMPTOMS Clinical Impressions Clinical Impression: Acute viral syndrome Stand Alone Forms Stand Alone Forms: Work/School Release Instructions Patient Instructions: DI for Viral Syndrome Discharge ED Provider: Sebas Torres [facility] General Stated complaint: h/a, dizzy Time Seen by Provider: 11/15/22 17:26 History of Present Illness Provider Complaint: He is back for a follow up from his previous visit. He states that he does feel some better than before, but he is still having headaches, sore throat, and malaise. His congestion has basically resolved. Related Data Home Medications Medication Instructions Recorded Confirmed cetirizine 10 mg tablet 10 mg PO DAILY Allergy symptoms 04/11/20 06/09/21 aspirin 81 mg tablet,delayed 81 mg PO DAILY HEART HEALTH 01/01/21 06/09/21 release dapagliflozin 10 mg tablet 10 mg PO DAILY Diabetes 01/01/21 06/09/21 insulin lispro 100 unit/mL 0 unit SQ AC Diabetes 01/01/21 06/09/21 subcutaneous solution lisinopril 10 mg tablet 10 mg PO DAILY Hypertension 01/01/21 06/09/21 rosuvastatin 20 mg tablet 20 mg PO HS Cholesterol 04/12/21 06/09/21 [id number] 1 cap PO TID PANCREATIC 06/09/21 06/09/21 20,000-63,000-84,000 unit capsule, INSUFFICIENCY delayed rel Previous Rx's Medication Instructions Recorded fenofibrate 160 mg tablet 160 mg PO DAILY Cholesterol #90 04/14/20 tabs omega-3 acid ethyl esters 1 gram 2 gm PO BID Cholesterol #120 caps 04/14/20 capsule insulin glargine 100 unit/mL (3 30 units (0.3 mL) SQ HS Diabetes 04/17/21 mL) subcutaneous pen 30 days ##3 benzonatate 100 mg capsule 100 mg PO TIDP PRN Cough #30 caps 12/28/21 ondansetron 4 mg disintegrating 4 mg PO Q8HP PRN Nausea #20 tabs 12/28/21 tablet azithromycin 250 mg tablet 250 mg PO UD DOSE PK #6 tabs 11/11/22 (Zithromax) benzonatate 100 mg capsule 100 mg PO TIDP PRN Cough #30 caps 11/11/22 guaifenesin 600 mg tablet, 600 - 1,200 mg PO BIDP PRN 11/11/22 extended release 12 hr (Mucinex) Congestion #30 tabs methylprednisolone 4
[2022-11-15 18:28] VITALS: BP 149/90; PULSE 91; RESP 20; TEMP 36.7; O2SAT 96
== END 2022-11-15 18:28 | disposition home or self-care (01) ==
PROVIDERS: Emergency Provider Nurse Practitioner Family; PCP Internal Medicine Adolescent Medicine
DX: R51.9 Headache, unspecified (principal); R42 Dizziness and giddiness; B34.9 Viral infection, unspecified
CPT/HCPCS: 99212; 99213; C9803; G0463; U0003; U0005